=== PATIENT | female | born 1965 | race Caucasian/White ===

== ENCOUNTER 2021-08-09 13:32 | Outpatient (REF) | payer BC, SELFPAY ==
[2021-08-09 14:15] LABS: COVID-19 Test Negative (Negative)
== END 2021-08-09 13:33 | disposition home or self-care (01) ==
LOC: HO.LAB 13:32
PROVIDERS: PCP Internal Medicine; Visit Provider Internal Medicine
DX: Z20.822 Contact with and (suspected) exposure to COVID-19 (principal)
CPT/HCPCS: 87635; C9803

== ENCOUNTER 2022-08-28 11:59 | Outpatient (REF) | payer OTHER, SELFPAY ==
[2022-08-28 13:57] LABS: MANUAL DIFF FLAG NO
[2022-08-28 14:05] LABS: Basophils Percent Auto 0.8 % (0-2); Eosinophils Absolute Auto 0.1 X10*3/uL (0.0-0.4); Hematocrit 41.3 % (37.0-47.0); Hemoglobin 13.8 g/dl (12.0-16.0); Imm Gran Abs Auto 0.02 X10*3/uL (0.00-0.03); Imm Gran Pct Auto 0.4 % (0.0-0.4); Lymphocytes Absolute Auto 1.8 X10*3/uL (1.2-4.9); Lymphocytes Percent Auto 36.4 % (20-40); Mean Corpuscular HGB Conc 33.4 g/dl (31.0-35.0); Mean Corpuscular Hemoglobin 32.5 pg (27.0-33.0); Mean Corpuscular Volume 97.2 fL (80.0-98.0); Mean Platelet Volume 10.1 fL (9.4-12.3); Monocytes Absolute Auto 0.5 X10*3/uL (0.1-1.2); Monocytes Percent Auto 9.8 % (2-11); Neutrophils Absolute Auto 2.5 x10*3/uL (2.0-8.3); Neutrophils Percent Auto 50.6 % (45-73); Platelet Count 207 X10*3/uL (160-400); Red Blood Count 4.25 X10*6/uL (4.20-5.50); Red Cell Distribution Width 12.2 % (11.0-16.0); White Blood Count 4.9 X10*3/uL (4.8-10.8)
[2022-08-28 14:26] LABS: Alanine Aminotransferase 20 U/L (0-31); Albumin Level 4.5 g/dL (3.5-5.0); Alkaline Phosphatase 68 U/L (39-117); Anion Gap 15 (12-20); Aspartate Amino Transferase 31 U/L (5-31); Bilirubin Total 0.6 mg/dL (0.0-1.0); Blood Urea Nitrogen 11 mg/dL (9-16); Calcium 9.8 mg/dL (8.4-10.2); Carbon Dioxide 26 mmol/L (22-29); Chloride 105 mmol/L (96-108); Cholesterol 158 mg/dL; Estimated Glomerular Filt Rate > 60; Glucose Fasting 98 mg/dL (60-99); HDL Cholesterol 43 mg/dL; LDL Cholesterol Calculated 73 mg/dl; Potassium 4.2 mmol/L (3.3-5.1); Sodium 142 mmol/L (135-145); Total Protein 7.2 g/dL (6.5-8.0); Triglycerides 213 mg/dL
[2022-08-28 14:45] LABS: TSH reflex Free T4 1.36 uIU/mL (0.32-4.0)
[2022-09-02 11:18] LABS: Thyroglobulin Antibodies 18 IU/mL (< or = 1)
[2022-09-04 13:48] LABS: Vitamin D 25-OH, D2 <4 ng/mL; Vitamin D 25-OH, D3 51 ng/mL; Vitamin D 25-OH, Total 51 ng/mL (30-100)
== END 2022-08-28 12:00 | disposition home or self-care (01) ==
LOC: HO.HMGCLDS 11:59
PROVIDERS: PCP Internal Medicine; Visit Provider Internal Medicine
DX: I25.10 Atherosclerotic heart disease of native coronary artery without angina pectoris (principal); N28.9 Disorder of kidney and ureter, unspecified; E03.8 Other specified hypothyroidism; G47.9 Sleep disorder, unspecified; Z95.5 Presence of coronary angioplasty implant and graft; Z76.89 Persons encountering health services in other specified circumstances
CPT/HCPCS: 36415; 80053; 80061; 82306; 84443; 85025; 86800

== ENCOUNTER 2022-11-26 12:58 | Outpatient (AMB) | payer OTHER, SELFPAY ==
[2022-11-26 13:05] VITALS: BP 136/84; PULSE 84; O2SAT 95; BMI 21.8
--- NOTE | 2022-11-26 13:05 | MHC.PC.OV ---
Vital Signs 11/26/22 13:05 Height 4 ft 11 in Weight 108 lb 2 oz BMI 21.8 BP 136/84 Blood Pressure Location Lt brachial Position Sitting Pulse 84 Pulse Source Pulse Oximeter Pulse Oximetry (%) 95 Oxygen Delivery Method Room Air Intake Visit Reasons: 3 Month follow up Allergies seafood Adverse Reaction (Severe, Verified 11/26/22 13:06) Anaphylaxis Medication List - Last Reconciled 11/26/22 by Geraldo Rajan MD amlodipine 5 mg PO QPM apixaban (Eliquis) 5 mg PO BID cholecalciferol (vitamin D3) 125 mcg PO DAILY conjugated estrogens (Premarin) 0.625 mg vaginal DAILY famotidine 20 mg PO DAILY fenofibrate micronized 134 mg PO DAILY isosorbide dinitrate 10 mg PO BID levothyroxine 50 mcg PO DAILY loratadine 10 mg PO DAILY metoprolol succinate ER 200 mg PO BEDTIME mirtazapine 15 mg PO QPM pravastatin 40 mg PO DAILY Tobacco use date assessed: 11/26/22 Dental Screening Dental Screen Date: 11/26/22 Did you have a dental visit in the last 12 months?: Yes Did you have a dental problem in the last 6 months where you did not have access to dental care?: No Was dental information given to patient?: No HPI 3 Month follow up HPI Details Patient is a 57-year-old female came in today for her regular follow-up appointment Patient is complaining of possible UTI she is having dysuria and also had blood in her urine 3 days ago. Her symptoms continue. I have ordered urinalysis and I have sent Macrobid for 5 days Patient have a history of premature coronary artery disease, she had 1st [place] at the age of 32. Currently she has 3 coronary artery stents present. She is on a blood thinner for atrial fibrillation which will be a chronic medication She is seeing junior high school teacher Dr. Aguirre with [facility]. However all her medications are coming from PCP office Patient also have stage 2 kidney disease and is seeing Dr Rajput Patient is also on metoprolol 200 mg along with Eliquis and isosorbide , and amlodipine 5 mg History of osteopenia patient had DEXA scan done May of 2021 carotid artery disease: 70% bilateral blockage patient is seeing a vascular specialist for it and having carotid ultrasound every 6 months. Difficulty sleeping at night since menopause patient is on mirtazapine 15 mg. Famotidine for GERD controlled Lipid disorder: Continue fenofirate and pravastatin Allergies: Patient is on loratadine. Patient also have hypothyroidism and is currently taking levothyroxine 50 mcg She has an OBGYN and is taking hormonal vaginal cream through them. Follow-up 3 months [facility] Family History Sister PTSD (post-traumatic stress disorder) Delusional disorder Daughter Bipolar 1 disorder Father Alcohol abuse Social History Housing: House Patient Tobacco Use Status: Current everyday Tobacco user Cigarettes Per Day: 5 e-Cigarette/Vaping Use: Never Used service: No Current occupational status: employed Current occupation: [employer] Current occupational exposures/hazards: No Cognitive needs: No Hearing needs: No Vision needs: Yes Questionnaire Thrive Questionnaire Date Thrive assessed: 08/27/22 AUDIT C Alcohol Use Questionnaire (AUDIT-C) 1. How often do you have a drink containing alcohol?: 4 or more times a week 2. How many drinks containing alcohol do you have on a typical day when you are drinking?: 3 or 4 3. How often do you have six or more drinks on one occasion?: Never Total Score: 5 Score Reviewed/Action Taken: Yes SADIA-7 AMB Questionnaire SADIA-7 Date SADIA - 7 assessed: 08/27/22 Source: Developed by Drs. Michael Asher, Naila Freeman, Noah Butts and colleagues, with an educational anel from [employer] Review of Systems Const Denies chills and Denies fever(s) ENT Denies epistaxis and Denies nasal discharge Card Denies chest pain Resp Denies chest congestion, Denies cough and Denies hemoptysis GI Denies diarrhea and Denies nausea Skin/Breast Denies rash Neuro Reports no additional complaints Psych Reports no additional complaints Endo Reports no additional complaints Physical exam (Primary Care) Vital Signs: Last Vital Signs Pulse 84 11/26/22 13:05 BP 136/84 11/26/22 13:05 Pulse Ox 95 11/26/22 13:05 Oxygen Delivery Method Room Air 11/26/22 13:05 BMI result Body Mass Index 21.8 Tobacco/Smoking Status: Tobacco use Status Tobacco use date assessed 11/26/22 11/26/22 13:08 Patient Tobacco Use Status Current everyday Tobacco 11/26/22 13:08 e-Cigarette/Vaping Use Never Used 11/26/22 13:08 Thrive Assessment: Date of Thrive Assessment Date Thrive assessed 08/27/22 11/26/22 13:08 Const General: cooperative, comfortable and no acute distress Orientation/consciousness: patient oriented x3 HENMT Head: Yes normocephalic Eyes General: appearance normal, both eyes and all related structures Neck Neck: Yes supple Resp Effort & Inspection: normal respiratory effort, no cough and no stridor Cardio Rhythm: regular rhythm Heart sounds: S1 normal heart sound present and S2 normal heart sound present Skin General skin exam: turgor normal Neuro General: patient oriented x3, tone normal and moves all extremities Extrem Right lower extremity: no edema Left lower extremity: no edema Assessment and Plan Assessment & Plan (1) Dysuria: Code(s): R30.0 - Dysuria (2) CAD (coronary artery disease): Code(s): I25.10 - Atherosclerotic heart disease of [place] coronary artery without angina pectoris (3) Stented coronary artery: Code(s): Z95.5 - Presence of coronary angioplasty implant and graft (4) Nephropathy: Code(s): N28.9 - Disorder of kidney and ureter, unspecified (5) Other specified hypothyroidism: Code(s): E03.8 - Other specified hypothyroidism (6) Difficulty sleeping: Code(s): G47.9 - Sleep disorder, unspecified (7) Lipid disorder: Code(s): E78.9 - Disorder of lipoprotein metabolism, unspecified (8) Environmental allergies: Code(s): Z91.09 - Other allergy status, other than to drugs and biological substances (9) Chronic GERD: Code(s): K21.9 - Gastro-esophageal reflux disease without esophagitis Plan Patient is a 57-year-old female came in today for her regular follow-up appointment Patient is complaining of possible UTI she is having dysuria and also had blood in her urine 3 days ago. Her symptoms continue. I have ordered urinalysis and I have sent Macrobid for 5 days Patient have a history of premature coronary artery disease, she had 1st [place] at the age of 32. Currently she has 3 coronary artery stents present. She is on a blood thinner for atrial fibrillation which will be a chronic medication She is seeing junior high school teacher Dr. Aguirre with [facility]. However all her medications are coming from PCP office Patient also have stage 2 kidney disease and is seeing Dr Rajput Patient is also on metoprolol 200 mg along with Eliquis and isosorbide , and amlodipine 5 mg History of osteopenia patient had DEXA scan done May of 2021 carotid artery disease: 70% bilateral blockage patient is seeing a vascular specialist for it and having carotid ultrasound every 6 months. Difficulty sleeping at night since menopause patient is on mirtazapine 15 mg. Famotidine for GERD controlled Lipid disorder: Continue fenofirate and pravastatin Allergies: Patient is on loratadine. Patient also have hypothyroidism and is currently taking levothyroxine 50 mcg She has an OBGYN and is taking hormonal vaginal cream through them. Follow-up 3 months Orders: Orders UA CC w/rflx Micro + Cult Today R30.0 - Dysuria Medications: New nitrofurantoin monohyd/m-cryst 100 mg (Macrobid) must administer with a meal/food 100 mg PO Q12H 5 days 10 caps 0RF Coding Level of Care Code Est Pt Level 4 (44069) Diagnoses Dysuria R30.0 CAD (coronary artery disease) I25.10 Stented coronary artery Z95.5 Nephropathy N28.9 Other specified hypothyroidism E03.8 Difficulty sleeping G47.9 Lipid disorder E78.9 Environmental allergies Z91.09 Chronic GERD K21.9
== END 2022-11-26 13:33 | disposition home or self-care (01) ==
PROVIDERS: Visit Provider Internal Medicine
DX: K21.9 Gastro-esophageal reflux disease without esophagitis (principal); Z95.5 Presence of coronary angioplasty implant and graft; E03.8 Other specified hypothyroidism; Z91.09 Other allergy status, other than to drugs and biological substances; R30.0 Dysuria; I25.10 Atherosclerotic heart disease of native coronary artery without angina pectoris; N28.9 Disorder of kidney and ureter, unspecified; G47.9 Sleep disorder, unspecified; E78.9 Disorder of lipoprotein metabolism, unspecified
CPT/HCPCS: 99214

== ENCOUNTER 2022-11-26 13:34 | Outpatient (REF) | payer OTHER, SELFPAY ==
[2022-11-26 16:15] LABS: Appearance Urine Clear; Color Urine DK YELLOW; Glucose Urine UA Negative (Negative); Leukocyte Esterase Urine Negative (Negative); Nitrite Urine Negative (Negative); PH 5.5 (5.0-9.0); Specific Gravity - Urine 1.025 (1.005-1.025); Urine Blood Negative (Negative); Urine Ketones Trace mg/dL (Negative); Urine Protein Trace mg/dL (Neg-Trace)
== END 2022-11-26 13:35 | disposition home or self-care (01) ==
LOC: HO.HMGCLDS 13:34
PROVIDERS: PCP Internal Medicine; Visit Provider Internal Medicine
DX: R30.0 Dysuria (principal)
CPT/HCPCS: 81003

== ENCOUNTER 2023-02-27 13:00 | Outpatient (AMB) | payer OTHER, SELFPAY ==
--- NOTE | 2023-02-27 13:05 | MHC.PC.OV ---
Vital Signs 02/27/23 13:06 Height 4 ft 11 in Weight 104 lb BMI 21.0 BP 134/80 Blood Pressure Location Lt brachial Position Sitting Pulse 97 Pulse Source Pulse Oximeter Pulse Oximetry (%) 95 Oxygen Delivery Method Room Air Intake Visit Reasons: 3 month follow up Intake Note: Pt is here today for 3 months follow up visit. Allergies seafood Adverse Reaction (Severe, Verified 02/27/23 13:09) Anaphylaxis Medication List - Last Reconciled 02/27/23 by Geraldo Rajan MD amlodipine 5 mg PO QPM apixaban (Eliquis) 5 mg PO BID cholecalciferol (vitamin D3) 125 mcg PO DAILY conjugated estrogens (Premarin) 0.625 mg vaginal DAILY famotidine 20 mg PO DAILY fenofibrate micronized 134 mg PO DAILY isosorbide dinitrate 10 mg PO BID levothyroxine 50 mcg PO DAILY loratadine 10 mg PO DAILY metoprolol succinate ER 200 mg PO BEDTIME mirtazapine 15 mg PO QPM pravastatin 40 mg PO DAILY Tobacco use date assessed: 11/26/22 HPI 3 month follow up HPI Details Patient is a 57-year-old female came in today for her regular follow-up appointment Continued to drain her Alcohol Services goal is 7 patient does admit that she have a problem with drinking excessive alcohol However she says that if she does not drink she cannot fall asleep. She is currently taking mirtazapine 15 mg to sleep at night as well. We talked about the toxic effect of alcohol and I have offered her help he informed medication to counteract the withdrawal affect if she do decide to stop. Patient says that she will think about it and she will get back to me meanwhile she will try to cut back. She has developed of small cyst on her index finger left hand which is causing problem using hand she is requesting a referral to a hand specialist I have ordered x-ray as well to further evaluate the problem. Patient have a history of premature coronary artery disease, she had 1st [place] at the age of 32. Currently she has 3 coronary artery stents present. She is on a blood thinner for atrial fibrillation which will be a chronic medication She is seeing forestry farm laborer Dr. Aguirre with [facility]. However all her medications are coming from PCP office Patient also have stage 2 kidney disease and was seeing Dr Rajput however her kidney functions are within normal limits now we are keeping an eye Patient says that her wine bottle inspector called her upset that he is leaving the practice. Patient is also on metoprolol 200 mg along with Eliquis and isosorbide , and amlodipine 5 mg, blood pressure is stable patient is monitoring blood pressure at home as well History of osteopenia patient had DEXA scan done May of 2021 , continue vitamin-D supplement and weight-bearing exercises carotid artery disease: 70% bilateral blockage patient is seeing a vascular specialist for it and having carotid ultrasound every 6 months. Difficulty sleeping at night since menopause patient is on mirtazapine 15 mg, she has tried taking 30 mg mirtazapine rather than drinking at night but that made her too groggy in the morning I have talked to further, that go if she stops drinking alcohol she will be able to tolerate 30 mg and will be able to sleep.. Famotidine for GERD controlled Lipid disorder: Continue fenofirate and pravastatin Allergies: Patient is on loratadine. Patient also have hypothyroidism and is currently taking levothyroxine 50 mcg she is due for labs She has an OBGYN and is taking hormonal vaginal cream through them. Follow-up 3 months Flu vaccine given [facility] Family History Sister PTSD (post-traumatic stress disorder) Delusional disorder Daughter Bipolar 1 disorder Father Alcohol abuse Social History Housing: House Patient Tobacco Use Status: Current everyday Tobacco user Cigarettes Per Day: 5 e-Cigarette/Vaping Use: Never Used service: No Current occupational status: employed Current occupation: [employer] Current occupational exposures/hazards: No Cognitive needs: No Hearing needs: No Vision needs: Yes Questionnaire Thrive Questionnaire Date Thrive assessed: 08/27/22 I am a: Patient What is your living situation today?: I have a steady place to live Within the past 12 months, did the food you bought not last and you didn't have the money to get more?: Sometimes True Within the past 12 months, did you worry whether your food would run out before you got money to buy more?: Sometimes True AUDIT C Alcohol Use Questionnaire (AUDIT-C) 1. How often do you have a drink containing alcohol?: 4 or more times a week 2. How many drinks containing alcohol do you have on a typical day when you are drinking?: 3 or 4 3. How often do you have six or more drinks on one occasion?: Monthly Total Score: 7 SADIA-7 AMB Questionnaire SADIA-7 Date SADIA - 7 assessed: 08/27/22 Feeling nervous, anxious, or on edge: 1 = Several days Not being able to stop or control worryin = Not at all Worrying too much about different things: 1 = Several days Trouble relaxin = Several days Being so restless that it is hard to sit still: 0 = Not at all Becoming easily annoyed or irritable: 1 = Several days Feeling afraid as if something awful might happen: 0 = Not at all Total SADIA-7 score (0-4 normal; 5-9 mild; 10-14 moderate; 15-21 severe): 4 Source: Developed by Drs. Michael Asher, Naila Freeman, Noah Butts and colleagues, with an educational anel from [employer]. Review of Systems Const Denies chills and Denies fever(s) ENT Denies epistaxis and Denies nasal discharge Card Denies chest pain Resp Denies chest congestion, Denies cough and Denies hemoptysis GI Denies diarrhea and Denies nausea Skin/Breast Denies rash Neuro Reports no additional complaints Psych Reports no additional complaints Endo Reports no additional complaints Physical exam (Primary Care) Vital Signs: Last Vital Signs Pulse 97 02/27/23 13:06 BP 134/80 02/27/23 13:06 Pulse Ox 95 02/27/23 13:06 Oxygen Delivery Method Room Air 02/27/23 13:06 BMI result Body Mass Index 21.0 Tobacco/Smoking Status: Tobacco use Status Tobacco use date assessed 11/26/22 02/27/23 13:12 Patient Tobacco Use Status Current everyday Tobacco 02/27/23 13:12 e-Cigarette/Vaping Use Never Used 02/27/23 13:12 Thrive Assessment: Date of Thrive Assessment Date Thrive assessed 08/27/22 02/27/23 13:12 Const General: cooperative, comfortable and no acute distress Orientation/consciousness: patient oriented x3 HENMT Head: Yes normocephalic Eyes General: appearance normal, both eyes and all related structures Neck Neck: Yes supple Resp Effort & Inspection: normal respiratory effort, no cough and no stridor Cardio Rhythm: regular rhythm Heart sounds: S1 normal heart sound present and S2 normal heart sound present Skin General skin exam: turgor normal Neuro General: patient oriented x3, tone normal and moves all extremities Extrem Right lower extremity: no edema Left lower extremity: no edema Office Procedures Flu Questionnaire Does the patient have a severe egg allergy?: No Does the patient have severe life threatening allergies?: No Does the patient have a fever or illness today?: No Has the patient ever had Guillain-Hornitos Syndrome?: No Has the patient ever had any past reaction to a flu shot?: No Immunizations flu vacc [id number] 6mos up(PF) 60 mcg(15 mcgx4)/0.5 mL IM syringe Performing Provider: Geraldo Rajan MD Performing Location: [facility] Administered by: Myke Manuel CMA on 02/27/23 13:32 Dose Route Admin Location Dispensed Lot Number Expiration Date NDC Cart Driver 0.5 mL IM Right Deltoid 0.5 mL [id number] 11/15/23 [id number] [place] VIS Given Date VIS Provided VIS Publication Date 02/27/23 Single Vaccine 20 Eligibility Eligibility Date Funding Source Not [facility] Eligible 02/27/23 Private Assessment and Plan Assessment & Plan (1) Lipid disorder: Code(s): E78.9 - Disorder of lipoprotein metabolism, unspecified (2) Alcoholism: Code(s): F10.20 - Alcohol dependence, uncomplicated (3) Finger pain, left: Code(s): M79.645 - Pain in left finger(s) (4) Other specified hypothyroidism: Code(s): E03.8 - Other specified hypothyroidism (5) Nephropathy: Code(s): N28.9 - Disorder of kidney and ureter, unspecified (6) Stented coronary artery: Code(s): Z95.5 - Presence of coronary angioplasty implant and graft (7) CAD (coronary artery disease): Code(s): I25.10 - Atherosclerotic heart disease of [place] coronary artery without angina pectoris Qualifiers: Associated angina: with stable angina Coronary Disease-Associated Artery/Lesion type: [place] artery [place] vs. transplanted heart: [place] heart Qualified Code(s): I25.118 - Atherosclerotic heart disease of [place] coronary artery with other forms of angina pectoris (8) Difficulty sleeping: Code(s): G47.9 - Sleep disorder, unspecified (9) Environmental allergies: Code(s): Z91.09 - Other allergy status, other than to drugs and biological substances (10) Chronic GERD: Code(s): K21.9 - Gastro-esophageal reflux disease without esophagitis (11) Hx of intermediate use of blood thinners: Code(s): Z92.29 - Personal history of other drug therapy (12) Alcohol cessation counseling: Code(s): Z71.41 - Alcohol abuse counseling and surveillance of alcoholic Plan Patient is a 57-year-old female came in today for her regular follow-up appointment Continued to drain her Alcohol Services goal is 7 patient does admit that she have a problem with drinking excessive alcohol However she says that if she does not drink she cannot fall asleep. She is currently taking mirtazapine 15 mg to sleep at night as well. We talked about the toxic effect of alcohol and I have offered her help he informed medication to counteract the withdrawal affect if she do decide to stop. Patient says that she will think about it and she will get back to me meanwhile she will try to cut back. She has developed of small cyst on her index finger left hand which is causing problem using hand she is requesting a referral to a hand specialist I have ordered x-ray as well to further evaluate the problem. Patient have a history of premature coronary artery disease, she had 1st [place] at the age of 32. Currently she has 3 coronary artery stents present. She is on a blood thinner for atrial fibrillation which will be a chronic medication She is seeing forestry farm laborer Dr. Aguirre with [facility]. However all her medications are coming from PCP office Patient also have stage 2 kidney disease and was seeing Dr Rajput however her kidney functions are within normal limits now we are keeping an eye Patient says that her wine bottle inspector called her upset that he is leaving the practice. Patient is also on metoprolol 200 mg along with Eliquis and isosorbide , and amlodipine 5 mg, blood pressure is stable patient is monitoring blood pressure at home as well History of osteopenia patient had DEXA scan done May of 2021 , continue vitamin-D supplement and weight-bearing exercises carotid artery disease: 70% bilateral blockage patient is seeing a vascular specialist for it and having carotid ultrasound every 6 months. Difficulty sleeping at night since menopause patient is on mirtazapine 15 mg, she has tried taking 30 mg mirtazapine rather than drinking at night but that made her too groggy in the morning I have talked to further, that go if she stops drinking alcohol she will be able to tolerate 30 mg and will be able to sleep.. Famotidine for GERD controlled Lipid disorder: Continue fenofirate and pravastatin Allergies: Patient is on loratadine. Patient also have hypothyroidism and is currently taking levothyroxine 50 mcg she is due for labs She has an OBGYN and is taking hormonal vaginal cream through them. Follow-up 3 months Flu vaccine given Orders: Orders Complete Blood Count Auto Diff Today E03.8 - Other specified hypothyroidism, E78.9 - Disorder of lipoprotein metabolism, unspecified, G47.9 - Sleep disorder, unspecified, I25.10 - Atherosclerotic heart disease of [place] coronary artery without angina pectoris, K21.9 - Gastro-esophageal reflux disease without esophagitis, N28.9 - Disorder of kidney and ureter, unspecified, Z91.09 - Other allergy status, other than to drugs and biological substances, Z95.5 - Presence of coronary angioplasty implant and graft TSH reflex Free T4 Today E03.8 - Other specified hypothyroidism, E78.9 - Disorder of lipoprotein metabolism, unspecified, G47.9 - Sleep disorder, unspecified, I25.10 - Atherosclerotic heart disease of [place] coronary artery without angina pectoris, K21.9 - Gastro-esophageal reflux disease without esophagitis, N28.9 - Disorder of kidney and ureter, unspecified, Z91.09 - Other allergy status, other than to drugs and biological substances, Z95.5 - Presence of coronary angioplasty implant and graft Lipid Panel Today E78.9 - Disorder of lipoprotein metabolism, unspecified, F10.20 - Alcohol dependence, uncomplicated, N28.9 - Disorder of kidney and ureter, unspecified Magnesium Today E78.9 - Disorder of lipoprotein metabolism, unspecified, F10.20 - Alcohol dependence, uncomplicated, N28.9 - Disorder of kidney and ureter, unspecified Vitamin B12 Today E78.9 - Disorder of lipoprotein metabolism, unspecified, F10.20 - Alcohol dependence, uncomplicated, N28.9 - Disorder of kidney and ureter, unspecified XR finger LT min 2V Today M79.645 - Pain in left finger(s) Comprehensive [place]. Panel Fast Today E78.9 - Disorder of lipoprotein metabolism, unspecified, F10.20 - Alcohol dependence, uncomplicated, N28.9 - Disorder of kidney and ureter, unspecified Influenza [id number] Immunization Today Z23 - Encounter for immunization Referrals Hand Surgery Referral M79.645 - Pain in left finger(s) Coding Level of Care Code Est Pt Level 4 (59427) Diagnoses Lipid disorder E78.9 Alcoholism F10.20 Finger pain, left M79.645 Other specified hypothyroidism E03.8 Nephropathy N28.9 Stented coronary artery Z95.5 Coronary artery disease of [place] artery of [place] heart with stable angina pectoris I25.118 Associated angina: with stable angina Coronary Disease-Associated Artery/Lesion type: [place] artery [place] vs. 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
[2023-02-27 13:06] VITALS: BP 134/80; PULSE 97; O2SAT 95; BMI 21.0
== END 2023-02-27 14:02 | disposition home or self-care (01) ==
PROVIDERS: PCP Internal Medicine; Visit Provider Internal Medicine
DX: Z23 Encounter for immunization (principal)
CPT/HCPCS: 90471; 90686; 99214

== ENCOUNTER 2023-02-27 13:32 | Outpatient (REF) | payer OTHER, SELFPAY ==
[2023-02-27 16:04] LABS: MANUAL DIFF FLAG NO
[2023-02-27 16:09] LABS: Basophils Absolute Auto 0.1 X10*3/uL (0.0-0.2); Basophils Percent Auto 0.9 % (0-2); Eosinophils Absolute Auto 0.1 X10*3/uL (0.0-0.4); Eosinophils Percent Auto 1.6 % (0-4); Hematocrit 42.8 % (37.0-47.0); Hemoglobin 14.4 g/dl (12.0-16.0); Imm Gran Abs Auto 0.02 X10*3/uL (0.00-0.03); Imm Gran Pct Auto 0.4 % (0.0-0.4); Lymphocytes Absolute Auto 1.5 X10*3/uL (1.2-4.9); Mean Corpuscular HGB Conc 33.6 g/dl (31.0-35.0); Mean Corpuscular Hemoglobin 32.6 pg (27.0-33.0); Mean Corpuscular Volume 96.8 fL (80.0-98.0); Mean Platelet Volume 10.5 fL (9.4-12.3); Monocytes Absolute Auto 0.6 X10*3/uL (0.1-1.2); Neutrophils Absolute Auto 3.3 x10*3/uL (2.0-8.3); Neutrophils Percent Auto 60.1 % (45-73); Platelet Count 178 X10*3/uL (160-400); Red Blood Count 4.42 X10*6/uL (4.20-5.50); Red Cell Distribution Width 12.1 % (11.0-16.0); White Blood Count 5.5 X10*3/uL (4.8-10.8)
[2023-02-27 16:37] LABS: Alanine Aminotransferase 21 U/L (0-31); Albumin Level 4.6 g/dL (3.5-5.0); Alkaline Phosphatase 62 U/L (39-117); Anion Gap 15 (12-20); Aspartate Amino Transferase 41 U/L (5-31); Bilirubin Total 0.7 mg/dL (0.0-1.0); Blood Urea Nitrogen 10 mg/dL (9-16); Calcium 10.6 mg/dL (8.4-10.2); Carbon Dioxide 27 mmol/L (22-29); Chloride 102 mmol/L (96-108); Cholesterol 160 mg/dL (<200); Estimated Glomerular Filt Rate > 60; Glucose Fasting 97 mg/dL (60-99); HDL Cholesterol 47 mg/dL (>40); LDL Cholesterol Calculated 74 mg/dL (<100); Magnesium 1.5 mg/dL (1.6-2.6); Potassium 4.2 mmol/L (3.3-5.1); Sodium 140 mmol/L (135-145); Triglycerides 195 mg/dL (<150)
[2023-02-27 16:44] LABS: TSH reflex Free T4 2.01 uIU/mL (0.32-4.0)
[2023-02-27 16:54] LABS: Vitamin B12 285 pg/mL (200-900)
== END 2023-02-27 13:33 | disposition home or self-care (01) ==
LOC: HO.HMGCLDS 13:32
PROVIDERS: PCP Internal Medicine; Visit Provider Internal Medicine
DX: E78.9 Disorder of lipoprotein metabolism, unspecified (principal); N28.9 Disorder of kidney and ureter, unspecified; E03.8 Other specified hypothyroidism; I25.10 Atherosclerotic heart disease of native coronary artery without angina pectoris; G47.9 Sleep disorder, unspecified; K21.9 Gastro-esophageal reflux disease without esophagitis; F10.20 Alcohol dependence, uncomplicated; Z95.5 Presence of coronary angioplasty implant and graft; Z91.09 Other allergy status, other than to drugs and biological substances
CPT/HCPCS: 36415; 80053; 80061; 82607; 83735; 84443; 85025

== ENCOUNTER 2023-03-02 11:49 | Outpatient (REF) | payer OTHER, SELFPAY ==
--- NOTE | ~2023-03-02 | XR_ITS ---
EXAMINATION: XR FINGER, LEFT CLINICAL INFORMATION: Left finger pain. COMPARISON: None available. TECHNIQUE: PA view of the left hand as well as oblique and lateral views of the left index finger. FINDINGS: Soft tissue calcification along the ulnar aspect of the 2nd distal interphalangeal joint measuring up to 0.5 cm with adjacent bony remodeling. Mild overlying soft tissue swelling. No adjacent periarticular erosion. No acute fracture or dislocation. No joint space narrowing or marginal osteophytes. No concerning lytic or blastic osseous lesion. XR/XR finger LT min 2V IMPRESSION: Dystrophic calcification along the ulnar aspect of the second distal interphalangeal joint with adjacent soft tissue swelling. Findings could represent sequela of remote trauma. No adjacent osseous erosion to suggest gout arthropathy, however, this cannot be entirely excluded in the appropriate clinical setting.
== END 2023-03-02 11:50 | disposition home or self-care (01) ==
LOC: HO.HMGCX 11:49
PROVIDERS: PCP Internal Medicine; Visit Provider Internal Medicine
DX: M79.645 Pain in left finger(s) (principal)
CPT/HCPCS: 73140

== ENCOUNTER 2023-03-05 08:42 | Outpatient (AMB) | payer OTHER, SELFPAY ==
--- NOTE | 2023-03-05 10:11 | MHC.PC.OV ---
Intake Visit Reasons: Discuss Labs ~[phone] Allergies seafood Adverse Reaction (Severe, Verified 03/05/23 10:12) Anaphylaxis Medication List - Last Reconciled 03/05/23 by Geraldo Rajan MD amlodipine 5 mg PO QPM apixaban (Eliquis) 5 mg PO BID cholecalciferol (vitamin D3) 125 mcg PO DAILY conjugated estrogens (Premarin) 0.625 mg vaginal DAILY famotidine 20 mg PO DAILY fenofibrate micronized 134 mg PO DAILY isosorbide dinitrate 10 mg PO BID levothyroxine 50 mcg PO DAILY loratadine 10 mg PO DAILY metoprolol succinate ER 200 mg PO BEDTIME mirtazapine 15 mg PO QPM pravastatin 40 mg PO DAILY Tobacco use date assessed: 03/05/23 Dental Screening Dental Screen Date: 03/05/23 Did you have a dental visit in the last 12 months?: Yes Did you have a dental problem in the last 6 months where you did not have access to dental care?: No Was dental information given to patient?: Patient has dentist HPI Discuss Labs ~[phone] HPI Details Patient is a 57-year-old female this is a tele medicine visit to go over lab reports Patient's calcium level came back slightly elevated B12 level is low normal And magnesium came back low I have sent supplement for magnesium in B12 patient is to continue that for 3 months and we will repeat level again Her calcium level was normal before we will repeated again in 3 months as well One of her liver enzyme is also in 40s we will continue to monitor that. Patient have appointment with me in 3 months for follow-up she will have labs done before visit The lump on her index finger x-ray shows possible old trauma and some calcification She has appointment for evaluation by orthopedic next month. [facility] Family History Sister PTSD (post-traumatic stress disorder) Delusional disorder Daughter Bipolar 1 disorder Father Alcohol abuse Social History Housing: House Patient Tobacco Use Status: Current everyday Tobacco user Cigarettes Per Day: 5 e-Cigarette/Vaping Use: Never Used service: No Current occupational status: employed Current occupation: [employer] Current occupational exposures/hazards: No Cognitive needs: No Hearing needs: No Vision needs: Yes Questionnaire Thrive Questionnaire Date Thrive assessed: 08/27/22 AUDIT C Alcohol Use Questionnaire (AUDIT-C) 1. How often do you have a drink containing alcohol?: 4 or more times a week 2. How many drinks containing alcohol do you have on a typical day when you are drinking?: 3 or 4 3. How often do you have six or more drinks on one occasion?: Never Total Score: 5 Score Reviewed/Action Taken: Yes SADIA-7 AMB Questionnaire SADIA-7 Date SADIA - 7 assessed: 08/27/22 Source: Developed by Drs. Michael Asher, Naila Freeman, Noah Butts and colleagues, with an educational anel from [employer]. Review of Systems Const Denies chills and Denies fever(s) ENT Denies epistaxis and Denies nasal discharge Card Denies chest pain Resp Denies chest congestion, Denies cough and Denies hemoptysis GI Denies diarrhea and Denies nausea Skin/Breast Denies rash Neuro Reports no additional complaints Psych Reports no additional complaints Endo Reports no additional complaints Physical exam (Primary Care) Tobacco/Smoking Status: Tobacco use Status Tobacco use date assessed 03/05/23 03/05/23 10:13 Patient Tobacco Use Status Current everyday Tobacco 03/05/23 10:13 e-Cigarette/Vaping Use Never Used 03/05/23 10:13 Thrive Assessment: Date of Thrive Assessment Date Thrive assessed 08/27/22 03/05/23 10:13 Telehealth Telehealth Location of provider rendering services: practice address Location of patient: address on file Patient Identification confirmed using: Name, : Yes Telehealth method: voice only Patient verbally consented to treatment: Yes Patient verbally consented to billing insurance company: Yes Patient informed of any privacy concerns related to visit: Yes Assessment and Plan Assessment & Plan (1) Low magnesium level: Code(s): R79.0 - Abnormal level of blood mineral (2) Low vitamin B12 level: Code(s): R79.89 - Other specified abnormal findings of blood chemistry (3) Serum calcium elevated: Code(s): E83.52 - Hypercalcemia (4) LFT elevation: Code(s): R79.89 - Other specified abnormal findings of blood chemistry (5) Finger pain, left: Code(s): M79.645 - Pain in left finger(s) Plan Patient is a 57-year-old female this is a tele medicine visit to go over lab reports Patient's calcium level came back slightly elevated B12 level is low normal And magnesium came back low I have sent supplement for magnesium in B12 patient is to continue that for 3 months and we will repeat level again Her calcium level was normal before we will repeated again in 3 months as well One of her liver enzyme is also in 40s we will continue to monitor that. Patient have appointment with me in 3 months for follow-up she will have labs done before visit The lump on her index finger x-ray shows possible old trauma and some calcification She has appointment for evaluation by orthopedic next month. Orders: Orders Vitamin B12 2 Months E83.52 - Hypercalcemia, R79.0 - Abnormal level of blood mineral, R79.89 - Other specified abnormal findings of blood chemistry Comprehensive Met. Panel 2 Months E83.52 - Hypercalcemia, R79.0 - Abnormal level of blood mineral, R79.89 - Other specified abnormal findings of blood chemistry Magnesium 2 Months E83.52 - Hypercalcemia, R79.0 - Abnormal level of blood mineral, R79.89 - Other specified abnormal findings of blood chemistry Medications: New magnesium oxide 400 mg PO DAILY 90 days 90 caps 0RF cyanocobalamin (vitamin B-12) 1,000 mcg PO DAILY 90 days 90 tabs 0RF Coding Level of Care Code Tele Est Pt Level 4 (51988) Diagnoses Low magnesium level R79.0 Low vitamin B12 level R79.89 Serum calcium elevated E83.52 LFT elevation R79.89 Finger pain, left M79.645 Time Spent (min) 20
== END 2023-03-05 12:09 | disposition home or self-care (01) ==
PROVIDERS: PCP Internal Medicine; Visit Provider Internal Medicine
DX: R79.89 Other specified abnormal findings of blood chemistry (principal); E83.52 Hypercalcemia; M79.645 Pain in left finger(s)
CPT/HCPCS: 99214

== ENCOUNTER 2023-03-25 14:19 | Outpatient (AMB) | payer OTHER, SELFPAY ==
--- NOTE | 2023-03-25 14:28 | MHC.OFFVIS ---
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 States she has a lump she on her finger that has increase in size. States it appeared about 5-6 yrs ago. No injury she can recall. Report this causes discomfort when holding on to a knife, pen or spoon. States it feels tight and restricting her finger ROM. Denies numbness or tingling in finger. Allergies seafood Adverse Reaction (Severe, Verified 03/25/23 14:30) Anaphylaxis Medication List - Last Reconciled 03/25/23 by Smita Davis MD amlodipine 5 mg PO QPM apixaban (Eliquis) 5 mg PO BID cholecalciferol (vitamin D3) 125 mcg PO DAILY conjugated estrogens (Premarin) 0.625 mg vaginal DAILY cyanocobalamin (vitamin B-12) 1,000 mcg PO DAILY 90 days famotidine 20 mg PO DAILY fenofibrate micronized 134 mg PO DAILY isosorbide dinitrate 10 mg PO BID levothyroxine 50 mcg PO DAILY loratadine 10 mg PO DAILY magnesium oxide 400 mg PO DAILY 90 days metoprolol succinate ER 200 mg PO BEDTIME mirtazapine 15 mg PO QPM pravastatin 40 mg PO DAILY HPI HPI Comments History of Present Illness Details The node has been there on left 2nd digit for 10 years. Denies injuries, falls or fracture. It has grown in size. Annoying but not painful, especially when trying to write or hold something. Tight to bend on DIP. Admits morning stiffness, 5 minutes. Right CMC pain told to be arthritis. Had gone to hand specialist at [facility]. Had injection, was painful and didn't work. Denies family history of RA. Denies numbness on fingers. [facility] Family History Sister PTSD (post-traumatic stress disorder) Delusional disorder Daughter Bipolar 1 disorder Father Alcohol abuse Social History Housing: House Patient Tobacco Use Status: Current everyday Tobacco user Cigarettes Per Day: 5 e-Cigarette/Vaping Use: Never Used service: No Current occupational status: employed Current occupation: [employer] Current occupational exposures/hazards: No Cognitive needs: No Hearing needs: No Vision needs: Yes Review of Systems Const All systems reviewed & are unremarkable except as noted in HPI and below Physical Exam Vital Signs: BMI result Body Mass Index 21.0 Constitutional: Patient appears to be in no acute distress, well nourished and well developed. MSK: Palpable movable nodule on ulnar side of left 2nd DIP joint. Mildly tender to touch. Not warm or red. No swelling on fingers. Right CMC joint tender and enlarged. No intrinsic hand weakness noted. No atrophy noted. Franko test negative. Carpal compression test negative. Tinel sign negative. Strength is 5/5 in all muscle groups tested. No increased tone noted. Neurological: Neurologic examination of the upper and lower extremities was nonfocal with intact sensation, muscle stretch reflexes and without focal motor deficits . Trujillo?s negative bilaterally. Gait is non-antalgic without loss of balance. 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 It has been enlarging per patient. No erosions on xray. We will see if Dr. Anderson can remove surgically, referral placed and appointment to be scheduled. In the meantime, we will send for blood tests to rule out inflammatory arthritis or gout (GLENNA, RF and uric acid). Assessment and plan discussed with patient, and patient was agreeable. All questions were answered thoroughly. Smita Davis MD, MARINA Board Certified, [place] Board [employer] Physical Medicine and Rehabilitation (ABPMR) Board Certified, [place] Board of Electrodiagnostic Medicine (ABEM) Orders: Orders Rheumatoid Factor Today M15.1 - Heberden's nodes (with arthropathy), M79.645 - Pain in left finger(s) GLENNA Reflex Titer and Pattern Today M15.1 - Heberden's nodes (with arthropathy), M79.645 - Pain in left finger(s) Uric Acid Today M15.1 - Heberden's nodes (with arthropathy), M79.645 - Pain in left finger(s) Referrals Orthopedics Referral M15.1 - Heberden's nodes (with arthropathy), M79.645 - Pain in left finger(s) Coding Level of Care Code New Pt Level 4 (47171) Diagnoses Finger pain, left M79.645 Heberden's node M15.1
[2023-03-25 14:31] VITALS: BMI 21.0
== END 2023-03-25 14:47 | disposition home or self-care (01) ==
PROVIDERS: PCP Internal Medicine; Visit Provider Physical Medicine & Rehabilitation
DX: M79.645 Pain in left finger(s) (principal); M15.1 Heberden's nodes (with arthropathy)
CPT/HCPCS: 99204

== ENCOUNTER → 2023-03-25 14:19 | Outpatient (BNVA) | payer OTHER, SELFPAY | PROVIDERS: PCP Internal Medicine; Visit Provider Physical Medicine & Rehabilitation | DX: M79.645 Pain in left finger(s) (principal); M15.1 Heberden's nodes (with arthropathy) | CPT/HCPCS: 99202 ==

== ENCOUNTER 2023-03-27 13:12 | Outpatient (REF) | payer OTHER, SELFPAY ==
[2023-03-27 16:10] LABS: Rheumatoid Factor < 13.0 IU/mL (<15.0)
[2023-03-27 16:17] LABS: Uric Acid 5.2 mg/dL (2.4-5.7)
[2023-04-06 15:54] LABS: Anti Nuclear Antibody Pattern Nuclear, Homogeneous; Anti Nuclear Antibody Screen POSITIVE (NEGATIVE)
== END 2023-03-27 13:13 | disposition home or self-care (01) ==
LOC: HO.HMGCLDS 13:12
PROVIDERS: PCP Internal Medicine; Visit Provider Physical Medicine & Rehabilitation
DX: M79.645 Pain in left finger(s) (principal); M15.1 Heberden's nodes (with arthropathy)
CPT/HCPCS: 36415; 84550; 86038; 86039; 86431

== ENCOUNTER 2023-04-15 14:46 | Outpatient (AMB) | payer OTHER, SELFPAY ==
--- NOTE | 2023-04-15 14:53 | MHC.OFFVIS ---
Intake Intake Visit Reasons: OV-excision/removal calcification LT DIP 2nd digit Intake Note: Harman is 57 year old right hand dominant female who presents today to discuss sugery for her bump on her left pointer finger on the DIP joint. Allergies seafood Adverse Reaction (Severe, Verified 04/15/23 14:57) Anaphylaxis HPI OV-excision/removal calcification LT DIP 2nd digit HPI Details Harman is a 57 year old right hand dominant woman who presents to discuss a left index finger mass. She complains of a hard painful lump on the DIP joint of her left index finger. She says this has been present for many years now, and is limiting her daily activities. She says using a pen for writing is difficult for her. She was told by Dr. Bustos that this is a possible Heberdens node and would like to discuss surgery. She denies any hx of Raynaud's disease She is on Eliquis, has a hx of CAD and ETOH abuse. [facility] Family History Sister PTSD (post-traumatic stress disorder) Delusional disorder Daughter Bipolar 1 disorder Father Alcohol abuse Social History Housing: House Patient Tobacco Use Status: Current everyday Tobacco user Cigarettes Per Day: 5 e-Cigarette/Vaping Use: Never Used service: No Current occupational status: employed Current occupation: [employer] Current occupational exposures/hazards: No Cognitive needs: No Hearing needs: No Vision needs: Yes Review of Systems Const All systems reviewed & are unremarkable except as noted in HPI and below Physical Exam Const General: cooperative, healthy appearing and no acute distress Orientation/consciousness: patient oriented x3 HEENT Head: Yes normocephalic and Yes atraumatic Eyes EOM: EOMs intact bilaterally Resp Effort & Inspection: normal respiratory effort and able to speak in complete sentences Cardio Jugular venous distension: no JVD Skin General skin exam: turgor normal Rashes: no rashes Neuro General: patient oriented x3 Extrem Other: Evaluation of Left Upper Extremity: The patient is alert, oriented, and in no acute distress Neuro: Median, Ulnar, Radial nerves motor and sensory intact and sensation is normal to the tips of all digits Vascular: Cap refill brisk ROM: She can make a fist and extend all her digits Skin: No lacerations or abrasions. General: No Ecchymosis. No Erythema or evidence of infection. There is a mass on the ulnar aspect of the DIP joint of the index finger . It is solid and minimally tender. No overlying skin changes. Radiographs: 3 views of the left index finger from 03/02/23 were reviewed by me today in clinic. They show a calcification of the left index finger, ulnar and volar to the DIP joint. 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 Left index finger DIP joint calcification Ulnar side of the joint I educated her about this condition I discussed operative and non-operative treatment options The patient would like to proceed with surgery The risks and benefits of operative treatment were discussed with the patient and the patient wishes to proceed with surgery. These risks include, but are not limited to risk of damage to blood vessels, nerves, tendons, infection, recurrence, incomplete relief of preoperative symptoms, persistent pain, possible need for further surgery and the risks associated with regional blocks and anesthesia. The plan is to take the patient to the operating room sometime in the next few weeks for the following procedures: 1. Left index finger excision of bony mass, under local All of the preoperative paperwork including the consent was filled out today. All the patient's questions were answered. The patient understands that they will be contacted by our spares scheduler soon to schedule this procedure She denies Diabetes, asthma, lung, kidney issues She has a hx of CAD, has a coronary stent in place, and is on Eliquis. She has a hx of ETOH abuse In addition to a digital block, I might consider injecting some lidocaine with epinephrine in the area of the mass. Scribed for Ronit Anderson MD by Mikey Pham, medical staff coordinator, on 04/15/23 at 3:20 PM, EST. 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 transplanted heart: [place] heart Heberden's nodes of left hand M15.1
== END 2023-04-15 15:22 | disposition home or self-care (01) ==
PROVIDERS: PCP Internal Medicine; Visit Provider Orthopaedic Surgery
DX: M25.841 Other specified joint disorders, right hand (principal); Z92.29 Personal history of other drug therapy; I25.118 Atherosclerotic heart disease of native coronary artery with other forms of angina pectoris; M15.1 Heberden's nodes (with arthropathy)
CPT/HCPCS: 99214

== ENCOUNTER → 2023-04-15 14:46 | Outpatient (BNVA) | payer OTHER, SELFPAY | PROVIDERS: PCP Internal Medicine; Visit Provider Orthopaedic Surgery | DX: I25.118 Atherosclerotic heart disease of native coronary artery with other forms of angina pectoris (principal); M15.1 Heberden's nodes (with arthropathy); Z92.29 Personal history of other drug therapy | CPT/HCPCS: 99212 ==

== ENCOUNTER 2023-04-21 10:16 | Outpatient (AMB) | payer OTHER, SELFPAY ==
[2023-04-21 11:42] VITALS: BP 140/80; PULSE 83; TEMP 36.7; O2SAT 97; BMI 20.8
--- NOTE | 2023-04-21 11:42 | AM.OFFWIN_ITS ---
Intake Vital Signs 3 04/21/23 11:42 Height 4 ft 11 in Weight 103 lb BMI 20.8 BP 140/80 H Blood Pressure Location Lt brachial Position Sitting Pulse 83 Pulse Source Pulse Oximeter Temp 98.0 F Pulse Oximetry (%) 97 Oxygen Delivery Method Room Air Intake Visit Reasons: EP RT wrist tik bite Intake Note: pt is here today for tick bite on rt wrist started yesterday morning Patient Tobacco Use Status: Current everyday Tobacco user Allergies seafood Adverse Reaction (Severe, Verified 04/21/23 11:43) Anaphylaxis Medication List - Last Reconciled 04/21/23 by Geraldo Rajan MD amlodipine 5 mg PO QPM apixaban (Eliquis) 5 mg PO BID cholecalciferol (vitamin D3) 125 mcg PO DAILY conjugated estrogens (Premarin) 0.625 mg vaginal DAILY cyanocobalamin (vitamin B-12) 1,000 mcg PO DAILY 90 days famotidine 20 mg PO DAILY fenofibrate micronized 134 mg PO DAILY isosorbide dinitrate 10 mg PO BID levothyroxine 50 mcg PO DAILY loratadine 10 mg PO DAILY magnesium oxide 400 mg PO DAILY 90 days metoprolol succinate ER 200 mg PO BEDTIME mirtazapine 15 mg PO QPM pravastatin 40 mg PO DAILY Do you need a note to return to daycare/school/sports/work: No HPI EP RT wrist tik bite 2 HPI0 Details Patient woke this morning and noticed bug bite on her Right wrist so came in for evaluation She did not see any ticks attached to her skin. But she is concerned about that. I have sent doxycycline monitor mg 2 capsules 1 time [facility] Family History Sister PTSD (post-traumatic stress disorder) Delusional disorder Daughter Bipolar 1 disorder Father Alcohol abuse Social History Housing: House Patient Tobacco Use Status: Current everyday Tobacco user Cigarettes Per Day: 5 e-Cigarette/Vaping Use: Never Used service: No Current occupational status: employed Current occupation: [employer] Current occupational exposures/hazards: No Cognitive needs: No Hearing needs: No Vision needs: Yes Review of Systems Const All systems reviewed & are unremarkable except as noted in HPI and below Physical Exam Vital Signs: Last Vital Signs Temp 98.0 F 04/21/23 11:42 Pulse 83 04/21/23 11:42 BP 140/80 H 04/21/23 11:42 Pulse Ox 97 04/21/23 11:42 Oxygen Delivery Method Room Air 04/21/23 11:42 BMI result Body Mass Index 20.8 Const General: no acute distress Orientation/consciousness: patient oriented x3 Eyes General: appearance normal, both eyes and all related structures Resp Effort & Inspection: normal respiratory effort and able to speak in complete sentences Auscultation: clear to auscultation bilaterally Neuro General: patient oriented x3 Extrem Hand/finger images: 2 1. 1 cm round area slight inflammation with central bug point Psych Mental Status: mental status grossly normal Assessment & Plan Assessment & Plan (1) Bug bite of right hand: Code(s): S60.561A - Insect bite (nonvenomous) of right hand, initial encounter; W57.XXXA - Bitten or stung by nonvenomous insect and other nonvenomous arthropods, initial encounter Qualifiers: Encounter type: initial encounter Qualified Code(s): S60.561A - Insect bite (nonvenomous) of right hand, initial encounter; W57.XXXA - Bitten or stung by nonvenomous insect and other nonvenomous arthropods, initial encounter Plan Patient woke this morning and noticed bug bite on her Right wrist so came in for evaluation She did not see any ticks attached to her skin. But she is concerned about that. I have sent doxycycline monitor mg 2 capsules 1 time Medications: New 2 doxycycline hyclate 200 mg (2 x 100 mg) PO DAILY 2 caps 0RF 1 day Coding Level of Care Code Est Pt Level 3 (43227) Diagnoses Insect bite of right hand, initial encounter S60.561A; W57.XXXA Encounter type: initial encounter
== END 2023-04-21 13:22 | disposition home or self-care (01) ==
PROVIDERS: PCP Internal Medicine; Visit Provider Internal Medicine
DX: S60.561A Insect bite (nonvenomous) of right hand, initial encounter (principal); W57.XXXA Bitten or stung by nonvenomous insect and other nonvenomous arthropods, initial encounter
CPT/HCPCS: 99213

== ENCOUNTER 2023-04-30 13:35 | Outpatient (AMB) | payer OTHER, SELFPAY ==
[2023-04-30 13:38] VITALS: BP 132/80; PULSE 87; O2SAT 97; BMI 21.4
--- NOTE | 2023-04-30 13:38 | HO.NEPHOV_ITS ---
HPI HPI Comments History of Present Illness Details 57-year-old woman with a history of long standing hypertension mild CKD. She has a history of coronary disease status post CO followed by 3 stents. She has a history of excessive alcohol intake and abnormal liver function tests . She has elevated serum ferritin. She is evaluated by Dr. Shaq Nuno and hemochromatosis was ruled out. She has cut down on alcohol intake but continues to drink alcohol. History of significant progress disease and waiting for a repeat carotid ultrasound the next few months Recently she was found to have hypomagnesemia and currently she is on magnesium supplementation PFSH Family History Sister PTSD (post-traumatic stress disorder) Delusional disorder Daughter Bipolar 1 disorder Father Alcohol abuse Social History Housing: House Patient Tobacco Use Status: Current everyday Tobacco user Cigarettes Per Day: 5 e-Cigarette/Vaping Use: Never Used service: No Current occupational status: employed Current occupation: [employer] Current occupational exposures/hazards: No Cognitive needs: No Hearing needs: No Vision needs: Yes Vital Signs 04/30/23 13:38 Height 4 ft 11 in Weight 106 lb BMI 21.4 BP 132/80 Blood Pressure Location Lt brachial Position Sitting Pulse 87 Pulse Source Pulse Oximeter Pulse Oximetry (%) 97 Oxygen Delivery Method Room Air Physical Exam Vital Signs: Last Vital Signs Pulse 87 04/30/23 13:38 BP 132/80 04/30/23 13:38 Pulse Ox 97 04/30/23 13:38 Oxygen Delivery Method Room Air 04/30/23 13:38 BMI result Body Mass Index 21.4 Const General: comfortable Nutritional Appearance: well nourished Orientation/consciousness: patient oriented x3 HEENT Head: No normal to inspection Mouth: moist mucous membranes Neck Neck: Yes supple and Yes no JVD Resp Auscultation: clear to auscultation bilaterally, no rales and rub present Cardio Jugular venous distension: no JVD Palpation: no palpable S3 and no palpable S4 Heart sounds: no rubs GI Palpation (GI): Soft to palpation and nontender Percussion: No Fluid wave present General: Yes no CVA tenderness Back/Spine/Pelvis Back: no CVA tenderness Skin General skin exam: no rashes or lesions noted Neuro General: patient oriented x3 Extrem General: Yes no pedal edema and No clubbing Assessment & Plan Assessment & Plan (1) CKD (chronic kidney disease): Code(s): N18.9 - Chronic kidney disease, unspecified (2) Serum calcium elevated: Code(s): E83.52 - Hypercalcemia Plan 57-year-old man with a history of significant vascular disease and hypertension and CKD. She had a history of KEEGAN with a peak creatinine 1.9. Currently serum creatinine is return to the baseline of 0.8 mg/dL. She probably has underlying CKD due to longstanding hypertension/vascular disease. No significant proteinuria or hematuria. Blood pressure is well controlled. No changes were made to the antihypertensive medication. Encouraged her to stay on low-sodium diet. Increase her to disc continue alcohol intake She had both hypercalcemia and [id number]. I will recheck both calcium and magnesium along with intact PTH. For now will continue with magnesium supplementation Orders: Orders Electrolytes 3 Weeks E83.52 - Hypercalcemia, N18.9 - Chronic kidney disease, unspecified Creatinine 3 Weeks E83.52 - Hypercalcemia, N18.9 - Chronic kidney disease, unspecified Blood Urea Nitrogen 3 Weeks E83.52 - Hypercalcemia, N18.9 - Chronic kidney disease, unspecified Calcium 3 Weeks E83.52 - Hypercalcemia, N18.9 - Chronic kidney disease, unspecified Phosphorus 3 Weeks E83.52 - Hypercalcemia, N18.9 - Chronic kidney disease, unspecified Parathyroid Hormone Intact 3 Weeks E83.52 - Hypercalcemia, N18.9 - Chronic kidney disease, unspecified Coding Level of Care Code Est Pt Level 4 (75398) Diagnoses CKD (chronic kidney disease) N18.9 Serum calcium elevated E83.52 Results Reviewed Nephrology Results: Hgb 14.4 g/dl (12.0-16.0) 02/27/23 WBC 5.5 X10*3/uL (4.8-10.8) 02/27/23 Plt Count 178 X10*3/uL (160-400) 02/27/23 Sodium 140 mmol/L (135-145) 02/27/23 Potassium 4.2 mmol/L (3.3-5.1) 02/27/23 Chloride 102 mmol/L (96-108) 02/27/23 Carbon Dioxide 27 mmol/L (22-29) 02/27/23 BUN 10 mg/dL (9-16) 02/27/23 Creatinine 0.81 mg/dL (0.5-1.4) 02/27/23 Calcium 10.6 mg/dL (8.4-10.2) H 02/27/23 Urine Protein Trace mg/dL (Neg-Trace) 11/26/22
== END 2023-04-30 13:55 | disposition home or self-care (01) ==
PROVIDERS: PCP Internal Medicine; Visit Provider Internal Medicine Hypertension Specialist
DX: N18.9 Chronic kidney disease, unspecified (principal); E83.52 Hypercalcemia
CPT/HCPCS: 99214

== ENCOUNTER → 2023-04-30 13:35 | Outpatient (BNVA) | payer OTHER, SELFPAY | PROVIDERS: PCP Internal Medicine; Visit Provider Internal Medicine Hypertension Specialist | DX: N18.9 Chronic kidney disease, unspecified (principal); E83.52 Hypercalcemia | CPT/HCPCS: 99212 ==

== ENCOUNTER 2023-05-20 11:25 | Outpatient (REF) | payer OTHER, SELFPAY ==
[2023-05-20 13:47] LABS: Anion Gap 12 (12-20); Blood Urea Nitrogen 13 mg/dL (9-16); Calcium 10.1 mg/dL (8.4-10.2); Carbon Dioxide 29 mmol/L (22-29); Chloride 102 mmol/L (96-108); Estimated Glomerular Filt Rate > 60; Phosphorus 3.7 mg/dL (2.7-4.5); Potassium 4.2 mmol/L (3.3-5.1); Sodium 139 mmol/L (135-145)
== END 2023-05-20 11:26 | disposition home or self-care (01) ==
LOC: HO.HMGCLDS 11:25
PROVIDERS: PCP Internal Medicine; Visit Provider Internal Medicine Hypertension Specialist
DX: N18.9 Chronic kidney disease, unspecified (principal); E83.52 Hypercalcemia
CPT/HCPCS: 36415; 80051; 82310; 82565; 83970; 84100; 84520

== ENCOUNTER 2023-05-29 12:31 | Outpatient (AMB) | payer OTHER, SELFPAY ==
[2023-05-29 12:45] VITALS: BP 120/76; PULSE 97; O2SAT 95; BMI 21.0
--- NOTE | 2023-05-29 12:45 | MHC.PC.OV ---
Vital Signs 05/29/23 12:45 Height 4 ft 11 in Weight 104 lb BMI 21.0 BP 120/76 Blood Pressure Location Lt brachial Position Sitting Pulse 97 Pulse Source Pulse Oximeter Pulse Oximetry (%) 95 Oxygen Delivery Method Room Air Intake Visit Reasons: 6 month follow up Allergies seafood Adverse Reaction (Severe, Verified 05/29/23 12:56) Anaphylaxis Medication List - Last Reconciled 05/29/23 by Geraldo Rajan MD amlodipine 5 mg PO QPM apixaban (Eliquis) 5 mg PO BID cholecalciferol (vitamin D3) 125 mcg PO DAILY conjugated estrogens (Premarin) 0.625 mg vaginal DAILY cyanocobalamin (vitamin B-12) 1,000 mcg PO DAILY 90 days famotidine 20 mg PO DAILY fenofibrate micronized 134 mg PO DAILY isosorbide dinitrate 10 mg PO BID levothyroxine 50 mcg PO DAILY loratadine 10 mg PO DAILY magnesium oxide 400 mg PO DAILY 90 days metoprolol succinate ER 200 mg PO BEDTIME mirtazapine 15 mg PO QPM pravastatin 40 mg PO DAILY Tobacco use date assessed: 05/29/23 Dental Screening Dental Screen Date: 05/29/23 Did you have a dental visit in the last 12 months?: Yes Did you have a dental problem in the last 6 months where you did not have access to dental care?: No Was dental information given to patient?: Patient has dentist HPI 6 month follow up HPI Details Patient is a 57-year-old female came in today for a sick visit Symptoms started last night with chills through Hernandez raw and now has cough with clear phlegm no shortness a breath or chest pain There is no nausea vomiting diarrhea abdominal pain no headache I have taken COVID flu and RSV test Strep test done was negative Symptomatic treatment pending reports We will book follow-up appointment next month for her regular checkup [facility] Family History Sister PTSD (post-traumatic stress disorder) Delusional disorder Daughter Bipolar 1 disorder Father Alcohol abuse Social History Housing: House Patient Tobacco Use Status: Current everyday Tobacco user Cigarettes Per Day: 5 e-Cigarette/Vaping Use: Never Used service: No Current occupational status: employed Current occupation: [employer] Current occupational exposures/hazards: No Cognitive needs: No Hearing needs: No Vision needs: Yes Questionnaire PHQ-9 Over the last 2 weeks, how often have you been bothered by any of the following problems? 1. Little interest or pleasure in doing things: not at all 2. Feeling down, depressed, or hopeless: not at all 3. Trouble falling or staying asleep, or sleeping too much: several days 4. Feeling tired or having little energy: several days 5. Poor appetite or overeating: not at all 6. Feeling bad about yourself - or that you are a failure or have let yourself or your family down: not at all 7. Trouble concentrating on things, such as reading the newspaper or watching television: not at all 8. Moving or speaking so slowly that other people could have noticed. Or the opposite - being so fidgety or restless that you have been moving around a lot more than usual: not at all 9. Thoughts that you would be better off or of hurting yourself in some way: not at all Total score: 2 Depression Screening Interpretation: Negative Depression Screening Done: Yes 49126 - PHQ-9 Billing: Yes Source: Developed by Drs. Michael Asher, Naila Freeman, Noah Butts and colleagues, with an educational anel from [employer]. Thrive Questionnaire Date Thrive assessed: 08/27/22 AUDIT C Alcohol Use Questionnaire (AUDIT-C) 1. How often do you have a drink containing alcohol?: 2-3 times a week 2. How many drinks containing alcohol do you have on a typical day when you are drinking?: 3 or 4 3. How often do you have six or more drinks on one occasion?: Never Total Score: 4 SADIA-7 AMB Questionnaire SADIA-7 Date SADIA - 7 assessed: 05/29/23 Feeling nervous, anxious, or on edge: 0 = Not at all Not being able to stop or control worryin = Not at all Worrying too much about different things: 0 = Not at all Trouble relaxin = Not at all Being so restless that it is hard to sit still: 0 = Not at all Becoming easily annoyed or irritable: 0 = Not at all Feeling afraid as if something awful might happen: 0 = Not at all Total SADIA-7 score (0-4 normal; 5-9 mild; 10-14 moderate; 15-21 severe): 0 Source: Developed by Drs. Michael Asher, Naila Freeman, Noah Butts and colleagues, with an educational anel from [employer]. SADIA-7 Assessment Billing SADIA-7 Assessment Tool: SADIA-7 Assessment 78767 Review of Systems Const All systems reviewed & are unremarkable except as noted in HPI and below Physical exam (Primary Care) Vital Signs: Last Vital Signs Pulse 97 05/29/23 12:45 BP 120/76 05/29/23 12:45 Pulse Ox 95 05/29/23 12:45 Oxygen Delivery Method Room Air 05/29/23 12:45 BMI result Body Mass Index 21.0 Tobacco/Smoking Status: Tobacco use Status Tobacco use date assessed 05/29/23 05/29/23 12:59 Patient Tobacco Use Status Current everyday Tobacco 05/29/23 12:46 e-Cigarette/Vaping Use Never Used 05/29/23 12:46 Depression Screening Interpretation: Negative Thrive Assessment: Date of Thrive Assessment Date Thrive assessed 08/27/22 05/29/23 12:46 Const General: no acute distress HENMT Other: No Exudate, slight erythema does not uvula midline Ears: mastoids normal General nose exam: Normal external nose present Throat: Yes posterior oropharynx abnormal Neck Neck: Yes no lymphadenopathy Resp Effort & Inspection: normal respiratory effort Auscultation: clear to auscultation bilaterally Psych Mental Status: mental status grossly normal Assessment and Plan Assessment & Plan (1) Upper respiratory tract infection: Code(s): J06.9 - Acute upper respiratory infection, unspecified Qualifiers: URI type: unspecified viral URI Qualified Code(s): J06.9 - Acute upper respiratory infection, unspecified Plan Patient is a 57-year-old female came in today for a sick visit Symptoms started last night with chills through Hernandez raw and now has cough with clear phlegm no shortness a breath or chest pain There is no nausea vomiting diarrhea abdominal pain no headache I have taken COVID flu and RSV test Strep test done was negative Symptomatic treatment pending reports We will book follow-up appointment next month for her regular checkup Orders: Orders SARS-CoV2/FLU/RSV Today R09.89 - Other specified symptoms and signs involving the circulatory and respiratory systems Coding Level of Care Code Est Pt Level 3 (46760) Diagnoses Viral upper respiratory tract infection J06.9 URI type: unspecified viral URI Additional Codes SADIA-7 Assessment Billing - SADIA-7 Assessment Tool: SADIA-7 Assessment 16313 ([id number])
== END 2023-05-29 13:28 | disposition home or self-care (01) ==
PROVIDERS: PCP Internal Medicine; Visit Provider Internal Medicine
DX: J06.9 Acute upper respiratory infection, unspecified (principal); J02.9 Acute pharyngitis, unspecified
CPT/HCPCS: 87880; 99213

== ENCOUNTER 2023-05-29 16:18 | Outpatient (REF) | payer OTHER, SELFPAY ==
[2023-05-29 17:05] LABS: Influenza A PCR POSITIVE (Negative); Influenza B PCR NEGATIVE (Negative); Resp Syncy Virus RNA Qual PCR NEGATIVE (Negative); SARS COV2 PCR INHOUSE NEGATIVE (Negative)
== END 2023-05-29 16:19 | disposition home or self-care (01) ==
LOC: HO.LNP 16:18
PROVIDERS: Visit Provider Internal Medicine
DX: R09.89 Other specified symptoms and signs involving the circulatory and respiratory systems (principal); Z11.52 Encounter for screening for COVID-19
CPT/HCPCS: 0241U

== ENCOUNTER 2023-06-11 14:49 | Outpatient (AMB) | payer OTHER, SELFPAY ==
--- NOTE | 2023-06-11 14:54 | A.OFFVIS_ITS ---
Intake Vital Signs 06/11/23 14:56 Height 4 ft 11 in Weight 101 lb 6.602 oz BMI 20.5 BP 138/72 Blood Pressure Location Rt brachial Position Sitting Pulse 90 Pulse Source Pulse Oximeter Temp 97.0 F Temp Source Skin Pulse Oximetry (%) 90 L Oxygen Delivery Method Room Air Intake Visit Reasons: joint pain with positive GLENNA Intake Note: New patient presents today for consult. C/o joint pain with positive GLENNA, rule out RA Baggage Porter Required: No Accompanied by: Self / Same As Patient Allergies seafood Adverse Reaction (Severe, Verified 06/11/23 15:08) Anaphylaxis Medication List - Last Reconciled 06/11/23 by Vasu Rehman MD amlodipine 5 mg PO QPM apixaban (Eliquis) 5 mg PO BID cholecalciferol (vitamin D3) 125 mcg PO DAILY conjugated estrogens (Premarin) 0.625 mg vaginal DAILY cyanocobalamin (vitamin B-12) 1,000 mcg PO DAILY 90 days famotidine 20 mg PO DAILY fenofibrate micronized 134 mg PO DAILY isosorbide dinitrate 10 mg PO BID levothyroxine 50 mcg PO DAILY loratadine 10 mg PO DAILY magnesium oxide 400 mg PO DAILY 90 days metoprolol succinate ER 200 mg PO BEDTIME mirtazapine 15 mg PO QPM oseltamivir (Tamiflu) 75 mg PO BID 5 days pravastatin 40 mg PO DAILY HPI HPI Comments History of Present Illness Details This is a 67-year-old female who presents for evaluation of positive GLENNA. Patient states that she has had a bump on the ulnar aspect of the left 2nd DIP for more than 10 years. Recently it has become somewhat enlarged. She was evaluated by physiatry and labs showed a positive GLENNA. She was also referred to hand surgeon and she is scheduled for excision towards the end of July. Patient states that she has stiffness of her fingers and toes that lasts all day every day. The bump on her left index DIP does bother her especially when her writing. She has pain the base of her right thumb, that interferes with her activities such as cooking. She states that she had an injection for that thumb in the past, it lasted 2 weeks but the injection itself was quite painful and she does not want to go through with it again. She states that she has a sister with Crohn's disease. She denies any swollen joints. Denies any weight change. Denies fevers. Of note patient had her 1st heart attack at age 30 s/p stenting. She had another heart attack at age 47. She has a total of 3 stents. She denies any skin rashes. Denies any history of DVT/PE. She denies any history of gout. No known family history of gout or kidney stones PFSH Medical History Afib CAD (coronary artery disease) Family History Sister PTSD (post-traumatic stress disorder) Delusional disorder Crohn's colitis Daughter Bipolar 1 disorder Father Alcohol abuse Social History Housing: House Patient Tobacco Use Status: Current everyday Tobacco user Cigarettes Per Day: 5 e-Cigarette/Vaping Use: Never Used service: No Current occupational status: employed Current occupation: [employer] Current occupational exposures/hazards: No Cognitive needs: No Hearing needs: No Vision needs: Yes Female Reproductive History Menstrual Total pregnancies: 3 Ab induced: 0 Ab spontaneous: 0 Review of Systems Const Denies fever(s) and Denies weight loss Card Reports chest pain and Reports irregular heart rhythm Resp Reports no additional complaints Reports nocturia Musc Reports deformity, Reports arthralgias and Reports stiffness Physical Exam Vital Signs: Last Vital Signs Temp 97.0 F 06/11/23 14:56 Pulse 90 06/11/23 14:56 BP 138/72 06/11/23 14:56 Pulse Ox 90 L 06/11/23 14:56 Oxygen Delivery Method Room Air 06/11/23 14:56 BMI result Body Mass Index 20.5 Const General: cooperative, healthy appearing and comfortable Nutritional Appearance: thin Orientation/consciousness: patient oriented x3 Limitations: no limitations HEENT Head: Yes normocephalic and Yes atraumatic Mouth: moist mucous membranes Resp Effort & Inspection: normal respiratory effort and able to speak in complete sentences GI Palpation (GI): Soft to palpation and nontender Neuro General: patient oriented x3 Extrem Other: There is a solid mass on the ulnar aspect of the left 2nd DIP. It is only minimally tender. Osteoarthritic changes of both hands no active synovitis Right 1st CMC joint tenderness Normal nailfold capillaroscopy Negative MTP tenderness bilaterally Negative MCP squeeze test Normal range of motion of elbows and shoulders without pain Assessment & Plan Assessment & Plan (1) GLENNA positive: Code(s): R76.8 - Other specified abnormal immunological findings in serum Plan: This is a 57-year-old female who was referred for evaluation of positive GLENNA 1- 160 homogeneous pattern. I do not see any obvious signs suggestive of an autoimmune rheumatic disease. Clinical picture rather consistent with generalized osteoarthritis. Her positive GLENNA may be related to her positive antithyroglobulin antibody. Will re-evaluate patient after pathology of left index mass is reviewed (2) Mass of finger of left hand: Code(s): R22.32 - Localized swelling, mass and lump, left upper limb Plan: Calcified mass on the ulnar aspect of left index. Patient is scheduled for excision towards the end of July. Will re-evaluate patient after excision. Plan I spent 30 minutes reviewing patient's chart, evaluating patient, counseling patient and documenting in the chart Coding Level of Care Code New Pt Level 3 (92949) Diagnoses GLENNA positive R76.8 Mass of finger of left hand R22.32
[2023-06-11 14:56] VITALS: BP 138/72; PULSE 90; TEMP 36.1; O2SAT 90; BMI 20.5
== END 2023-06-11 15:44 | disposition home or self-care (01) ==
PROVIDERS: PCP Internal Medicine; Visit Provider Student in an Organized Health Care Education/Training Program
DX: R76.8 Other specified abnormal immunological findings in serum (principal); R22.32 Localized swelling, mass and lump, left upper limb
CPT/HCPCS: 99203

== ENCOUNTER → 2023-06-11 14:49 | Outpatient (BNVA) | payer OTHER, SELFPAY | PROVIDERS: PCP Internal Medicine; Visit Provider Student in an Organized Health Care Education/Training Program | DX: R76.8 Other specified abnormal immunological findings in serum (principal); R22.32 Localized swelling, mass and lump, left upper limb | CPT/HCPCS: 99202 ==

== ENCOUNTER 2023-06-19 15:04 | Outpatient (AMB) | payer OTHER, SELFPAY ==
[2023-06-19 15:06] VITALS: BP 122/74; PULSE 88; O2SAT 98; BMI 20.6
--- NOTE | 2023-06-19 15:06 | MHC.PC.OV ---
Vital Signs 06/19/23 15:06 Height 4 ft 11 in Weight 102 lb 4 oz BMI 20.6 BP 122/74 Blood Pressure Location Rt brachial Position Sitting Pulse 88 Pulse Source Pulse Oximeter Pulse Oximetry (%) 98 Oxygen Delivery Method Room Air Intake Visit Reasons: Reschedule 6 Month f/u Allergies seafood Adverse Reaction (Severe, Verified 06/19/23 15:06) Anaphylaxis Medication List - Last Reconciled 06/19/23 by Geraldo Rajan MD amlodipine 5 mg PO QPM apixaban (Eliquis) 5 mg PO BID cholecalciferol (vitamin D3) 125 mcg PO DAILY conjugated estrogens (Premarin) 0.625 mg vaginal DAILY cyanocobalamin (vitamin B-12) 1,000 mcg PO DAILY 90 days famotidine 20 mg PO DAILY fenofibrate micronized 134 mg PO DAILY isosorbide dinitrate 10 mg PO BID levothyroxine 50 mcg PO DAILY loratadine 10 mg PO DAILY metoprolol succinate ER 200 mg PO BEDTIME mirtazapine 15 mg PO QPM pravastatin 40 mg PO DAILY Tobacco use date assessed: 06/19/23 Dental Screening Dental Screen Date: 06/19/23 Did you have a dental visit in the last 12 months?: Yes Did you have a dental problem in the last 6 months where you did not have access to dental care?: No Was dental information given to patient?: Patient has dentist HPI Reschedule 6 Month f/u HPI Details Patient is a 57 year female with a history of hypertension, lipid disorder, chronic GERD, hypothyroidism, stented coronary artery, paroxysmal atrial fibrillation allergies, difficulty sleeping, and was recently treated for influenza a infection 26 of May Patient is doing very well her illness has resolved, residual cough remaining and lb of tiredness remaining. Blood pressure is stable labs were done recently reviewed Patient have appointment in August , labs need to be repeated fasting at that visit All medications from this office [facility] Medical History Afib CAD (coronary artery disease) Family History Sister PTSD (post-traumatic stress disorder) Delusional disorder Crohn's colitis Daughter Bipolar 1 disorder Father Alcohol abuse Social History Housing: House Patient Tobacco Use Status: Current everyday Tobacco user Cigarettes Per Day: 5 e-Cigarette/Vaping Use: Never Used service: No Current occupational status: employed Current occupation: [employer] Current occupational exposures/hazards: No Cognitive needs: No Hearing needs: No Vision needs: Yes Questionnaire PHQ-9 Over the last 2 weeks, how often have you been bothered by any of the following problems? 1. Little interest or pleasure in doing things: not at all 2. Feeling down, depressed, or hopeless: not at all 3. Trouble falling or staying asleep, or sleeping too much: several days 4. Feeling tired or having little energy: several days 5. Poor appetite or overeating: not at all 6. Feeling bad about yourself - or that you are a failure or have let yourself or your family down: not at all 7. Trouble concentrating on things, such as reading the newspaper or watching television: not at all 8. Moving or speaking so slowly that other people could have noticed. Or the opposite - being so fidgety or restless that you have been moving around a lot more than usual: not at all 9. Thoughts that you would be better off or of hurting yourself in some way: not at all Total score: 2 Depression Screening Interpretation: Negative Depression Screening Done: Yes 84752 - PHQ-9 Billing: Yes Source: Developed by Drs. Michael Asher, Naila Freeman, Noah Butts and colleagues, with an educational anel from [employer]. Thrive Questionnaire Date Thrive assessed: 08/27/22 I am a: Patient What is your living situation today?: I have a steady place to live Within the past 12 months, did the food you bought not last and you didn't have the money to get more?: Sometimes True Within the past 12 months, did you worry whether your food would run out before you got money to buy more?: Sometimes True Do you have trouble paying for medicines?: No Do you have trouble getting transportation to medical appointments?: No Do you have trouble paying your heating and electricity bill?: No Do you have trouble taking care of your child, family member or friend?: No Do you have trouble with day-to-day activities such as bathing, preparing meals, shopping, managing finances, etc.?: No Are you currently unemployed and looking for a job?: No Are you interested in more education?: No Please select the resources that you would like help with: None Currently or been in a relationship where the following occur: no concerns reported THRIVE Score: 2 AUDIT C Alcohol Use Questionnaire (AUDIT-C) 1. How often do you have a drink containing alcohol?: 4 or more times a week 2. How many drinks containing alcohol do you have on a typical day when you are drinking?: 3 or 4 Total Score: 5 Score Reviewed/Action Taken: Yes SADIA-7 AMB Questionnaire SADIA-7 Date SADIA - 7 assessed: 05/29/23 Feeling nervous, anxious, or on edge: 0 = Not at all Not being able to stop or control worryin = Not at all Worrying too much about different things: 0 = Not at all Trouble relaxin = Not at all Being so restless that it is hard to sit still: 0 = Not at all Becoming easily annoyed or irritable: 0 = Not at all Feeling afraid as if something awful might happen: 0 = Not at all Total SADIA-7 score (0-4 normal; 5-9 mild; 10-14 moderate; 15-21 severe): 0 Source: Developed by Drs. Michael Asher, Naila Freeman, Noah Butts and colleagues, with an educational anel from [employer]. SADIA-7 Assessment Billing SADIA-7 Assessment Tool: SADIA-7 Assessment 83442 Review of Systems Const Denies chills and Denies fever(s) ENT Denies epistaxis and Denies nasal discharge Card Denies chest pain Resp Denies chest congestion, Denies cough and Denies hemoptysis GI Denies diarrhea and Denies nausea Skin/Breast Denies rash Neuro Reports no additional complaints Psych Reports no additional complaints Endo Reports no additional complaints Physical exam (Primary Care) Vital Signs: Last Vital Signs Pulse 88 06/19/23 15:06 BP 122/74 06/19/23 15:06 Pulse Ox 98 06/19/23 15:06 Oxygen Delivery Method Room Air 06/19/23 15:06 BMI result Body Mass Index 20.6 Tobacco/Smoking Status: Tobacco use Status Tobacco use date assessed 06/19/23 06/19/23 15:08 Patient Tobacco Use Status Current everyday Tobacco 06/19/23 15:08 e-Cigarette/Vaping Use Never Used 06/19/23 15:08 PHQ-9: PHQ-9 Score PHQ-9: Total score 2 06/19/23 15:15 Depression Screening Interpretation: Negative Thrive Assessment: Date of Thrive Assessment Date Thrive assessed 08/27/22 06/19/23 15:08 Currently or been in a relationship where the following occur: no concerns reported Const General: cooperative, comfortable and no acute distress Orientation/consciousness: patient oriented x3 HENMT Head: Yes normocephalic Eyes General: appearance normal, both eyes and all related structures Neck Neck: Yes supple Resp Effort & Inspection: normal respiratory effort, no cough and no stridor Cardio Rhythm: regular rhythm Heart sounds: S1 normal heart sound present and S2 normal heart sound present Skin General skin exam: turgor normal Neuro General: patient oriented x3, tone normal and moves all extremities Extrem Right lower extremity: no edema Left lower extremity: no edema Assessment and Plan Assessment & Plan (1) Other specified hypothyroidism: Code(s): E03.8 - Other specified hypothyroidism (2) Difficulty sleeping: Code(s): G47.9 - Sleep disorder, unspecified (3) Lipid disorder: Code(s): E78.9 - Disorder of lipoprotein metabolism, unspecified (4) Environmental allergies: Code(s): Z91.09 - Other allergy status, other than to drugs and biological substances (5) Chronic GERD: Code(s): K21.9 - Gastro-esophageal reflux disease without esophagitis (6) Nephropathy: Code(s): N28.9 - Disorder of kidney and ureter, unspecified (7) Stented coronary artery: Code(s): Z95.5 - Presence of coronary angioplasty implant and graft (8) 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 Blood pressure is stable labs were done recently reviewed Patient was found to be GLENNA positive, she had a visit with the rheumatology Patient says that she has 1 more visit for further evaluation and then she was stopped as she is not symptomatic because of that. Patient have appointment in August , labs need to be repeated fasting at that visit All medications from this office Orders: Orders Complete Blood Count Auto Diff 2 Months E03.8 - Other specified hypothyroidism, E78.9 - Disorder of lipoprotein metabolism, unspecified, G47.9 - Sleep disorder, unspecified, K21.9 - Gastro-esophageal reflux disease without esophagitis, N28.9 - Disorder of kidney and ureter, unspecified, R76.8 - Other specified abnormal immunological findings in serum, Z91.09 - Other allergy status, other than to drugs and biological substances, Z92.29 - Personal history of other drug therapy, Z95.5 - Presence of coronary angioplasty implant and graft Vitamin D 25-OH (D2 and D3) 2 Months E03.8 - Other specified hypothyroidism, E78.9 - Disorder of lipoprotein metabolism, unspecified, G47.9 - Sleep disorder, unspecified, K21.9 - Gastro-esophageal reflux disease without esophagitis, N28.9 - Disorder of kidney and ureter, unspecified, R76.8 - Other specified abnormal immunological findings in serum, Z91.09 - Other allergy status, other than to drugs and biological substances, Z92.29 - Personal history of other drug therapy, Z95.5 - Presence of coronary angioplasty implant and graft Comprehensive Bowman. Panel Fast 2 Months E03.8 - Other specified hypothyroidism, E78.9 - Disorder of lipoprotein metabolism, unspecified, G47.9 - Sleep disorder, unspecified, K21.9 - Gastro-esophageal reflux disease without esophagitis, N28.9 - Disorder of kidney and ureter, unspecified, R76.8 - Other specified abnormal immunological findings in serum, Z91.09 - Other allergy status, other than to drugs and biological substances, Z92.29 - Personal history of other drug therapy, Z95.5 - Presence of coronary angioplasty implant and graft Lipid Panel 2 Months E03.8 - Other specified hypothyroidism, E78.9 - Disorder of lipoprotein metabolism, unspecified, G47.9 - Sleep disorder, unspecified, K21.9 - Gastro-esophageal reflux disease without esophagitis, N28.9 - Disorder of kidney and ureter, unspecified, R76.8 - Other specified abnormal immunological findings in serum, Z91.09 - Other allergy status, other than to drugs and biological substances, Z92.29 - Personal history of other drug therapy, Z95.5 - Presence of coronary angioplasty implant and graft TSH reflex Free T4 2 Months E03.8 - Other specified hypothyroidism, E78.9 - Disorder of lipoprotein metabolism, unspecified, G47.9 - Sleep disorder, unspecified, K21.9 - Gastro-esophageal reflux disease without esophagitis, N28.9 - Disorder of kidney and ureter, unspecified, R76.8 - Other specified abnormal immunological findings in serum, Z91.09 - Other allergy status, other than to drugs and biological substances, Z92.29 - Personal history of other drug therapy, Z95.5 - Presence of coronary angioplasty implant and graft Vitamin B12 2 Months E03.8 - Other specified hypothyroidism, E78.9 - Disorder of lipoprotein metabolism, unspecified, G47.9 - Sleep disorder, unspecified, K21.9 - Gastro-esophageal reflux disease without esophagitis, N28.9 - Disorder of kidney and ureter, unspecified, R76.8 - Other specified abnormal immunological findings in serum, Z91.09 - Other allergy status, other than to drugs and biological substances, Z92.29 - Personal history of other drug therapy, Z95.5 - Presence of coronary angioplasty implant and graft Coding Level of Care Code Est Pt Level 4 (37296) Diagnoses Other specified hypothyroidism E03.8 Difficulty sleeping G47.9 Lipid disorder E78.9 Environmental allergies Z91.09 Chronic GERD K21.9 Nephropathy N28.9 Stented coronary artery Z95.5 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
== END 2023-06-19 16:22 | disposition home or self-care (01) ==
PROVIDERS: PCP Internal Medicine; Visit Provider Internal Medicine
DX: E03.8 Other specified hypothyroidism (principal); G47.9 Sleep disorder, unspecified; E78.9 Disorder of lipoprotein metabolism, unspecified; Z91.09 Other allergy status, other than to drugs and biological substances; K21.9 Gastro-esophageal reflux disease without esophagitis; N28.9 Disorder of kidney and ureter, unspecified; Z95.5 Presence of coronary angioplasty implant and graft; Z92.29 Personal history of other drug therapy; R76.8 Other specified abnormal immunological findings in serum
CPT/HCPCS: 99214

== ENCOUNTER 2023-07-30 10:04 | Day surgery (SDC) | payer OTHER, SELFPAY ==
[2023-07-30 10:14] VITALS: BMI 21.1
[2023-07-30 10:23] VITALS: BP 131/75; PULSE 92; RESP 16; TEMP 36.8; O2SAT 96
--- NOTE | 2023-07-30 11:35 | P.OP_ITS ---
Operative Note Operative Note Date of Service: 07/30/23 Narrative: Operative Note Preop diagnosis: 1. Left index finger bony mass Postop diagnosis: same Procedure: 1. Left index finger mass excision, deep Surgeon: Ronit Anderson MD Anesthesia: digital block using 1% lidocaine with epinephrine Findings: A rubbery somewhat spherical soft tissue mass that measured perhaps 5-6 mm in diameter was removed from the ulnar aspect of the left index finger D IP joint EBL: Less than 5 mL Tourniquet time: None Specimens: Left index finger bony mass Complications: None Disposition: Brought to recovery room in stable condition Plan: Follow-up for 7-10 days for wound check and suture removal and to check pathology Indications: The patient is 57 years old, with left index finger bony mass along the ulnar aspect of the D IP joint. . The risks and benefits of operative treatment including but not limited to risk of damage to blood vessels, nerves, tendons, infection, persistent pain, persistent symptoms, joint instability, recurrence or possible need for additional surgery were discussed with the patient and the patient wishes to proceed with surgery. Procedure: Once consent was obtained a digital block was performed in the preop area using a combination of 1% lidocaine with epinephrine. The patient was then brought back to the operating suite and placed on the operative table in supine position. A tourniquet was applied to the proximal aspect of the left upper extremity and the limb was prepped and draped in a standard surgical fashion. Once assured that we had a good block, I made a longitudinal midlateral incision centered over the mass over the ulnar aspect of the left index finger D IP joint. The incision was made through the skin the subcutaneous tissues. I then carefully dissected down to the level of the presumed bony mass with iris scissors. What we found was a rather rubbery light yellow soft tissue mass that measured perhaps 6 mm in diameter. It was somewhat spherical, and I was able to dissect it free from the surrounding tissues, and from the ulnar aspect of the left index finger D IP joint with both iris scissors and a [place] elevator. It was removed and placed on the back table to be sent for hist opathology. Once satisfied with our mass excision the wound was copiously irrigated with normal saline and hemostasis was obtained with a brief period of local pressure. The D IP joint was noted to be stable on exam. The skin edges were reapproximated with some 5.0 nylon suture material and a sterile dressing was applied. The patient appears to have tolerated the procedure well and with no complications. All digits were well vascularized at the conclusion of the case.
--- NOTE | 2023-07-30 11:35 | MHC.SHP ---
Pre-Procedural Eval Section A - 24 Hr Update-Section A only Date of Service: 07/30/23 The patient is an INPATIENT: No Changes since office visit: No Cold of Flu in the past 2 weeks, No New Medical Problems, No Changes in Medication and No Patient answered all questions The patient has been examined within 24 hours of the surgical procedure. The History & Physical has been completed within 30 days and I have reviewed it.: Yes Section B - Complete if H&P > 30 days Chief Complaint: Heberden's nodes (with arthropathy) Allergies: Allergies Allergy/AdvReac Type Severity Reaction Status Date / Time seafood AdvReac Severe Anaphylaxis Verified 06/19/23 15:06 Plan I have reviewed the history and physical and performed a pertinent physical examination on my patient. No changes have occurred unless specified. Time Spent With Patient Time: Total time managing care of this patient today ____ minutes.
[2023-07-30 13:06] VITALS: BP 124/82; PULSE 77; RESP 18; O2SAT 95
== END 2023-07-30 13:10 | disposition home or self-care (01) ==
PROVIDERS: PCP Internal Medicine; Visit Provider Orthopaedic Surgery
PROC: (CPT 26115; principal; 2023-07-30 11:20)
DX: M15.1 Heberden's nodes (with arthropathy) (principal); I48.91 Unspecified atrial fibrillation; I25.118 Atherosclerotic heart disease of native coronary artery with other forms of angina pectoris; I25.10 Atherosclerotic heart disease of native coronary artery without angina pectoris; Z95.5 Presence of coronary angioplasty implant and graft; Z79.01 Long term (current) use of anticoagulants
CPT/HCPCS: 26115; 88307; J0171

== ENCOUNTER → 2023-07-30 10:04 | Outpatient (BNV) | payer OTHER, SELFPAY | PROVIDERS: PCP Internal Medicine; Visit Provider Orthopaedic Surgery | DX: R22.32 Localized swelling, mass and lump, left upper limb (principal) | CPT/HCPCS: 26111 ==

== ENCOUNTER 2023-08-12 09:22 | Outpatient (REF) | payer OTHER, SELFPAY ==
--- NOTE | ~2023-08-12 | XR_ITS ---
EXAMINATION: XR HAND, LEFT CLINICAL INFORMATION: Pain in left hand, distal second digit. COMPARISON: None available. TECHNIQUE: PA, lateral, and oblique views of the left hand. FINDINGS: The bones are diffusely demineralized. Mild degenerative changes in the first carpometacarpal joint with joint space narrowing and hypertrophic change. Radiopaque marker placed by the technologist to indicate area of concern indicated by the patient adjacent to the distal aspect of the second digit. Mild degenerative changes in the IP joints of the second digit. Punctate calcific/ossific focus in the soft tissues at the ventral aspect of the second proximal phalanx. Mild degenerative changes and scattered IP joints. XR/XR hand LT min 3V IMPRESSION: Mild degenerative changes in scattered joints as detailed above. Mild degenerative changes in the IP joints of the second digit. Punctate calcific/ossific focus in the soft tissues at the ventral aspect of the second proximal phalanx. Soft tissue swelling of the second digit. Recommend follow-up imaging in 10-14 days if fracture is suspected.
== END 2023-08-12 09:23 | disposition home or self-care (01) ==
LOC: HO.HOSX 09:22
PROVIDERS: Visit Provider Orthopaedic Surgery
DX: M79.642 Pain in left hand (principal); R22.32 Localized swelling, mass and lump, left upper limb
CPT/HCPCS: 73130; 99212

== ENCOUNTER 2023-08-12 13:29 | Outpatient (AMB) | payer OTHER, SELFPAY ==
[2023-08-12 13:41] VITALS: BMI 21.0
--- NOTE | 2023-08-12 13:41 | MHC.OFFVIS ---
Intake Vital Signs 08/12/23 13:41 Height 4 ft 11 in Weight 104 lb BMI 21.0 Intake Visit Reasons: PO-Lt IF Bony Mass Exc 07/30/23 Intake Note: Harman 57 yr old female presents today for her P.O visit for her left IF Bony Mass Exc 07/30/23. Sutures removed in office and steri strips applied. Allergies seafood Adverse Reaction (Severe, Verified 06/19/23 15:06) Anaphylaxis HPI PO-Lt IF Bony Mass Exc 07/30/23 HPI Details Harman is a 57 year old right hand dominant woman who returns S/P left index finger mass excision, DOS: 07/30/23. She says she is doing well but her finger continues to be sore and somewhat swollen. She says her finger feels too tight and she is unable to make a full fist. She is on Eliquis, has a hx of CAD and ETOH abuse [facility] Medical History (Updated 07/30/23 @ 10:17 by Yee Denney RN) History of open arm wound Afib CAD (coronary artery disease) Surgical History (Updated 07/30/23 @ 10:17 by Yee Denney RN) H/O tubal ligation Family History Sister PTSD (post-traumatic stress disorder) Delusional disorder Crohn's colitis Daughter Bipolar 1 disorder Father Alcohol abuse Social History Housing: House Patient Tobacco Use Status: Current everyday Tobacco user Cigarettes Per Day: 5 e-Cigarette/Vaping Use: Never Used service: No Current occupational status: employed Current occupation: [employer] Current occupational exposures/hazards: No Cognitive needs: No Hearing needs: No Vision needs: Yes Review of Systems Const All systems reviewed & are unremarkable except as noted in HPI and below Physical Exam Vital Signs: BMI result Body Mass Index 21.0 Const General: no acute distress and alert Orientation/consciousness: patient oriented x3 Neuro General: patient oriented x3 Extrem Other: The patient was alert oriented and in no acute distress The incision is healing well with no erythema drainage or evidence of infection. Sutures removed and Steri-Strips applied Initially she was hesitant to bring her index finger to make a fist We worked on ROM exercises today in clinic, and before leaving clinic she could make a fully closed fist and extend all her digits No locking or catching Sensation is intact Cap refill is brisk Pathology report: 07/30/23 Diagnosis Soft tissue, left index finger mass, excision: Dense fibrous tissue with coarse dystrophic calcifications and associated inflammatory response; negative for malignancy. Comment: The findings are non-specific. The differential includes a joint loose body, calcinosis cutis and other chronic irritation/inflammatory processes. No features of malignancy are seen Radiographs: 3 views of the left index finger were taken and viewed by me today in clinic. They show no fractures or dislocations. 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 transplanted heart: [place] heart Qualified Code(s): I25.118 - Atherosclerotic heart disease of [place] coronary artery with other forms of angina pectoris (4) Heberden's nodes of left hand: Code(s): M15.1 - Heberden's nodes (with arthropathy) Plan Assessment & Plan: 1. Left index finger DIP joint mass, S/P excision DOS: 07/30/23 Possible calcification and/or fibrous tissue, not malignant See Pathology report from 07/30/23 The patient appears to be doing well post-operatively I educated her about the post-operative course I discussed activity modifications, she is to lift nothing heavier than a cellphone for the next two weeks She will perform gentle ROM exercises at home She should avoid any underwater activities for the next 5 days She should gently massage about the incision site to reduce the risk of hypersensitivity She can follow up prn Scribed for Ronit Anderson MD by Mikey Pham, medical front desk coordinator, on 08/12/23 at 2:20 PM, EST. 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 transplanted heart: [place] heart Heberden's nodes of left hand M15.1
== END 2023-08-12 14:33 | disposition home or self-care (01) ==
PROVIDERS: PCP Internal Medicine; Visit Provider Orthopaedic Surgery
DX: R22.32 Localized swelling, mass and lump, left upper limb (principal); Z92.29 Personal history of other drug therapy; I25.118 Atherosclerotic heart disease of native coronary artery with other forms of angina pectoris; M15.1 Heberden's nodes (with arthropathy)
CPT/HCPCS: 99024

== ENCOUNTER 2023-08-28 12:48 | Outpatient (AMB) | payer OTHER, SELFPAY ==
--- NOTE | 2023-08-28 12:51 | A.OFFPC_ITS ---
Vital Signs 08/28/23 12:52 Height 4 ft 11 in Weight 101 lb BMI 20.4 BP 122/74 Blood Pressure Location Rt brachial Position Sitting Pulse 80 Pulse Source Pulse Oximeter Pulse Oximetry (%) 98 Oxygen Delivery Method Room Air Intake Visit Reasons: 9 month follow up Allergies seafood Adverse Reaction (Severe, Verified 08/28/23 12:54) Anaphylaxis Medication List - Last Reconciled 08/28/23 by Geraldo Rajan MD amlodipine 5 mg PO QPM apixaban (Eliquis) 5 mg PO BID cholecalciferol (vitamin D3) 125 mcg PO DAILY conjugated estrogens (Premarin) 0.625 mg vaginal DAILY cyanocobalamin (vitamin B-12) 1,000 mcg PO DAILY 90 days famotidine 20 mg PO DAILY fenofibrate micronized 134 mg PO DAILY isosorbide dinitrate 10 mg PO BID levothyroxine 50 mcg PO DAILY loratadine 10 mg PO DAILY metoprolol succinate ER 200 mg PO BEDTIME mirtazapine 15 mg PO QPM pravastatin 40 mg PO DAILY Tobacco use date assessed: 08/28/23 Dental Screening Dental Screen Date: 08/28/23 Did you have a dental visit in the last 12 months?: Yes Did you have a dental problem in the last 6 months where you did not have access to dental care?: No Was dental information given to patient?: Patient has dentist HPI 9 month follow up HPI Details Patient is a 58 year female, with a history of hypertension, lipid disorder, chronic GERD, hypothyroidism, stented coronary artery, paroxysmal atrial fibrillation, long-term use of blood thinners nephropathy allergies, difficulty sleeping, B12 deficiency Vaginal dryness Patient is in her usual state of health She was supposed to have labs done before this visit, patient forgot and will do that tomorrow Blood pressure is stable Medication list reviewed, no side effects Patient was found to be GLENNA positive, evaluated by rheumatology However she is asymptomatic so she stopped going Follow-up 3 months All meds through this office [facility] Medical History History of open arm wound Afib CAD (coronary artery disease) Surgical History H/O tubal ligation Family History Sister PTSD (post-traumatic stress disorder) Delusional disorder Crohn's colitis Daughter Bipolar 1 disorder Father Alcohol abuse Social History Housing: House Patient Tobacco Use Status: Current everyday Tobacco user Cigarettes Per Day: 5 e-Cigarette/Vaping Use: Never Used service: No Current occupational status: employed Current occupation: [employer] Current occupational exposures/hazards: No Cognitive needs: No Hearing needs: No Vision needs: Yes Questionnaire PHQ-9 Over the last 2 weeks, how often have you been bothered by any of the following problems? 1. Little interest or pleasure in doing things: not at all 2. Feeling down, depressed, or hopeless: not at all 3. Trouble falling or staying asleep, or sleeping too much: several days 4. Feeling tired or having little energy: not at all 5. Poor appetite or overeating: several days 6. Feeling bad about yourself - or that you are a failure or have let yourself or your family down: not at all 7. Trouble concentrating on things, such as reading the newspaper or watching television: not at all 8. Moving or speaking so slowly that other people could have noticed. Or the opposite - being so fidgety or restless that you have been moving around a lot more than usual: not at all 9. Thoughts that you would be better off or of hurting yourself in some way: not at all Total score: 2 Depression Screening Interpretation: Negative Depression Screening Done: Yes 98401 - PHQ-9 Billing: Yes Source: Developed by Drs. Michael Asher, Naila Freeman, Noah Butts and colleagues, with an educational anel from [employer]. Thrive Questionnaire Date Thrive assessed: 08/27/22 I am a: Patient What is your living situation today?: I have a steady place to live Within the past 12 months, did the food you bought not last and you didn't have the money to get more?: Sometimes True Within the past 12 months, did you worry whether your food would run out before you got money to buy more?: Sometimes True Do you have trouble paying for medicines?: No Do you have trouble getting transportation to medical appointments?: No Do you have trouble paying your heating and electricity bill?: No Do you have trouble taking care of your child, family member or friend?: No Do you have trouble with day-to-day activities such as bathing, preparing meals, shopping, managing finances, etc.?: No Are you currently unemployed and looking for a job?: No Are you interested in more education?: No Please select the resources that you would like help with: None Currently or been in a relationship where the following occur: no concerns reported THRIVE Score: 2 AUDIT C Alcohol Use Questionnaire (AUDIT-C) 1. How often do you have a drink containing alcohol?: 4 or more times a week 2. How many drinks containing alcohol do you have on a typical day when you are drinking?: 3 or 4 3. How often do you have six or more drinks on one occasion?: Less than monthly Total Score: 6 Score Reviewed/Action Taken: Yes SADIA-7 AMB Questionnaire SADIA-7 Date SADIA - 7 assessed: 08/28/23 Feeling nervous, anxious, or on edge: 1 = Several days Not being able to stop or control worryin = Not at all Worrying too much about different things: 0 = Not at all Trouble relaxin = Not at all Being so restless that it is hard to sit still: 0 = Not at all Becoming easily annoyed or irritable: 1 = Several days Feeling afraid as if something awful might happen: 0 = Not at all Total SADIA-7 score (0-4 normal; 5-9 mild; 10-14 moderate; 15-21 severe): 2 Source: Developed by Drs. Michael Asher, Naila Freeman, Noah Butts and colleagues, with an educational anel from [employer]. SADIA-7 Assessment Billing SADIA-7 Assessment Tool: SADIA-7 Assessment 92067 Review of Systems Const Denies chills and Denies fever(s) ENT Denies epistaxis and Denies nasal discharge Card Denies chest pain Resp Denies chest congestion, Denies cough and Denies hemoptysis GI Denies diarrhea and Denies nausea Skin/Breast Denies rash Neuro Reports no additional complaints Psych Reports no additional complaints Endo Reports no additional complaints Physical exam (Primary Care) Vital Signs: Last Vital Signs Pulse 80 08/28/23 12:52 BP 122/74 08/28/23 12:52 Pulse Ox 98 08/28/23 12:52 Oxygen Delivery Method Room Air 08/28/23 12:52 BMI result Body Mass Index 20.4 Tobacco/Smoking Status: Tobacco use Status Tobacco use date assessed 08/28/23 08/28/23 12:57 Patient Tobacco Use Status Current everyday Tobacco 08/28/23 12:57 e-Cigarette/Vaping Use Never Used 08/28/23 12:57 PHQ-9: PHQ-9 Score PHQ-9: Total score 2 08/28/23 13:00 Depression Screening Interpretation: Negative Thrive Assessment: Date of Thrive Assessment Date Thrive assessed 08/27/22 08/28/23 12:57 Currently or been in a relationship where the following occur: no concerns reported Const General: cooperative, comfortable and no acute distress Orientation/consciousness: patient oriented x3 HENMT Head: Yes normocephalic Eyes General: appearance normal, both eyes and all related structures Neck Neck: Yes supple Resp Effort & Inspection: normal respiratory effort, no cough and no stridor Cardio Rhythm: regular rhythm Heart sounds: S1 normal heart sound present and S2 normal heart sound present Skin General skin exam: turgor normal Neuro General: patient oriented x3, tone normal and moves all extremities Extrem Right lower extremity: no edema Left lower extremity: no edema Assessment and Plan Assessment & Plan (1) Hypertension, essential: Code(s): I10 - Essential (primary) hypertension (2) Other specified hypothyroidism: Code(s): E03.8 - Other specified hypothyroidism (3) Difficulty sleeping: Code(s): G47.9 - Sleep disorder, unspecified (4) Lipid disorder: Code(s): E78.9 - Disorder of lipoprotein metabolism, unspecified (5) Environmental allergies: Code(s): Z91.09 - Other allergy status, other than to drugs and biological substances (6) Chronic GERD: Code(s): K21.9 - Gastro-esophageal reflux disease without esophagitis (7) Nephropathy: Code(s): N28.9 - Disorder of kidney and ureter, unspecified (8) Stented coronary artery: Code(s): Z95.5 - Presence of coronary angioplasty implant and graft (9) 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: Code(s): Z92.29 - Personal history of other drug therapy (10) GLENNA positive: Code(s): R76.8 - Other specified abnormal immunological findings in serum (11) Low vitamin B12 level: Code(s): R79.89 - Other specified abnormal findings of blood chemistry (12) Vaginal dryness, menopausal: Code(s): N95.1 - Menopausal and female climacteric states Plan Patient is a 58 year female, with a history of hypertension, lipid disorder, chronic GERD, hypothyroidism, stented coronary artery, paroxysmal atrial fibrillation, long-term use of blood thinners nephropathy allergies, difficulty sleeping, B12 deficiency Vaginal dryness Patient is in her usual state of health She was supposed to have labs done before this visit, patient forgot and will do that tomorrow Blood pressure is stable Medication list reviewed, no side effects Patient was found to be GLENNA positive, evaluated by rheumatology However she is asymptomatic so she stopped going Alcoholic survey positive patient need to cut down on alcoholic beverages Follow-up 3 months All meds through this office Orders: Orders UA CC w/rflx Micro + Cult Today N18.9 - Chronic kidney disease, unspecified Medications: New amlodipine 5 mg PO QPM 90 tabs 1RF famotidine 20 mg PO DAILY 90 tabs 0RF levothyroxine 50 mcg PO DAILY 90 tabs 1RF isosorbide dinitrate 10 mg PO BID 90 tabs 1RF fenofibrate micronized 134 mg PO DAILY 90 caps 1RF Coding Level of Care Code Est Pt Level 4 (64451) Diagnoses Hypertension, essential I10 Other specified hypothyroidism E03.8 Difficulty sleeping G47.9 Lipid disorder E78.9 Environmental allergies Z91.09 Chronic GERD K21.9 Nephropathy N28.9 Stented coronary artery Z95.5 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
[2023-08-28 12:52] VITALS: BP 122/74; PULSE 80; O2SAT 98; BMI 20.4
== END 2023-08-28 13:12 | disposition home or self-care (01) ==
PROVIDERS: PCP Internal Medicine; Visit Provider Internal Medicine
DX: I10 Essential (primary) hypertension (principal); E03.8 Other specified hypothyroidism; G47.9 Sleep disorder, unspecified; F10.20 Alcohol dependence, uncomplicated; E78.9 Disorder of lipoprotein metabolism, unspecified; Z91.09 Other allergy status, other than to drugs and biological substances; K21.9 Gastro-esophageal reflux disease without esophagitis; N28.9 Disorder of kidney and ureter, unspecified; Z95.5 Presence of coronary angioplasty implant and graft; Z92.29 Personal history of other drug therapy; R76.8 Other specified abnormal immunological findings in serum; R79.89 Other specified abnormal findings of blood chemistry
CPT/HCPCS: 99214

== ENCOUNTER 2023-08-29 11:19 | Outpatient (REF) | payer OTHER, SELFPAY ==
[2023-08-29 13:32] LABS: MANUAL DIFF FLAG NO
[2023-08-29 13:35] LABS: Basophils Percent Auto 0.7 % (0-2); Eosinophils Absolute Auto 0.1 X10*3/uL (0.0-0.4); Eosinophils Percent Auto 2.8 % (0-4); Hematocrit 40.6 % (37.0-47.0); Hemoglobin 13.8 g/dl (12.0-16.0); Imm Gran Abs Auto 0.01 X10*3/uL (0.00-0.03); Imm Gran Pct Auto 0.2 % (0.0-0.4); Lymphocytes Absolute Auto 1.3 X10*3/uL (1.2-4.9); Mean Corpuscular Hemoglobin 32.4 pg (27.0-33.0); Mean Corpuscular Volume 95.3 fL (80.0-98.0); Mean Platelet Volume 10.4 fL (9.4-12.3); Monocytes Absolute Auto 0.5 X10*3/uL (0.1-1.2); Monocytes Percent Auto 11.1 % (2-11); Neutrophils Absolute Auto 2.6 x10*3/uL (2.0-8.3); Neutrophils Percent Auto 56.2 % (45-73); Platelet Count 184 X10*3/uL (160-400); Red Blood Count 4.26 X10*6/uL (4.20-5.50); Red Cell Distribution Width 12.2 % (11.0-16.0); White Blood Count 4.6 X10*3/uL (4.8-10.8)
[2023-08-29 13:50] LABS: Appearance Urine Clear; Color Urine Dark Yellow; Glucose Urine UA Negative (Negative); Leukocyte Esterase Urine Moderate (2+) (Negative); Nitrite Urine Negative (Negative); PH 6.5 (5.0-9.0); UMIC TRIGGER UACC YES; Urine Blood Negative (Negative); Urine Ketones Negative (Negative); Urine Protein Negative (Neg-Trace)
[2023-08-29 13:52] LABS: Bacteria Urine None Seen (None Seen); Hyaline Casts Urine 0-2 /LPF (0-2); RBC Urine 0-2 /HPF (0-2); Squamous Epithelial Cell Urine 0-2 /HPF (0-2); UACC Culture Trigger YES; WBC Urine >50 /HPF (0-5)
[2023-08-29 13:56] LABS: Alanine Aminotransferase 17 U/L (0-31); Albumin Level 4.2 g/dL (3.5-5.0); Alkaline Phosphatase 52 U/L (39-117); Anion Gap 12 (12-20); Aspartate Amino Transferase 32 U/L (5-31); Bilirubin Total 0.6 mg/dL (0.0-1.0); Blood Urea Nitrogen 11 mg/dL (9-16); Calcium 9.9 mg/dL (8.4-10.2); Carbon Dioxide 28 mmol/L (22-29); Chloride 103 mmol/L (96-108); Cholesterol 146 mg/dL (<200); Estimated Glomerular Filt Rate > 60; Glucose Fasting 94 mg/dL (60-99); HDL Cholesterol 52 mg/dL (>40); LDL Cholesterol Calculated 74 mg/dL (<100); Potassium 4.2 mmol/L (3.3-5.1); Sodium 139 mmol/L (135-145); Total Protein 7.6 g/dL (6.5-8.0); Triglycerides 101 mg/dL (<150)
[2023-08-29 14:12] LABS: TSH reflex Free T4 3.85 uIU/mL (0.32-4.0)
[2023-08-29 14:21] LABS: Vitamin B12 881 pg/mL (200-900)
[2023-09-03 13:33] LABS: Vitamin D 25-OH, D2 <4 ng/mL; Vitamin D 25-OH, D3 68 ng/mL; Vitamin D 25-OH, Total 68 ng/mL (30-100)
== END 2023-08-29 11:20 | disposition home or self-care (01) ==
LOC: HO.HMGCLDS 11:19
PROVIDERS: PCP Internal Medicine; Visit Provider Internal Medicine
DX: R76.8 Other specified abnormal immunological findings in serum (principal); K21.9 Gastro-esophageal reflux disease without esophagitis; E03.8 Other specified hypothyroidism; N28.9 Disorder of kidney and ureter, unspecified; E78.9 Disorder of lipoprotein metabolism, unspecified; G47.9 Sleep disorder, unspecified; Z91.09 Other allergy status, other than to drugs and biological substances; Z95.5 Presence of coronary angioplasty implant and graft; Z92.29 Personal history of other drug therapy
CPT/HCPCS: 36415; 80053; 80061; 81001; 82306; 82607; 84443; 85025; 87086

== ENCOUNTER 2023-09-10 13:18 | Outpatient (AMB) | payer OTHER, SELFPAY ==
[2023-09-10 13:36] VITALS: BP 116/60; PULSE 75; O2SAT 96; BMI 20.5
--- NOTE | 2023-09-10 13:36 | MHC.OFFVIS ---
Vital Signs 09/10/23 13:36 Height 4 ft 11 in Weight 101 lb 6.602 oz BMI 20.5 BP 116/60 Blood Pressure Location Rt brachial Position Sitting Pulse 75 Pulse Source Pulse Oximeter Pulse Oximetry (%) 96 Oxygen Delivery Method Room Air Intake Visit Reasons: left DIP Intake Note: Patient last seen 06/11/23 presents today for follow up. 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 Accompanied by: Self / Same As Patient Allergies seafood Adverse Reaction (Severe, Verified 09/10/23 13:42) Anaphylaxis Medication List - Last Reconciled 09/10/23 by Vasu Rehman MD amlodipine 5 mg PO QPM apixaban (Eliquis) 5 mg PO BID cholecalciferol (vitamin D3) 125 mcg PO DAILY conjugated estrogens (Premarin) 0.625 mg vaginal DAILY cyanocobalamin (vitamin B-12) 1,000 mcg PO DAILY 90 days famotidine 20 mg PO DAILY fenofibrate micronized 134 mg PO DAILY isosorbide dinitrate 10 mg PO BID levothyroxine 50 mcg PO DAILY loratadine 10 mg PO DAILY metoprolol succinate ER 200 mg PO BEDTIME mirtazapine 15 mg PO QPM nitrofurantoin monohyd/m-cryst 100 mg (Macrobid) 100 mg PO Q12H 3 days pravastatin 40 mg PO DAILY HPI Comments Details: Patient returns for follow-up. Mass on left index DIP has been resected. Pathology was benign. She does not have any new symptoms. She has some mild swelling and sensitivity of the left index where she had the procedure done. She denies any history of skin calcification or bumps in other areas such as elbow, hands, fingers knees. Initial history: This is a 57-year-old female who presents for evaluation of positive GLENNA. Patient states that she has had a bump on the ulnar aspect of the left 2nd DIP for more than 10 years. Recently it has become somewhat enlarged. She was evaluated by physiatry and labs showed a positive GLENNA. She was also referred to hand surgeon and she is scheduled for excision towards the end of July. Patient states that she has stiffness of her fingers and toes that lasts all day every day. The bump on her left index DIP does bother her especially when her writing. She has pain the base of her right thumb, that interferes with her activities such as cooking. She states that she had an injection for that thumb in the past, it lasted 2 weeks but the injection itself was quite painful and she does not want to go through with it again. She states that she has a sister with Crohn's disease. She denies any swollen joints. Denies any weight change. Denies fevers. Of note patient had her 1st heart attack at age 30 s/p stenting. She had another heart attack at age 47. She has a total of 3 stents. She denies any skin rashes. Denies any history of DVT/PE. She denies any history of gout. No known family history of gout or kidney stones [facility] Medical History History of open arm wound Afib CAD (coronary artery disease) Surgical History H/O excision of mass H/O tubal ligation Family History Sister PTSD (post-traumatic stress disorder) Delusional disorder Crohn's colitis Daughter Bipolar 1 disorder Father Alcohol abuse Social History Housing: House Patient Tobacco Use Status: Current everyday Tobacco user Cigarettes Per Day: 5 e-Cigarette/Vaping Use: Never Used service: No Current occupational status: employed Current occupation: [employer] Current occupational exposures/hazards: No Cognitive needs: No Hearing needs: No Vision needs: Yes Review of Systems Musc Reports arthralgias and Reports joint swelling Physical Exam Vital Signs: Last Vital Signs Pulse 75 09/10/23 13:36 BP 116/60 09/10/23 13:36 Pulse Ox 96 09/10/23 13:36 Oxygen Delivery Method Room Air 09/10/23 13:36 BMI result Body Mass Index 20.5 Const General: cooperative, healthy appearing and comfortable Nutritional Appearance: thin Orientation/consciousness: patient oriented x3 Limitations: no limitations HEENT Head: Yes normocephalic and Yes atraumatic Resp Effort & Inspection: normal respiratory effort and able to speak in complete sentences GI Palpation (GI): Soft to palpation and nontender Neuro General: patient oriented x3 Extrem Other: Solid mass on ulnar aspect of left 2nd DIP has been resected. Now she has mild swelling and increased sensitivity of the finger Osteoarthritic changes of both hands no active synovitis Right 1st CMC joint tenderness Normal nailfold capillaroscopy Negative MTP tenderness bilaterally Negative MCP squeeze test Normal range of motion of elbows and shoulders without pain Not detect any areas of calcinosis cutis Proximal muscle strength 5/5 proximally all 4 limbs Results Reviewed Results Reviewed: Diagnosis Soft tissue, left index finger mass, excision: Dense fibrous tissue with coarse dystrophic calcifications and associated inflammatory response; negative for malignancy. Comment: The findings are non-specific. The differential includes a joint loose body, calcinosis cutis and other chronic irritation/inflammatory processes. No features of malignancy are seen Assessment & Plan Assessment & Plan (1) GLENNA positive: Code(s): R76.8 - Other specified abnormal immunological findings in serum Category: Medical Plan: This is a 58-year-old female who was referred for evaluation of positive GLENNA 1-160 homogeneous pattern. I do not see any obvious signs suggestive of an autoimmune rheumatic disease. Clinical picture rather consistent with generalized osteoarthritis. Her positive GLENNA may be related to her positive antithyroglobulin antibody. Discussed with patient's symptoms and signs that are suggestive autoimmune rheumatic disease. Advised patient to follow-up as needed (2) Mass of finger of left hand: Code(s): R22.32 - Localized swelling, mass and lump, left upper limb Category: Medical Plan: Calcified mass on the ulnar aspect of left index. Was resected and pathology was benign. Plan I spent 15 minutes reviewing patient's chart, evaluating patient, counseling patient and documenting in the chart Coding Level of Care Code Est Pt Level 3 (51850) Diagnoses GLENNA positive R76.8 Mass of finger of left hand R22.32
== END 2023-09-10 14:02 | disposition home or self-care (01) ==
PROVIDERS: PCP Internal Medicine; Visit Provider Student in an Organized Health Care Education/Training Program
DX: R76.8 Other specified abnormal immunological findings in serum (principal); R22.32 Localized swelling, mass and lump, left upper limb
CPT/HCPCS: 99213

== ENCOUNTER → 2023-09-10 13:18 | Outpatient (BNVA) | payer OTHER, SELFPAY | PROVIDERS: PCP Internal Medicine; Visit Provider Student in an Organized Health Care Education/Training Program | DX: R76.8 Other specified abnormal immunological findings in serum (principal); R22.32 Localized swelling, mass and lump, left upper limb | CPT/HCPCS: 99212 ==

== ENCOUNTER 2023-11-17 13:23 | Outpatient (AMB) | payer OTHER, SELFPAY ==
[2023-11-17 13:37] VITALS: BP 142/76; PULSE 76; O2SAT 94; BMI 20.4
--- NOTE | 2023-11-17 13:37 | A.OFFPC_ITS ---
Vital Signs 11/17/23 13:37 Height 4 ft 11 in Weight 101 lb BMI 20.4 BP 142/76 H Blood Pressure Location Rt brachial Position Sitting Pulse 76 Pulse Source Pulse Oximeter Pulse Oximetry (%) 94 Oxygen Delivery Method Room Air Intake Visit Reasons: 3M F/U Allergies seafood Adverse Reaction (Severe, Verified 11/17/23 13:41) Anaphylaxis Medication List - Last Reconciled 11/17/23 by Geraldo Rajan MD amlodipine 5 mg PO QPM apixaban (Eliquis) 5 mg PO BID cholecalciferol (vitamin D3) 125 mcg PO DAILY cyanocobalamin (vitamin B-12) 1,000 mcg PO DAILY 90 days famotidine 20 mg PO DAILY fenofibrate micronized 134 mg PO DAILY isosorbide dinitrate 10 mg PO BID levothyroxine 50 mcg PO DAILY loratadine 10 mg PO DAILY metoprolol succinate ER 200 mg PO BEDTIME mirtazapine 15 mg PO QPM pravastatin 40 mg PO DAILY Tobacco use date assessed: 11/17/23 Dental Screening Dental Screen Date: 11/17/23 Did you have a dental visit in the last 12 months?: No Did you have a dental problem in the last 6 months where you did not have access to dental care?: No Was dental information given to patient?: Patient has dentist HPI 3M F/U HPI Details Patient is a 58 year female, with a history of hypertension, lipid disorder, chronic GERD, hypothyroidism, stented coronary artery, paroxysmal atrial fibrillation, long-term use of blood thinners nephropathy allergies, difficulty sleeping, B12 deficiency Vaginal dryness Patient states that she need to have a urinalysis Last time she had urine incontinence, she found out she has bladder infection Last night while sleeping she had urine incontinence She does not have any fever or chills there is no abdominal pain UA ordered Medication list reviewed, no side effects Patient was found to be GLENNA positive, evaluated by rheumatology However she is asymptomatic so she stopped going Alcoholic survey positive patient need to cut down on alcoholic beverages Follow-up 3 months All meds through this office HPI Comments History of Present Illness Details This is a longitudinal relationship between me and the patient. Ongoing care provided, patient was provided time to ask questions [facility] Medical History History of open arm wound Afib CAD (coronary artery disease) Surgical History H/O excision of mass H/O tubal ligation Family History Sister PTSD (post-traumatic stress disorder) Delusional disorder Crohn's colitis Daughter Bipolar 1 disorder Father Alcohol abuse Social History Housing: House Patient Tobacco Use Status: Current everyday Tobacco user Cigarettes Per Day: 5 e-Cigarette/Vaping Use: Never Used service: No Current occupational status: employed Current occupation: [employer] Current occupational exposures/hazards: No Cognitive needs: No Hearing needs: No Vision needs: Yes Questionnaire PHQ-9 Over the last 2 weeks, how often have you been bothered by any of the following problems? 1. Little interest or pleasure in doing things: not at all 2. Feeling down, depressed, or hopeless: not at all 3. Trouble falling or staying asleep, or sleeping too much: several days 4. Feeling tired or having little energy: not at all 5. Poor appetite or overeating: several days 6. Feeling bad about yourself - or that you are a failure or have let yourself or your family down: not at all 7. Trouble concentrating on things, such as reading the newspaper or watching television: not at all 8. Moving or speaking so slowly that other people could have noticed. Or the opposite - being so fidgety or restless that you have been moving around a lot more than usual: not at all 9. Thoughts that you would be better off or of hurting yourself in some way: not at all Total score: 2 Depression Screening Interpretation: Negative Depression Screening Done: Yes [id number] - PHQ-9 Billing: Yes Source: Developed by Drs. Michael Asher, Naila Freeman, Noah Butts and colleagues, with an educational anel from [employer]. Thrive Questionnaire Date Thrive assessed: 11/17/23 I am a: Patient What is your living situation today?: I have a steady place to live Within the past 12 months, did the food you bought not last and you didn't have the money to get more?: Sometimes True Within the past 12 months, did you worry whether your food would run out before you got money to buy more?: Sometimes True Do you have trouble paying for medicines?: No Do you have trouble getting transportation to medical appointments?: No Do you have trouble paying your heating and electricity bill?: No Do you have trouble taking care of your child, family member or friend?: No Do you have trouble with day-to-day activities such as bathing, preparing meals, shopping, managing finances, etc.?: No Are you currently unemployed and looking for a job?: No Are you interested in more education?: No Please select the resources that you would like help with: None Currently or been in a relationship where the following occur: No concerns reported THRIVE Score: 2 AUDIT C Alcohol Use Questionnaire (AUDIT-C) 1. How often do you have a drink containing alcohol?: 4 or more times a week 2. How many drinks containing alcohol do you have on a typical day when you are drinking?: 3 or 4 3. How often do you have six or more drinks on one occasion?: Less than monthly Total Score: 6 Score Reviewed/Action Taken: Yes SADIA-7 AMB Questionnaire SADIA-7 Date SADIA - 7 assessed: 11/17/23 Feeling nervous, anxious, or on edge: 1 = Several days Not being able to stop or control worryin = Not at all Worrying too much about different things: 0 = Not at all Trouble relaxin = Not at all Being so restless that it is hard to sit still: 0 = Not at all Becoming easily annoyed or irritable: 1 = Several days Feeling afraid as if something awful might happen: 0 = Not at all Total SADIA-7 score (0-4 normal; 5-9 mild; 10-14 moderate; 15-21 severe): 2 Source: Developed by Drs. Michael Asher, Naila Freeman, Noah Butts and colleagues, with an educational anel from [employer]. SADIA-7 Assessment Billing SADIA-7 Assessment Tool: SADIA-7 Assessment 96275 Review of Systems Const Denies chills and Denies fever(s) ENT Denies epistaxis and Denies nasal discharge Card Denies chest pain Resp Denies chest congestion, Denies cough and Denies hemoptysis GI Denies diarrhea and Denies nausea Skin/Breast Denies rash Neuro Reports no additional complaints Psych Reports no additional complaints Endo Reports no additional complaints Physical exam (Primary Care) Vital Signs: Last Vital Signs Pulse 76 11/17/23 13:37 BP 142/76 H 11/17/23 13:37 Pulse Ox 94 11/17/23 13:37 Oxygen Delivery Method Room Air 11/17/23 13:37 BMI result Body Mass Index 20.4 Tobacco/Smoking Status: Tobacco use Status Tobacco use date assessed 11/17/23 11/17/23 13:42 Patient Tobacco Use Status Current everyday Tobacco 11/17/23 13:42 e-Cigarette/Vaping Use Never Used 11/17/23 13:42 PHQ-9: PHQ-9 Score PHQ-9: Total score 2 11/17/23 13:42 Depression Screening Interpretation: Negative Thrive Assessment: Date of Thrive Assessment Date Thrive assessed 11/17/23 11/17/23 13:42 Currently or been in a relationship where the following occur: No concerns reported Const General: cooperative, comfortable and no acute distress Orientation/consciousness: patient oriented x3 HENMT Head: Yes normocephalic Eyes General: appearance normal, both eyes and all related structures Neck Neck: Yes supple Resp Effort & Inspection: normal respiratory effort, no cough and no stridor Cardio Rhythm: regular rhythm Heart sounds: S1 normal heart sound present and S2 normal heart sound present Skin General skin exam: turgor normal Neuro General: patient oriented x3, tone normal and moves all extremities Extrem Right lower extremity: no edema Left lower extremity: no edema Assessment and Plan Assessment & Plan (1) Urine incontinence: Code(s): R32 - Unspecified urinary incontinence Qualifiers: Urinary Incontinence type: unspecified incontinence Qualified Code(s): R32 - Unspecified urinary incontinence (2) Hypertension, essential: Code(s): I10 - Essential (primary) hypertension (3) Other specified hypothyroidism: Code(s): E03.8 - Other specified hypothyroidism (4) Difficulty sleeping: Code(s): G47.9 - Sleep disorder, unspecified (5) Lipid disorder: Code(s): E78.9 - Disorder of lipoprotein metabolism, unspecified (6) Environmental allergies: Code(s): Z91.09 - Other allergy status, other than to drugs and biological substances (7) Chronic GERD: Code(s): K21.9 - Gastro-esophageal reflux disease without esophagitis (8) Nephropathy: Code(s): N28.9 - Disorder of kidney and ureter, unspecified (9) Stented coronary artery: Code(s): Z95.5 - Presence of coronary angioplasty implant and graft (10) 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: Code(s): Z92.29 - Personal history of other drug therapy (11) GLENNA positive: Code(s): R76.8 - Other specified abnormal immunological findings in serum (12) Low vitamin B12 level: Code(s): R79.89 - Other specified abnormal findings of blood chemistry (13) Vaginal dryness, menopausal: Code(s): N95.1 - Menopausal and female climacteric states Plan Patient is a 58 year female, with a history of hypertension, lipid disorder, chronic GERD, hypothyroidism, stented coronary artery, paroxysmal atrial fibrillation, long-term use of blood thinners nephropathy allergies, difficulty sleeping, B12 deficiency Vaginal dryness Patient states that she need to have a urinalysis Last time she had urine incontinence, she found out she has bladder infection Last night while sleeping she had urine incontinence She does not have any fever or chills there is no abdominal pain UA ordered Medication list reviewed, no side effects Patient was found to be GLENNA positive, evaluated by rheumatology However she is asymptomatic so she stopped going Alcoholic survey positive patient need to cut down on alcoholic beverages Follow-up 3 months All meds through this office Orders: Orders Complete Blood Count Auto Diff 3 Months E03.8 - Other specified hypothyroidism, E78.9 - Disorder of lipoprotein metabolism, unspecified, I10 - Essential (primary) hypertension, N28.9 - Disorder of kidney and ureter, unspecified TSH reflex Free T4 3 Months E03.8 - Other specified hypothyroidism, E78.9 - Disorder of lipoprotein metabolism, unspecified, I10 - Essential (primary) hypertension, N28.9 - Disorder of kidney and ureter, unspecified UA CC w/rflx Micro + Cult Today R32 - Unspecified urinary incontinence Comprehensive Met. Panel 3 Months E03.8 - Other specified hypothyroidism, E78.9 - Disorder of lipoprotein metabolism, unspecified, I10 - Essential (primary) hypertension, N28.9 - Disorder of kidney and ureter, unspecified LDL Cholesterol Direct 3 Months E03.8 - Other specified hypothyroidism, E78.9 - Disorder of lipoprotein metabolism, unspecified, I10 - Essential (primary) hypertension, N28.9 - Disorder of kidney and ureter, unspecified Coding Level of Care Code Est Pt Level 4 (37987) Complex EM visit Add On G2211 Diagnoses Urinary incontinence, unspecified type R32 Urinary Incontinence type: unspecified incontinence Hypertension, essential I10 Other specified hypothyroidism E03.8 Difficulty sleeping G47.9 Lipid disorder E78.9 Environmental allergies Z91.09 Chronic GERD K21.9 Nephropathy N28.9 Stented coronary artery Z95.5 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
== END 2023-11-17 13:56 | disposition home or self-care (01) ==
PROVIDERS: PCP Internal Medicine; Visit Provider Internal Medicine
DX: R32 Unspecified urinary incontinence (principal); I10 Essential (primary) hypertension; E03.8 Other specified hypothyroidism; G47.9 Sleep disorder, unspecified; E78.9 Disorder of lipoprotein metabolism, unspecified; Z91.09 Other allergy status, other than to drugs and biological substances; K21.9 Gastro-esophageal reflux disease without esophagitis; N28.9 Disorder of kidney and ureter, unspecified; Z95.5 Presence of coronary angioplasty implant and graft; Z92.29 Personal history of other drug therapy; R76.8 Other specified abnormal immunological findings in serum
CPT/HCPCS: 99214; G2211

== ENCOUNTER 2023-11-17 13:56 | Outpatient (REF) | payer OTHER, SELFPAY ==
[2023-11-17 16:29] LABS: Appearance Urine Turbid; Color Urine Dark Yellow; Glucose Urine UA Negative (Negative); Leukocyte Esterase Urine Negative (Negative); Nitrite Urine Negative (Negative); PH 5.5 (5.0-9.0); Specific Gravity - Urine 1.025 (1.005-1.025); Urine Blood Negative (Negative); Urine Ketones Negative (Negative); Urine Protein Trace mg/dL (Neg-Trace)
== END 2023-11-17 13:57 | disposition home or self-care (01) ==
LOC: HO.HMGCLDS 13:56
PROVIDERS: PCP Internal Medicine; Visit Provider Internal Medicine
DX: R32 Unspecified urinary incontinence (principal)
CPT/HCPCS: 81003

== ENCOUNTER 2024-01-26 20:09 | Emergency (ER) | payer OTHER, SELFPAY ==
[2024-01-26 20:12] VITALS: BP 168/107; PULSE 97; RESP 18; TEMP 36.6; O2SAT 97; BMI 19.8
--- NOTE | 2024-01-26 20:16 | ED.GENADULT ---
HPI - General Adult General Chief complaint: General Medical Stated complaint: Wrong medication taken Time Seen by Provider: 01/26/24 23:48 Source: patient Mode of arrival: ambulatory Limitations: no limitations History of Present Illness ED Provider: андрей POWERS narrative: Patient's by mistake took her a.m. medication in the p.m. at 19:00 were amlodipine 5 mg levothyroxine 50 mcg and metoprolol succinate 200 mg patient is asymptomatic as such on arrival patient's heart rate was 97 blood pressure was 168/107 repeat blood pressure after 6 hours of intake was 167/99 pulse rate 71 Related Data Home Medications ?Medication ?Instructions ?Recorded ?Confirmed cholecalciferol (vitamin D3) 125 125 mcg PO DAILY 08/27/22 11/17/23 mcg (5,000 unit) capsule loratadine 10 mg tablet 10 mg PO DAILY 08/27/22 11/17/23 Previous Rx's ?Medication ?Instructions ?Recorded amlodipine 5 mg tablet 5 mg PO QPM #90 tabs 08/28/23 fenofibrate micronized 134 mg 134 mg PO DAILY #90 caps 08/28/23 capsule levothyroxine 50 mcg tablet 50 mcg PO DAILY #90 tabs 08/28/23 cyanocobalamin (vitamin B-12) 1,000 mcg PO DAILY 90 days #90 tabs 11/25/23 1,000 mcg tablet isosorbide dinitrate 10 mg tablet 10 mg PO BID #90 tabs 12/29/23 apixaban 5 mg tablet (Eliquis) 5 mg PO BID #180 tabs 01/11/24 famotidine 20 mg tablet 20 mg PO DAILY #90 tabs 01/11/24 metoprolol succinate 200 mg 200 mg PO BEDTIME #90 tabs 01/11/24 tablet,extended release 24 hr mirtazapine 15 mg tablet 15 mg PO QPM #90 tabs 01/11/24 pravastatin 40 mg tablet 40 mg PO DAILY #90 tabs 01/11/24 Allergies Allergy/AdvReac Type Severity Reaction Status Date / Time ticlopidine [From Ticlid] Allergy Anaphylaxis Verified 01/26/24 20:15 seafood AdvReac Severe Anaphylaxis Verified 01/26/24 20:14 Review of Systems Review of Systems: Yes all other systems are reviewed and are negative PMFSH Past Medical History Medical History History of open arm wound Afib CAD (coronary artery disease) Surgical History H/O excision of mass H/O tubal ligation Family History Family History Sister PTSD (post-traumatic stress disorder) Delusional disorder Crohn's colitis Daughter Bipolar 1 disorder Father Alcohol abuse Social History Social History Housing: House Alcohol intake: current Alcohol intake frequency: 3 or more drinks per day Alcohol type: hard liquor Patient Tobacco Use Status: Current everyday Tobacco user Cigarettes Per Day: 5 Smoked in Last 30 Days: Yes e-Cigarette/Vaping Use: Never Used Use of substances other than those prescribed or required for medical reasons: No Advance Directives: No Advance Directives Information Provided: Yes Do you have a plan to hurt others: No Plan Patient : No service: No Current occupational status: employed Current occupation: [employer] Current occupational exposures/hazards: No Cognitive needs: No Hearing needs: No Vision needs: Yes Physical Exam ED Vital Signs: Vital Signs - 24 hr 01/26/24 20:12 01/26/24 22:12 01/27/24 00:07 Temperature 97.9 F 97.5 F Pulse Rate 97 94 76 Respiratory Rate 18 18 18 Blood Pressure 168/107 H 179/94 H 148/93 H Pulse Oximetry 97 96 95 Oxygen Delivery Method Room Air Room Air Room Air BMI result Body Mass Index 19.8 Appearance: Alert. Oriented X3. No acute distress. Eyes: No pallor or icterus ENT: Pharynx normal. Oral Mucosa moist Neck: Normal inspection. Neck supple. CVS: Normal heart rate and rhythm. Pulses normal. Respiratory: No respiratory distress. Equal air entry bilateral, no wheezing/rales/rhonchi Abdomen: Soft and nontender. Bowel sounds are present, no mass palpable, no CVA tenderness Skin: Skin warm and dry. Normal skin color. Normal skin turgor. Extremities: No lower extremity edema. No calf tenderness Neuro: Oriented X 3. No motor deficit. No sensory deficit.No cerebellar signs , cranial nerves II-XII intact Course Course Course Narrative: This is an RME done by NAVI Adamson: Additional HPI, ROS, PE not included below will be deferred to primary provider. 58-year-old female presents with concerns that she took the wrong medicine, she reports she took metoprolol 200 mg this morning and this evening. She reports she takes 200 mg extended release. She called poison control which advise her to come in today. She is asymptomatic at this time. Appearance: Alert.? Oriented X3.? No acute cardiopulmonary distress distress.? Head: Normocephalic, atraumatic, no step-offs or deformities Neck: Normal inspection.? Neck supple.? CVS: Pulses normal.? Respiratory: No respiratory distress.? Abdomen: Soft and nontender.? Skin: ? Normal skin color. Extremities: 5/5 strength to bilateral upper and lower extremities Neuro: Oriented X 3.? No motor deficit.? No sensory deficit. Medical Decision Making Medical Decision Making MDM Narrative: Patient is nontoxic overdose vitals are stable after 6 hours of ingestion patient advised to keep an eye on the blood pressure and heart rate event goes less than 60 and blood pressure 120/80 or feel dizzy comes to the ER Admission/Observation Consideration of admission/observation: Escalation of care including admission/observation considered Discharge Plan Discharge Clinical Impression: Accidental overdose Patient Disposition: Home, Self-Care Instructions: Adult Overdose (ED) Additional Instructions: Do not take amlodipine, metoprolol and levothyroxine in the a.m. Report to the ER if blood pressure less than 120/80 or heart rate less than 50 Prescriptions: No Action cyanocobalamin (vitamin B-12) 1,000 mcg tablet 1,000 mcg PO DAILY 90 Days Qty: 90 0RF isosorbide dinitrate 10 mg tablet 10 mg PO BID Qty: 90 1RF Eliquis 5 mg tablet 5 mg PO BID Qty: 180 0RF pravastatin 40 mg tablet 40 mg PO DAILY Qty: 90 0RF metoprolol succinate 200 mg tablet extended release 24 hr 200 mg PO BEDTIME Qty: 90 0RF famotidine 20 mg tablet 20 mg PO DAILY Qty: 90 0RF mirtazapine 15 mg tablet 15 mg PO QPM Qty: 90 0RF amlodipine 5 mg tablet 5 mg PO QPM Qty: 90 1RF levothyroxine 50 mcg tablet 50 mcg PO DAILY Qty: 90 1RF fenofibrate micronized 134 mg capsule 134 mg PO DAILY Qty: 90 1RF loratadine 10 mg tablet 10 mg PO DAILY cholecalciferol (vitamin D3) 125 mcg (5,000 unit) capsule 125 mcg PO DAILY Print Language: Italian
[2024-01-26 22:12] VITALS: BP 179/94; PULSE 94; RESP 18; O2SAT 96
--- NOTE | 2024-01-26 23:52 | PC.NURSE ---
pt from waiting room, assume care of pt at this time
[2024-01-27 00:07] VITALS: BP 148/93; PULSE 76; RESP 18; TEMP 36.4; O2SAT 95
[2024-01-27 01:09] VITALS: BP 173/102; PULSE 76; RESP 17; TEMP 36.6; O2SAT 96
--- NOTE | 2024-01-27 01:10 | PC.NURSE ---
pt vitals reviewed with provider dr. Proctor and pt is ok for discharge. pt denies pain, 97.9 oral, 76,19,96% room air. bp 173/102
[2024-01-27 01:11] VITALS: BP 173/102; PULSE 76; RESP 17; TEMP 36.6; O2SAT 96
== END 2024-01-27 01:13 | disposition home or self-care (01) ==
PROVIDERS: Emergency Provider Internal Medicine; PCP Internal Medicine
DX: T50.901A Poisoning by unspecified drugs, medicaments and biological substances, accidental (unintentional), initial encounter (principal); Y92.9 Unspecified place or not applicable; I48.91 Unspecified atrial fibrillation; I25.10 Atherosclerotic heart disease of native coronary artery without angina pectoris; Z79.899 Other long term (current) drug therapy
CPT/HCPCS: 99283; 99284

== ENCOUNTER 2024-02-01 12:51 | Outpatient (AMB) | payer OTHER, SELFPAY ==
[2024-02-01 13:11] VITALS: BP 104/70; PULSE 82; O2SAT 96; BMI 19.8
--- NOTE | 2024-02-01 13:11 | HO.NEPHOV_ITS ---
Vital Signs 02/01/24 13:11 Height 4 ft 11 in Weight 98 lb BMI 19.8 BP 104/70 Blood Pressure Location Rt brachial Position Sitting Pulse 82 Pulse Source Pulse Oximeter Pulse Oximetry (%) 96 Oxygen Delivery Method Room Air Intake Visit Reasons: January follow up/ Conf Help Desk Operator Required: No Accompanied by: Self / Same As Patient Allergies ticlopidine [From Ticlid] Allergy (Verified 02/01/24 13:13) Anaphylaxis seafood Adverse Reaction (Severe, Verified 02/01/24 13:13) Anaphylaxis HPI Comments Details: 57-year-old woman with a history of longstanding hypertension mild CKD. She has a history of coronary disease status post TX followed by 3 stents. She has a history of excessive alcohol intake and abnormal liver function tests . She has elevated serum ferritin. She is evaluated by Dr. Shaq Nuno and hemochromatosis was ruled out. She has cut down on alcohol intake but continues to drink alcohol. Drinks 4- 5 Vodka a day History of significant progress disease and waiting for a repeat carotid ultrasound the next few months Recently she was found to have hypomagnesemia and currently she is on magnesium supplementation 02/01/24 Had an episode of hematuria and suprapubic pain- in August- resolved NO UTI ? stone [facility] Medical History History of open arm wound Afib CAD (coronary artery disease) Surgical History H/O excision of mass H/O tubal ligation Family History Sister PTSD (post-traumatic stress disorder) Delusional disorder Crohn's colitis Daughter Bipolar 1 disorder Father Alcohol abuse Social History Housing: House Alcohol intake: current Alcohol intake frequency: 3 or more drinks per day Alcohol type: hard liquor Patient Tobacco Use Status: Current everyday Tobacco user Cigarettes Per Day: 5 e-Cigarette/Vaping Use: Never Used service: No Current occupational status: employed Current occupation: [employer] Current occupational exposures/hazards: No Cognitive needs: No Hearing needs: No Vision needs: Yes Physical Exam Vital Signs: Last Vital Signs Pulse 82 02/01/24 13:11 BP 104/70 02/01/24 13:11 Pulse Ox 96 02/01/24 13:11 Oxygen Delivery Method Room Air 02/01/24 13:11 BMI result Body Mass Index 19.8 Const General: comfortable; No acute distress Orientation/consciousness: patient oriented x3 Eyes General: appearance normal, both eyes and all related structures Visual Bang: normal visual bang by confrontation Neck Neck: Yes supple and Yes no JVD Resp Effort & Inspection: normal respiratory effort and respiratory effort not decreased Auscultation: rhonchi Cardio Palpation: no palpable S3 and no palpable S4 Heart sounds: no rubs GI Inspection: Yes normal to inspection Palpation (GI): Soft to palpation Percussion: Yes normal to percussion Auscultation: normal bowel sounds General: Yes no CVA tenderness Back/Spine/Pelvis Back: no CVA tenderness Skin General skin exam: no petechiae and no purpura Neuro General: patient oriented x3 and no focal motor deficits Extrem General: No clubbing and No edema Results Reviewed Nephrology Results: Hgb 13.8 g/dl (12.0-16.0) 08/29/23 WBC 4.6 X10*3/uL (4.8-10.8) L 08/29/23 Plt Count 184 X10*3/uL (160-400) 08/29/23 Sodium 139 mmol/L (135-145) 08/29/23 Potassium 4.2 mmol/L (3.3-5.1) 08/29/23 Chloride 103 mmol/L (96-108) 08/29/23 Carbon Dioxide 28 mmol/L (22-29) 08/29/23 BUN 11 mg/dL (9-16) 08/29/23 Creatinine 0.78 mg/dL (0.5-1.4) 08/29/23 Calcium 9.9 mg/dL (8.4-10.2) 08/29/23 Urine Protein Trace mg/dL (Neg-Trace) 11/17/23 Assessment & Plan Assessment & Plan (1) Serum calcium elevated: Code(s): E83.52 - Hypercalcemia Category: Medical (2) Alcoholism: Code(s): F10.20 - Alcohol dependence, uncomplicated Category: Medical Plan 57-year-old man with a history of significant vascular disease and hypertension and CKD. She had a history of KEEGAN with a peak creatinine 1.9. Currently serum creatinine is return to the baseline of 0.8 mg/dL. She probably has underlying CKD due to longstanding hypertension/vascular disease. No significant proteinuria or hematuria. Blood pressure is well controlled. No changes were made to the antihypertensive medication. Encouraged her to stay on low-sodium diet. Increase her to disc continue alcohol intake She had both hypercalcemia and [id number]. Ca and PTH were normal in August- recheck today For now will continue with magnesium supplementation Follow renal ultrasound for possible renal stone Orders: Orders US renal BI Today N18.9 - Chronic kidney disease, unspecified Basic Metabolic Panel 1 Day F10.20 - Alcohol dependence, uncomplicated Magnesium 1 Day F10.20 - Alcohol dependence, uncomplicated UA and rflx microscopic 1 Day F10.20 - Alcohol dependence, uncomplicated Phosphorus 1 Day F10.20 - Alcohol dependence, uncomplicated Coding Level of Care Code Est Pt Level 4 (92870) Diagnoses Serum calcium elevated E83.52 Alcoholism F10.20
--- NOTE | 2024-02-03 11:34 | HO.NEPHOV_ITS ---
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 She has a history of coronary disease status post MS followed by 3 stents. She has a history of excessive alcohol intake and abnormal liver function tests . She has elevated serum ferritin. She is evaluated by Dr. Shaq Nuno and hemochromatosis was ruled out. She has cut down on alcohol intake but continues to drink alcohol. History of significant progress disease and waiting for a repeat carotid ultrasound the next few months Recently she was found to have hypomagnesemia and currently she is on magnesium supplementation [facility] Medical History History of open arm wound Afib CAD (coronary artery disease) Surgical History H/O excision of mass H/O tubal ligation Family History Sister PTSD (post-traumatic stress disorder) Delusional disorder Crohn's colitis Daughter Bipolar 1 disorder Father Alcohol abuse Social History Housing: House Alcohol intake: current Alcohol intake frequency: 3 or more drinks per day Alc ohol type: hard liquor Patient Tobacco Use Status: Current everyday Tobacco user Cigarettes Per Day: 5 e-Cigarette/Vaping Use: Never Used service: No Current occupational status: employed Current occupation: [employer] Current occupational exposures/hazards: No Cognitive needs: No Hearing needs: No Vision needs: Yes Physical Exam Vital Signs: Last Vital Signs Pulse 82 02/01/24 13:11 BP 104/70 02/01/24 13:11 Pulse Ox 96 02/01/24 13:11 Oxygen Delivery Method Room Air 02/01/24 13:11 BMI result Body Mass Index 19.8 Results Reviewed Nephrology Results: Hgb 13.8 g/dl (12.0-16.0) 08/29/23 WBC 4.6 X10*3/uL (4.8-10.8) L 08/29/23 Plt Count 184 X10*3/uL (160-400) 08/29/23 Sodium 141 mmol/L (135-145) 02/02/24 Potassium 4.1 mmol/L (3.3-5.1) 02/02/24 Chloride 104 mmol/L (96-108) 02/02/24 Carbon Dioxide 28 mmol/L (22-29) 02/02/24 BUN 11 mg/dL (9-16) 02/02/24 Creatinine 0.80 mg/dL (0.5-1.4) 02/02/24 Calcium 10.1 mg/dL (8.4-10.2) 02/02/24 Phosphorus 3.7 mg/dL (2.7-4.5) 02/02/24 Urine Protein Negative mg/dL (Neg-Trace) 02/02/24 Renal US 02/15/24 Assessment & Plan Assessment & Plan (1) Serum calcium elevated: Code(s): E83.52 - Hypercalcemia Category: Medical (2) Alcoholism: Code(s): F10.20 - Alcohol dependence, uncomplicated Category: Medical (3) CKD (chronic kidney disease): Code(s): N18.9 - Chronic kidney disease, unspecified Category: Medical Qualifiers: Chronic kidney disease stage: unspecified stage Qualified Code(s): N18.9 - Chronic kidney disease, unspecified Plan 57-year-old man with a history of significant vascular disease and hypertension and CKD. She had a history of KEEGAN with a peak creatinine 1.9. Currently serum creatinine is return to the baseline of 0.8 mg/dL. She probably has underlying CKD due to longstanding hypertension/vascular disease. No significant proteinuria or hematuria. Blood pressure is well controlled. No changes were made to the antihypertensive medication. Encouraged her to stay on low-sodium diet. Increase her to disc continue alcohol intake She had both hypercalcemia and [id number]. Follow both calcium and magnesium along with intact PTH. Follow up with Rheumatology as well Orders: Orders renal BI 02/01/24 N18.9 - Chronic kidney disease, unspecified Basic Metabolic Panel 02/02/24 F10.20 - Alcohol dependence, uncomplicated Magnesium 02/02/24 F10.20 - Alcohol dependence, uncomplicated UA and rflx microscopic 02/02/24 F10.20 - Alcohol dependence, uncomplicated Phosphorus 02/02/24 F10.20 - Alcohol dependence, uncomplicated Coding Level of Care Code Est Pt Level 4 (39731) Diagnoses Serum calcium elevated E83.52 Alcoholism F10.20 Chronic kidney disease, unspecified CKD stage N18.9 Chronic kidney disease stage: unspecified stage
== END 2024-02-01 13:26 | disposition home or self-care (01) ==
PROVIDERS: PCP Internal Medicine; Visit Provider Internal Medicine Hypertension Specialist
DX: E83.52 Hypercalcemia (principal); I13.10 Hypertensive heart and chronic kidney disease without heart failure, with stage 1 through stage 4 chronic kidney disease, or unspecified chronic kidney disease; N18.30 Chronic kidney disease, stage 3 unspecified; F10.20 Alcohol dependence, uncomplicated
CPT/HCPCS: 99214

== ENCOUNTER → 2024-02-01 12:51 | Outpatient (BNVA) | payer OTHER, SELFPAY | PROVIDERS: PCP Internal Medicine; Visit Provider Internal Medicine Hypertension Specialist | DX: N18.9 Chronic kidney disease, unspecified (principal); E83.52 Hypercalcemia; F10.20 Alcohol dependence, uncomplicated | CPT/HCPCS: 99212 ==

== ENCOUNTER 2024-02-02 14:13 | Outpatient (REF) | payer OTHER, SELFPAY ==
[2024-02-02 16:29] LABS: Appearance Urine Clear; Color Urine Yellow; Glucose Urine UA Negative (Negative); Leukocyte Esterase Urine Small (1+) (Negative); Nitrite Urine Negative (Negative); PH 5.5 (5.0-9.0); UMIC TRIGGER UA YES; Urine Blood Negative (Negative); Urine Ketones Negative (Negative); Urine Protein Negative (Neg-Trace)
[2024-02-02 16:48] LABS: Anion Gap 13 (12-20); Blood Urea Nitrogen 11 mg/dL (9-16); Calcium 10.1 mg/dL (8.4-10.2); Carbon Dioxide 28 mmol/L (22-29); Chloride 104 mmol/L (96-108); Estimated Glomerular Filt Rate > 60; Glucose Random 107 mg/dL (60-115); Magnesium 1.5 mg/dL (1.6-2.6); Phosphorus 3.7 mg/dL (2.7-4.5); Potassium 4.1 mmol/L (3.3-5.1); Sodium 141 mmol/L (135-145)
[2024-02-02 17:49] LABS: Bacteria Urine None Seen (None Seen); Hyaline Casts Urine 0-2 /LPF (0-2); RBC Urine 0-2 /HPF (0-2); WBC Urine 0-5 /HPF (0-5)
== END 2024-02-02 14:14 | disposition home or self-care (01) ==
LOC: HO.HMGCLDS 14:13
PROVIDERS: PCP Internal Medicine; Visit Provider Internal Medicine Hypertension Specialist
DX: F10.20 Alcohol dependence, uncomplicated (principal)
CPT/HCPCS: 36415; 80048; 81001; 81003; 83735; 84100

== ENCOUNTER 2024-02-15 10:33 | Outpatient (REF) | payer OTHER, SELFPAY ==
--- NOTE | ~2024-02-15 | US_ITS ---
EXAMINATION: US RETROPERITONEAL LIMITED (RENAL ONLY) CLINICAL INFORMATION: Chronic kidney disease, unspecified. COMPARISON: MRI abdomen 11/25/2021. Renal ultrasound 02/19/2021. TECHNIQUE: Real-time imaging of the kidneys. FINDINGS: RIGHT KIDNEY: 10.6 x 4.7 x 4.3 cm (SAG x AP x TRV). The kidney is normal in size, contour, and echogenicity. Renal cortical thickness is normal. No calculi or focal parenchymal lesions. No hydronephrosis. LEFT KIDNEY: 10.0 x 4.8 x 4.3 cm (SAG x AP x TRV). The kidney is normal in size, contour, and echogenicity. Renal cortical thickness is normal. No renal calculi or hydronephrosis. Again, there is a hypertrophic column of Shayne, consistent with renal ultrasound findings dated 02/19/2021 (), as well as the MRI abdomen dated 11/25/2021 (18:7/16). US/US renal BI IMPRESSION: Unremarkable examination. Electronically signed by: Addi Jimenez MD 03/21/2024 11:46 PM EST
== END 2024-02-15 10:34 | disposition home or self-care (01) ==
LOC: HO.HMGCX 10:33
PROVIDERS: PCP Internal Medicine; Visit Provider Internal Medicine Hypertension Specialist
DX: N18.9 Chronic kidney disease, unspecified (principal)
CPT/HCPCS: 76775

== ENCOUNTER 2024-03-22 12:29 | Outpatient (AMB) | payer OTHER, SELFPAY ==
[2024-03-22 12:32] VITALS: BP 140/72; PULSE 86; O2SAT 95; BMI 20.2
--- NOTE | 2024-03-22 12:32 | A.OFFPC_ITS ---
Vital Signs 03/22/24 12:32 Height 4 ft 11 in Weight 100 lb BMI 20.2 BP 140/72 H Blood Pressure Location Lt brachial Position Sitting Pulse 86 Pulse Source Pulse Oximeter Pulse Oximetry (%) 95 Oxygen Delivery Method Room Air Intake Visit Reasons: 4M F/U Allergies ticlopidine [From Ticlid] Allergy (Verified 03/22/24 12:36) Anaphylaxis seafood Adverse Reaction (Severe, Verified 03/22/24 12:36) Anaphylaxis Medication List - Last Reconciled 03/22/24 by Geraldo Rajan MD amlodipine 5 mg PO QPM apixaban (Eliquis) 5 mg PO BID cholecalciferol (vitamin D3) 125 mcg PO DAILY cyanocobalamin (vitamin B-12) 1,000 mcg PO DAILY 90 days famotidine 20 mg PO DAILY fenofibrate micronized 134 mg PO DAILY isosorbide dinitrate 10 mg PO BID levothyroxine 50 mcg PO DAILY loratadine 10 mg PO DAILY metoprolol succinate ER 200 mg PO BEDTIME mirtazapine 15 mg PO QPM pravastatin 40 mg PO DAILY Tobacco use date assessed: 03/22/24 Dental Screening Dental Screen Date: 03/22/24 Did you have a dental visit in the last 12 months?: No Did you have a dental problem in the last 6 months where you did not have access to dental care?: No Was dental information given to patient?: Patient has dentist HPI 4M F/U HPI Details Patient is a 58 year female, with a history of hypertension, lipid disorder, chronic GERD, hypothyroidism, stented coronary artery, paroxysmal atrial fibrillation, long-term use of blood thinners nephropathy allergies, difficulty sleeping, B12 deficiency Vaginal dryness 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 Had renal ultrasound January of this year which was unremarkable Medication list reviewed, no side effects Patient was found to be GLENNA positive, evaluated by rheumatology However she is asymptomatic so she stopped going Continued to drink alcohol, trying to stop I have sent magnesium supplement we will check magnesium level again with next set of lab Patient is due for mammogram and bone density, order placed Blood pressure is slightly elevated today patient is blaming politics for that Follow-up 3 months [facility] Medical History History of open arm wound Afib CAD (coronary artery disease) Surgical History H/O excision of mass H/O tubal ligation Family History Sister PTSD (post-traumatic stress disorder) Delusional disorder Crohn's colitis Daughter Bipolar 1 disorder Father Alcohol abuse Social History Housing: House Alcohol intake: current Alcohol intake frequency: 3 or more drinks per day Alcohol type: hard liquor Patient Tobacco Use Status: Current everyday Tobacco user Cigarettes Per Day: 5 e-Cigarette/Vaping Use: Never Used service: No Current occupational status: employed Current occupation: [employer] Current occupational exposures/hazards: No Cognitive needs: No Hearing needs: No Vision needs: Yes Questionnaire PHQ-9 Over the last 2 weeks, how often have you been bothered by any of the following problems? 1. Little interest or pleasure in doing things: not at all 2. Feeling down, depressed, or hopeless: not at all 3. Trouble falling or staying asleep, or sleeping too much: not at all 4. Feeling tired or having little energy: not at all 5. Poor appetite or overeating: several days 6. Feeling bad about yourself - or that you are a failure or have let yourself or your family down: not at all 7. Trouble concentrating on things, such as reading the newspaper or watching television: not at all 8. Moving or speaking so slowly that other people could have noticed. Or the opposite - being so fidgety or restless that you have been moving around a lot more than usual: not at all 9. Thoughts that you would be better off or of hurting yourself in some way: not at all Total score: 1 Depression Screening Interpretation: Negative Depression Screening Done: Yes 82968 - PHQ-9 Billing: Yes Source: Developed by Drs. Michael Asher, Naila Freeman, Noah Butts and colleagues, with an educational anel from [employer]. Thrive Questionnaire Date Thrive assessed: 03/16/24 I am a: Patient What is your living situation today?: I have a steady place to live Within the past 12 months, did the food you bought not last and you didn't have the money to get more?: I choose not to answer this question Within the past 12 months, did you worry whether your food would run out before you got money to buy more?: I choose not to answer this question Do you have trouble paying for medicines?: I choose not to answer this question Do you have trouble getting transportation to medical appointments?: No Do you have trouble paying your heating and electricity bill?: I choose not to answer this question Do you have trouble taking care of your child, family member or friend?: No Do you have trouble with day-to-day activities such as bathing, preparing meals, shopping, managing finances, etc.?: No Are you currently unemployed and looking for a job?: No Are you interested in more education?: I choose not to answer this question Please select the resources that you would like help with: None Currently or been in a relationship where the following occur: I choose not to answer THRIVE Score: 0 AUDIT C Alcohol Use Questionnaire (AUDIT-C) 1. How often do you have a drink containing alcohol?: 2-3 times a week 2. How many drinks containing alcohol do you have on a typical day when you are drinking?: 3 or 4 3. How often do you have six or more drinks on one occasion?: Less than monthly Total Score: 5 SADIA-7 AMB Questionnaire SADIA-7 Date SADIA - 7 assessed: 11/17/23 Feeling nervous, anxious, or on edge: 0 = Not at all Not being able to stop or control worryin = Not at all Worrying too much about different things: 0 = Not at all Trouble relaxin = Not at all Being so restless that it is hard to sit still: 0 = Not at all Becoming easily annoyed or irritable: 0 = Not at all Feeling afraid as if something awful might happen: 0 = Not at all Total SADIA-7 score (0-4 normal; 5-9 mild; 10-14 moderate; 15-21 severe): 0 Source: Developed by Drs. Michael Asher, Naila Freeman, Noah Butts and colleagues, with an educational anel from [employer]. Review of Systems Const Denies chills and Denies fever(s) ENT Denies epistaxis and Denies nasal discharge Card Denies chest pain Resp Denies chest congestion, Denies cough and Denies hemoptysis GI Denies diarrhea and Denies nausea Skin/Breast Denies rash Neuro Reports no additional complaints Psych Reports no additional complaints Endo Reports no additional complaints Physical exam (Primary Care) Vital Signs: Last Vital Signs Pulse 86 03/22/24 12:32 BP 140/72 H 03/22/24 12:32 Pulse Ox 95 03/22/24 12:32 Oxygen Delivery Method Room Air 03/22/24 12:32 BMI result Body Mass Index 20.2 Tobacco/Smoking Status: Tobacco use Status Tobacco use date assessed 03/22/24 03/22/24 12:34 Patient Tobacco Use Status Current everyday Tobacco 03/22/24 12:34 e-Cigarette/Vaping Use Never Used 03/22/24 12:34 PHQ-9: PHQ-9 Score PHQ-9: Total score 1 03/22/24 12:38 Depression Screening Interpretation: Negative Thrive Assessment: Date of Thrive Assessment Date Thrive assessed 03/16/24 03/22/24 12:34 Currently or been in a relationship where the following occur: I choose not to answer Const General: cooperative, comfortable and no acute distress Orientation/consciousness: patient oriented x3 HENMT Head: Yes normocephalic Eyes General: appearance normal, both eyes and all related structures Neck Neck: Yes supple Resp Effort & Inspection: normal respiratory effort, no cough and no stridor Cardio Rhythm: regular rhythm Heart sounds: S1 normal heart sound present and S2 normal heart sound present Skin General skin exam: turgor normal Neuro General: patient oriented x3, tone normal and moves all extremities Extrem Right lower extremity: no edema Left lower extremity: no edema Coding Level of Care Code Est Pt Level 4 (76778) Complex EM visit Add On G2211 Diagnoses Hypertension, essential I10 Chronic kidney disease, unspecified CKD stage N18.9 Chronic kidney disease stage: unspecified stage LFT elevation R79.89 GLENNA positive R76.8 Low vitamin B12 level R79.89 Low magnesium level R79.0 Alcoholism F10.20 Hx of correction use of blood thinners Z92.29 Chronic GERD K21.9 Lipid disorder E78.9 Difficulty sleeping G47.9 Other specified hypothyroidism E03.8 Menopause Z78.0 Assessment & Plan Assessment & Plan (1) Hypertension, essential: Code(s): I10 - Essential (primary) hypertension Category: Medical (2) CKD (chronic kidney disease): Code(s): N18.9 - Chronic kidney disease, unspecified Category: Medical Qualifiers: Chronic kidney disease stage: unspecified stage Qualified Code(s): N18.9 - Chronic kidney disease, unspecified (3) LFT elevation: Code(s): R79.89 - Other specified abnormal findings of blood chemistry Category: Medical (4) GLENNA positive: Code(s): R76.8 - Other specified abnormal immunological findings in serum Category: Medical (5) Low vitamin B12 level: Code(s): R79.89 - Other specified abnormal findings of blood chemistry Category: Medical (6) Low magnesium level: Code(s): R79.0 - Abnormal level of blood mineral Category: Medical (7) Alcoholism: Code(s): F10.20 - Alcohol dependence, uncomplicated Category: Medical (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: Code(s): Z92.29 - Personal history of other drug therapy Category: Medical (9) Chronic GERD: Code(s): K21.9 - Gastro-esophageal reflux disease without esophagitis Category: Medical (10) Lipid disorder: Code(s): E78.9 - Disorder of lipoprotein metabolism, unspecified Category: Medical (11) Difficulty sleeping: Code(s): G47.9 - Sleep disorder, unspecified Category: Medical (12) Other specified hypothyroidism: Code(s): E03.8 - Other specified hypothyroidism Category: Medical (13) Menopause: Code(s): Z78.0 - Asymptomatic menopausal state Category: Medical Plan Patient is a 58 year female, with a history of hypertension, lipid disorder, chronic GERD, hypothyroidism, stented coronary artery, paroxysmal atrial fibrillation, long-term use of blood thinners nephropathy allergies, difficulty sleeping, B12 deficiency Vaginal dryness 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 Had renal ultrasound January of this year which was unremarkable Medication list reviewed, no side effects Patient was found to be GLENNA positive, evaluated by rheumatology However she is asymptomatic so she stopped going Continued to drink alcohol, trying to stop I have sent magnesium supplement we will check magnesium level again with next set of lab Patient is due for mammogram and bone density, order placed Blood pressure is slightly elevated today patient is blaming politics for that Follow-up 3 months Orders: Orders MM tomosynthesis screening BI Today Z12.31 - Encounter for screening mammogram for malignant neoplasm of breast, Z78.0 - Asymptomatic menopausal state Complete Blood Count Auto Diff 3 Months E03.8 - Other specified hypothyroidism, E78.9 - Disorder of lipoprotein metabolism, unspecified, F10.20 - Alcohol dependence, uncomplicated, K21.9 - Gastro-esophageal reflux disease without esophagitis, N18.9 - Chronic kidney disease, unspecified, R79.0 - Abnormal level of blood mineral, R79.89 - Other specified abnormal findings of blood chemistry Comprehensive Met. Panel 3 Months E03.8 - Other specified hypothyroidism, E78.9 - Disorder of lipoprotein metabolism, unspecified, F10.20 - Alcohol dependence, uncomplicated, K21.9 - Gastro-esophageal reflux disease without esophagitis, N18.9 - Chronic kidney disease, unspecified, R79.0 - Abnormal level of blood mineral, R79.89 - Other specified abnormal findings of blood chemistry Vitamin D 25-OH (D2 and D3) 3 Months E03.8 - Other specified hypothyroidism, E78.9 - Disorder of lipoprotein metabolism, unspecified, F10.20 - Alcohol dependence, uncomplicated, K21.9 - Gastro-esophageal reflux disease without esophagitis, N18.9 - Chronic kidney disease, unspecified, R79.0 - Abnormal level of blood mineral, R79.89 - Other specified abnormal findings of blood chemistry LDL Cholesterol Direct 3 Months E03.8 - Other specified hypothyroidism, E78.9 - Disorder of lipoprotein metabolism, unspecified, F10.20 - Alcohol dependence, uncomplicated, K21.9 - Gastro-esophageal reflux disease without esophagitis, N18.9 - Chronic kidney disease, unspecified, R79.0 - Abnormal level of blood mineral, R79.89 - Other specified abnormal findings of blood chemistry XR DEXA axial skeleton Today Z12.31 - Encounter for screening mammogram for malignant neoplasm of breast, Z78.0 - Asymptomatic menopausal state Magnesium 3 Months E03.8 - Other specified hypothyroidism, E78.9 - Disorder of lipoprotein metabolism, unspecified, F10.20 - Alcohol dependence, uncomplicated, K21.9 - Gastro-esophageal reflux disease without esophagitis, N18.9 - Chronic kidney disease, unspecified, R79.0 - Abnormal level of blood mineral, R79.89 - Other specified abnormal findings of blood chemistry TSH reflex Free T4 3 Months E03.8 - Other specified hypothyroidism, E78.9 - Disorder of lipoprotein metabolism, unspecified, F10.20 - Alcohol dependence, uncomplicated, K21.9 - Gastro-esophageal reflux disease without esophagitis, N18.9 - Chronic kidney disease, unspecified, R79.0 - Abnormal level of blood mineral, R79.89 - Other specified abnormal findings of blood chemistry Vitamin B12 3 Months E03.8 - Other specified hypothyroidism, E78.9 - Disorder of lipoprotein metabolism, unspecified, F10.20 - Alcohol dependence, uncomplicated, K21.9 - Gastro-esophageal reflux disease without esophagitis, N18.9 - Chronic kidney disease, unspecified, R79.0 - Abnormal level of blood mineral, R79.89 - Other specified abnormal findings of blood chemistry Medications: Refilled magnesium oxide 400 mg PO DAILY 90 days 90 caps 0RF
== END 2024-03-22 12:56 | disposition home or self-care (01) ==
LOC: HO.HMCC 12:30
PROVIDERS: PCP Internal Medicine; Visit Provider Internal Medicine
DX: I12.9 Hypertensive chronic kidney disease with stage 1 through stage 4 chronic kidney disease, or unspecified chronic kidney disease (principal); N18.9 Chronic kidney disease, unspecified; R79.89 Other specified abnormal findings of blood chemistry; F10.20 Alcohol dependence, uncomplicated; R76.8 Other specified abnormal immunological findings in serum; R79.0 Abnormal level of blood mineral; Z92.29 Personal history of other drug therapy; K21.9 Gastro-esophageal reflux disease without esophagitis; E78.9 Disorder of lipoprotein metabolism, unspecified; G47.9 Sleep disorder, unspecified; E03.8 Other specified hypothyroidism; Z78.0 Asymptomatic menopausal state

== ENCOUNTER → 2024-03-22 12:29 | Outpatient (BNVA) | payer OTHER, SELFPAY | PROVIDERS: PCP Internal Medicine; Visit Provider Internal Medicine | DX: I12.9 Hypertensive chronic kidney disease with stage 1 through stage 4 chronic kidney disease, or unspecified chronic kidney disease (principal); N18.9 Chronic kidney disease, unspecified; R79.89 Other specified abnormal findings of blood chemistry; R76.8 Other specified abnormal immunological findings in serum; R79.0 Abnormal level of blood mineral; K21.9 Gastro-esophageal reflux disease without esophagitis; E78.9 Disorder of lipoprotein metabolism, unspecified; G47.9 Sleep disorder, unspecified; E03.8 Other specified hypothyroidism; Z78.0 Asymptomatic menopausal state; Z92.29 Personal history of other drug therapy | CPT/HCPCS: 96127; 99212 ==

== ENCOUNTER 2024-07-01 12:53 | Outpatient (REF) | payer OTHER, SELFPAY ==
--- OUTSIDE RECORDS SUMMARY | 2024-07-01 13:38 | XMS_ITS | Clinical Summary ---
Author Organization [facility] Address [address] [place] [address] Phone Care Team Providers Care Strip Stamp Straightener Name Role Phone Geraldo Rajan MD Primary Care Provider [phone] Allergies Active Allergy Reactions Criticality Noted Date [...] Sigmoidoscopy 2014 Influenza Vaccine (#1) 2024 Insurance [facility] MEDICAID [facility] MEDICAID Care Teams Strip Stamp Straightener Relationship Specialty Start Date End Date Geraldo Rajan MD [address] [place] [address] PCP - General Internal Medicine 10/30/22
--- OUTSIDE RECORDS SUMMARY | 2024-07-01 13:38 | XMS_ITS | Clinical Summary ---
Author Organization [facility] Address [address] [place] [address] Phone Care Team Providers Care Ironer Or Presser Name Role Phone Gearldo Rajan MD Primary Care Provider [phone] Encounters Date Type Department Care Team Description 05/13/2024 1:20 PM EST - 05/13/2024 11:59 PM EST Hospital [facility]counter [facility] at [address] [phone] Encounter for screening mammogram for malignant neoplasm of breast Discharge Disposition: Home or Self Care 04/19/2024 1:43 PM EST - 04/19/2024 11:59 PM EST Hospital Encounter [facility] Bone Density [address] [place] [phone] Encounter for screening mammogram for malignant neoplasm [...] for biopsy. PQRI CPT II 3341F Code 77029, 23846 PQRI 225 CPT II 7025F TISSUE DENSITY: There are scattered areas of fibroglandular density. (BI-RADS category B) IMPRESSION: Benign. BI-RADS CATEGORY: 1 - NEGATIVE RECOMMENDATION: Screening bilateral mammogram is recommended in 1 year. Mammo Location: [facility], [address] [place] [address] -------- FINAL REPORT -------- Dictated By: Tonio Cloe Dictated Date: 05/16/2024 08:09 ET Assigned Physician: Tonio Cole Reviewed and Electronically Signed By: Tonio Cole Signed Date: 05/16/2024 08:12 ET Workstation ID: [id number] Transcribed By: Self Edit Transcribed Date: 05/16/2024 08:09 ET Narrative 05/16/2024 8:12 AM EST CLINICAL: The patient is a 58 years Female presenting for routine screening mammography. COMPARISON: Most recently 10/14/2022 and most remotely 04/30/2017. ?? TECHNIQUE: Full-field digital mammography of the breasts bilaterally consisting of tomosynthesis in MLO and CC projection is performed in the [employer] 2000-D unit. ??Computer aided detection utilizing the [...] MLO and CC projection is performed in the[employer] 2000-D unit. Computer aided detection utilizing [...] for biopsy. PQRI CPT II 3341F Code 75685, 36998 PQRI 225 CPT II 7025F TISSUE DENSITY: There are scattered areas of fibroglandular density.(BI-RADS category B) IMPRESSION: Benign. BI-RADS CATEGORY: 1 - NEGATIVE RECOMMENDATION: Screening bilateral mammogram is recommended in 1 year. Mammo Location: [facility], [facility], [address] [place] [address] -------- FINAL REPORT -------- Dictated By: Tonio Cole Dictated Date: 05/16/2024 08:09 ET Assigned Physician: Tonio Cole Reviewed and Electronically Signed By: Tonio Cole Signed Date: 05/16/2024 08:12 ET Workstation ID: [id number] Transcribed By: Self Edit Transcribed Date: 05/16/2024 08:09 ET us Geraldo Rajan MD IMG BI PROCEDURES Final Result * BD Bone Density DXA Axial Skeleton (04/19/2024 2:13 PM EST) Anatomical Region Laterality Modality Wrist, Hip, L-spine Bone Densito metry 04/19/2024 4:10 PM EST Impressions 04/19/2024 4:11 PM EST Osteopenia. ? [id number] -------- FINAL REPORT -------- Dictated By: Bisi Wilson Dictated Date: 04/19/2024 16:10 ET Assigned Physician: Bisi Wilson Reviewed and Electronically Signed By: Bisi Wilson Signed Date: 04/19/2024 16:11 ET Workstation ID: [id number] Transcribed By: Self Edit Transcribed Date: 04/19/2024 16:10 ET Narrative 04/19/2024 4:11 PM EST History: Low estrogen state due to menopause. Current smoker. Comparison: 05/31/21 Findings: Bone densitometry is performed utilizing dual energy x-ray absorptiometry (DXA) in the [employer] unit. The lumbar spine and proximal [...] utilizing dual energy x-ray absorptiometry(DXA) in the [employer] unit. The lumbar spine and proximal femora [...] Osteoporotic 9.5percent Hip 2.3 percent. IMPRESSION: Osteopenia. [id number] -------- FINAL REPORT -------- Dictated By: Bisi Wilson Dictated Date: 04/19/2024 16:10 ET Assigned Physician: Bisi Wilson Reviewed and Electronically Signed By: Bisi Wilson Signed Date: 04/19/2024 16:11 ET Workstation ID: [id number] Transcribed By: Self Edit Transcribed Date: 04/19/2024 16:10 ET Geraldo Rajan MD IMG DXA PROCEDURES Final Result from Last 3 Months Insurance [facility] [place] [address] Care Teams Ironer Or Presser Relationship Specialty Start Date End Date Geraldo Rajan MD [address] [place] [address] PCP - General Internal Medicine 04/19/24
--- OUTSIDE RECORDS SUMMARY | 2024-07-01 13:38 | XMS_ITS | Clinical Summary ---
Author Organization [facility] Address [address] [place] [address] Care Team Providers Care Supervisor Winding Department Name Role Phone Mani Guillen MD Primary Care Provider [phone] Allergies Active Allergy Reactions Criticality Noted Date [...] age to complete this topic Care Teams Supervisor Winding Department Relationship Specialty Start Date End Date Mani Guillen MD [address] [place] [address] PCP - General Internal Medicine 10/30/20
[2024-07-01 16:21] LABS: MANUAL DIFF FLAG NO
[2024-07-01 16:31] LABS: Basophils Percent Auto 0.8 % (0-2); Eosinophils Absolute Auto 0.1 X10*3/uL (0.0-0.4); Eosinophils Percent Auto 2.5 % (0-4); Hemoglobin 14.1 g/dl (12.0-16.0); Imm Gran Abs Auto 0.01 X10*3/uL (0.00-0.03); Imm Gran Pct Auto 0.2 % (0.0-0.4); Lymphocytes Absolute Auto 1.5 X10*3/uL (1.2-4.9); Lymphocytes Percent Auto 32.4 % (20-40); Mean Corpuscular HGB Conc 34.4 g/dl (31.0-35.0); Mean Corpuscular Hemoglobin 33.1 pg (27.0-33.0); Mean Corpuscular Volume 96.2 fL (80.0-98.0); Mean Platelet Volume 10.5 fL (9.4-12.3); Monocytes Absolute Auto 0.5 X10*3/uL (0.1-1.2); Monocytes Percent Auto 10.5 % (2-11); Neutrophils Absolute Auto 2.5 x10*3/uL (2.0-8.3); Neutrophils Percent Auto 53.6 % (45-73); Platelet Count 196 X10*3/uL (160-400); Red Blood Count 4.26 X10*6/uL (4.20-5.50); Red Cell Distribution Width 12.2 % (11.0-16.0); White Blood Count 4.8 X10*3/uL (4.8-10.8)
[2024-07-01 16:47] LABS: Alanine Aminotransferase 23 U/L (0-31); Albumin Level 4.4 g/dL (3.5-5.0); Alkaline Phosphatase 60 U/L (39-117); Anion Gap 13 (12-20); Aspartate Amino Transferase 43 U/L (5-31); Bilirubin Total 0.5 mg/dL (0.0-1.0); Blood Urea Nitrogen 9 mg/dL (9-16); Carbon Dioxide 27 mmol/L (22-29); Chloride 103 mmol/L (96-108); Estimated Glomerular Filt Rate > 60; Glucose Random 107 mg/dL (60-115); Magnesium 1.7 mg/dL (1.6-2.6); Potassium 3.8 mmol/L (3.3-5.1); Sodium 139 mmol/L (135-145); Total Protein 7.9 g/dL (6.5-8.0)
[2024-07-01 16:56] LABS: TSH reflex Free T4 1.64 uIU/mL (0.32-4.0)
[2024-07-01 17:07] LABS: Vitamin B12 946 pg/mL (200-900)
[2024-07-02 12:57] LABS: LDL Cholesterol Direct 69 mg/dL (<100)
[2024-07-06 01:14] LABS: Vitamin D 25-OH, D2 <4 ng/mL; Vitamin D 25-OH, D3 68 ng/mL; Vitamin D 25-OH, Total 68 ng/mL (30-100)
== END 2024-07-01 12:54 | disposition home or self-care (01) ==
LOC: HO.HMGCLDS 12:53
PROVIDERS: PCP Internal Medicine; Visit Provider Internal Medicine
DX: E03.8 Other specified hypothyroidism (principal); E78.9 Disorder of lipoprotein metabolism, unspecified; K21.9 Gastro-esophageal reflux disease without esophagitis; F10.20 Alcohol dependence, uncomplicated; R79.0 Abnormal level of blood mineral; R79.89 Other specified abnormal findings of blood chemistry; I12.9 Hypertensive chronic kidney disease with stage 1 through stage 4 chronic kidney disease, or unspecified chronic kidney disease; N18.9 Chronic kidney disease, unspecified; R76.8 Other specified abnormal immunological findings in serum; G47.9 Sleep disorder, unspecified; Z92.29 Personal history of other drug therapy
CPT/HCPCS: 36415; 80053; 82306; 82607; 83721; 83735; 84443; 85025; 99212

== ENCOUNTER 2024-07-01 12:53 | Outpatient (AMB) | payer OTHER, SELFPAY ==
[2024-07-01 13:02] VITALS: BP 136/80; PULSE 86; O2SAT 95; BMI 20.2
--- NOTE | 2024-07-01 13:02 | A.OFFPC_ITS ---
Vital Signs 07/01/24 13:02 Height 4 ft 11 in Weight 100 lb 4 oz BMI 20.2 BP 136/80 Blood Pressure Location Lt brachial Position Sitting Pulse 86 Pulse Source Pulse Oximeter Pulse Oximetry (%) 95 Oxygen Delivery Method Room Air Intake Visit Reasons: 3 months follow up Allergies ticlopidine [From Ticlid] Allergy (Verified 07/01/24 13:04) Anaphylaxis seafood Adverse Reaction (Severe, Verified 07/01/24 13:04) Anaphylaxis Medication List - Last Reconciled 07/01/24 by Geraldo Rajan MD amlodipine 5 mg PO QPM apixaban (Eliquis) 5 mg PO BID cholecalciferol (vitamin D3) 125 mcg PO DAILY cyanocobalamin (vitamin B-12) 1,000 mcg PO DAILY 90 days famotidine 20 mg PO DAILY fenofibrate micronized 134 mg PO DAILY isosorbide dinitrate 10 mg PO BID levothyroxine 50 mcg PO DAILY loratadine 10 mg PO DAILY magnesium oxide 400 mg PO DAILY 90 days metoprolol succinate ER 200 mg PO BEDTIME mirtazapine 15 mg PO QPM pravastatin 40 mg PO DAILY Tobacco use date assessed: 07/01/24 Dental Screening Dental Screen Date: 07/01/24 Did you have a dental visit in the last 12 months?: Yes Did you have a dental problem in the last 6 months where you did not have access to dental care?: No Was dental information given to patient?: Patient has dentist HPI 3 months follow up HPI Details History Patient is a 58 year female, with a history of hypertension, lipid disorder, chronic GERD, hypothyroidism, stented coronary artery, paroxysmal atrial fibrillation, long-term use of blood thinners nephropathy allergies, difficulty sleeping, B12 deficiency Vaginal dryness 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 Had renal ultrasound January of 2024 which was unremarkable Patient was found to be GLENNA positive, evaluated by rheumatology However she is asymptomatic so she stopped going Continued to drink alcohol, trying to stop She has stopped taking magnesium supplement as it was causing diarrhea we will check the level Patient was supposed to have labs before this visit but she forgot she will have them today Mammogram and bone density done at [facility] I do not have the report we will try to get that Blood pressure is stable Continued to smoke patient blame bottom for that We talked about supportive environment and if she needs any help she will get back to me Medications - Amlodipine 5 mg for Essential Hyperten deny - Eliquis (Apixaban) - Vitamin D for Vitamin D Deficiency - Vitamin B12 for Vitamin B12 Deficiency - Famotidine 20 mg for Gastroesophageal Reflux Disease - Fenofibrate for Hyperlipidemia - Levothyroxine 50 mcg for Hypothyroidis m - Loratadine (Antihistamine) - Metoprolol 200 mg at bedtime - Mirtazapine 15 mg (used for sleep diff iculties, not deemed effective by the patient) Problem List - Essential Hypertension - Vitamin D Deficiency - Vitamin B12 Deficiency - Gastroesophageal Reflux Disease (manag ed with famotidine) - Hyperlipidemia (managed with fenofibra te) - Hypothyroidism (managed with levothyro xine) - Nicotine Dependence - Vision Deficiency (likely presbyopia, difficulties with progressive lenses) [facility] (location of rece nt mammogram and bone density test) - [facility] (patient's workplace and location for optical services) Patient Instructions - Complete the pending lab work today, a s it does not require fasting. - Attempt to reduce smoking habits gradu kalyani. - Consider alternatives to progressive l enses or seek an fisher oyster for adjustment. - Schedule follow-up visit in September. - Be proactive in engaging in indoor win ter activities to address boredom. Review of Systems General: No fever no chills neurological: No headaches no dizziness ear nose throat: No sore throat no hearing difficulty no ear pain cardiovascular: No syncope, no chest pain, no palpitations gastrointestinal: No nausea vomiting or diarrhea endocrine: No polyuria polydipsia no heat intolerance genitourinary: No dysuria skin: No new complaints Physical Exam general: No acute distress HEENT: No acute findings neck: Supple respiratory system: Able to talk in full sentences, no audible wheeze no stridor cardiovascular: S1-S2 gastrointestinal: No pain extremities: No new findings [employer]GRAM[employer] REMOTE: Alert awake oriented x3 motor sensory intact skin: Normal turgor PFSH Medical History History of open arm wound Afib CAD (coronary artery disease) Surgical History H/O excision of mass H/O tubal ligation Family History Sister PTSD (post-traumatic stress disorder) Delusional disorder Crohn's colitis Daughter Bipolar 1 disorder Father Alcohol abuse Social History Housing: House Alcohol intake: current Alcohol intake frequency: 3 or more drinks per day Alcohol type: hard liquor Patient Tobacco Use Status: Current everyday Tobacco user Cigarettes Per Day: 5 e-Cigarette/Vaping Use: Never Used service: No Current occupational status: employed Current occupation: [employer] Current occupational exposures/hazards: No Cognitive needs: No Hearing needs: No Vision needs: Yes Questionnaire Thrive Questionnaire Date Thrive assessed: 06/22/24 AUDIT C Alcohol Use Questionnaire (AUDIT-C) 1. How often do you have a drink containing alcohol?: Never 3. How often do you have six or more drinks on one occasion?: Never Total Score: 0 Score Reviewed/Action Taken: Yes SADIA-7 AMB Questionnaire SADIA-7 Date SADIA - 7 assessed: 11/17/23 Source: Developed by Drs. Michael Asher, Naila Freeman, Noah Butts and colleagues, with an educational anel from [employer]. Physical exam (Primary Care) Vital Signs: Last Vital Signs Pulse 86 07/01/24 13:02 BP 136/80 07/01/24 13:02 Pulse Ox 95 07/01/24 13:02 Oxygen Delivery Method Room Air 07/01/24 13:02 BMI result Body Mass Index 20.2 Tobacco/Smoking Status: Tobacco use Status Tobacco use date assessed 07/01/24 07/01/24 13:04 Patient Tobacco Use Status Current everyday Tobacco 07/01/24 13:04 e-Cigarette/Vaping Use Never Used 07/01/24 13:04 Thrive Assessment: Date of Thrive Assessment Date Thrive assessed 06/22/24 07/01/24 13:04 Coding Level of Care Code Est Pt Level 4 (51344) Complex EM visit Add On G2211 Diagnoses Hypertension, essential I10 Chronic kidney disease, unspecified CKD stage N18.9 Chronic kidney disease stage: unspecified stage LFT elevation R79.89 GLENNA positive R76.8 Low vitamin B12 level R79.89 Low magnesium level R79.0 Alcoholism F10.20 Hx of group home use of blood thinners Z92.29 Chronic GERD K21.9 Lipid disorder E78.9 Difficulty sleeping G47.9 Other specified hypothyroidism E03.8 Assessment & Plan Assessment & Plan (1) Hypertension, essential: Code(s): I10 - Essential (primary) hypertension Category: Medical (2) CKD (chronic kidney disease): Code(s): N18.9 - Chronic kidney disease, unspecified Category: Medical Qualifiers: Chronic kidney disease stage: unspecified stage Qualified Code(s): N 18.9 - Chronic kidney disease, unspecified (3) LFT elevation: Code(s): R79.89 - Other specified abnormal findings of blood chemistry Category: Medical (4) GLENNA positive: Code(s): R76.8 - Other specified abnormal immunological findings in serum Category: Medical (5) Low vitamin B12 level: Code(s): R79.89 - Other specified abnormal findings of blood chemistry Category: Medical (6) Low magnesium level: Code(s): R79.0 - Abnormal level of blood mineral Category: Medical (7) Alcoholism: Code(s): F10.20 - Alcohol dependence, uncomplicated Category: Medical (8) Hx of group home use of blood thinners: Code(s): Z92.29 - Personal history of other drug therapy Category: Medical (9) Chronic GERD: Code(s): K21.9 - Gastro-esophageal reflux disease without esophagitis Category: Medical (10) Lipid disorder: Code(s): E78.9 - Disorder of lipoprotein metabolism, unspecified Category: Medical (11) Difficulty sleeping: Code(s): G47.9 - Sleep disorder, unspecified Category: Medical (12) Other specified hypothyroidism: Code(s): E03.8 - Other specified hypothyroidism Category: Medical Plan History Patient is a 58 year female, with a history of hypertension, lipid disorder, chronic GERD, hypothyroidism, stented coronary artery, paroxysmal atrial fibrillation, long-term use of blood thinners nephropathy allergies, difficulty sleeping, B12 deficiency Vaginal dryness 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 Had renal ultrasound January of 2024 which was unremarkable Patient was found to be GLENNA positive, evaluated by rheumatology However she is asymptomatic so she stopped going Continued to drink alcohol, trying to stop She has stopped taking magnesium supplement as it was causing diarrhea we will check the level Patient was supposed to have labs before this visit but she forgot she will have them today Mammogram and bone density done at [facility] I do not have the report we will try to get that Blood pressure is stable Continued to smoke patient blame bottom for that We talked about supportive environment and if she needs any help she will get back to me Medications - Amlodipine 5 mg for Essential Hypertension - Eliquis (Apixaban) - Vitamin D for Vitamin D Deficiency - Vitamin B12 for Vitamin B12 Deficiency - Famotidine 20 mg for Gastroesophageal Reflux Disease - Fenofibrate for Hyperlipidemia - Levothyroxine 50 mcg for Hypothyroidism - Loratadine (Antihistamine) - Metoprolol 200 mg at bedtime - Mirtazapine 15 mg (used for sleep difficulties, not deemed effective by the patient) Problem List - Essential Hypertension - Vitamin D Deficiency - Vitamin B12 Deficiency - Gastroesophageal Reflux Disease (managed with famotidine) - Hyperlipidemia (managed with fenofibrate) - Hypothyroidism (managed with levothyroxine) - Nicotine Dependence - Vision Deficiency (likely presbyopia, difficulties with progressive lenses) [facility] (location of recent mammogram and bone density test) - [facility] (patient's workplace and location for optical services) Patient Instructions - Complete the pending lab work today, as it does not require fasting. - Attempt to reduce smoking habits gradually. - Consider alternatives to progressive lenses or seek an fisher oyster for adjustment. - Schedule follow-up visit in September. - Be proactive in engaging in indoor winter activities to address boredom.
--- OUTSIDE RECORDS SUMMARY | 2024-07-01 13:16 | XMS_ITS | Clinical Summary ---
Author Organization [facility] Address [address] [place] [address] Phone Care Team Providers Care Cafeteria Attendant Name Role Phone Geraldo Rajan MD Primary Care Provider [phone] Encounters Date Type Department Care Team Description 05/13/2024 1:20 PM EST - 05/13/2024 11:59 PM EST Hospital [facility] [address] [phone] Encounter for screening mammogram for malignant neoplasm of breast Discharge Disposition: Home or Self Care 04/19/2024 1:43 PM EST - 04/19/2024 11:59 PM EST Hospital Encounter [facility] Bone Density [address] [place] [phone] Encounter for screening mammogram for malignant neoplasm of breast; Asymptomatic menopausal state Discharge Disposition: Home or Self Care from Last 3 Months Medical History Medical History Date Comments Hyperlipidemia DX:Hyperlipidemi a Essential hypertension DX:Essent ial hypertension Disorder of thyroid DX:Disorder of thyroid Social History Tobacco Use Types Packs/Day Years Used Date Smoking Tobacco: Never Assessed Alcohol Use Standard Drinks/Week Comments Never 0 (1 standard drink = 0.6 oz pur e alcohol) Comments No Sex and Gender Information Value Date Recorded Sex Assigned at Female 04/18/2024 4:50 PM EST Legal Sex Female 6:56 AM EST Gender Identity Female 04/18/2024 4:50 PM EST Sexual Orientation Not on file Obstetrics History Para Term AB IAB SAB Ectopic Multiple Livin g Live Births 3 Last Filed Vital Signs Vital Sign Reading Time Taken Comments Blood Pressure - - Pulse 108 02/07/2022 1:09 PM EDT Temperature - - Respiratory Rate - - Oxygen Saturation - - Inhaled Oxygen Concentration - - Weight 46.3 kg (102 lb) 05/13/2024 1:44 PM EST Height 149.9 cm (4' 11 ) 05/13/2024 1:44 PM EST Body Mass Index 20.6 05/13/2024 1:44 PM EST Plan of Treatment Health Maintenance Due Date Last Done Comments Pneumococcal Vaccine: Pediatrics (0 to 5 Years) and At-Risk Patients (6 to 64 Years) (1 of 2 - PCV) 08/27/1971 DTaP,Tdap,and Td Vaccines (1 - Tdap) 1984 Hepatitis A Vaccines (1 of 2 - Risk 2-dose series) 1984 Hepatitis B Vaccines (1 of 3 - 19+ 3-dose series) 1984 Cervical Cancer Screening: Pap Smear 1986 Cholesterol Screening (Lipid Panel) 04/20/2022 Colorectal Cancer Screening: Colonoscopy 04/20/2022 Depression Screening 04/20/2022 HIV Screening 04/20/2022 Hepatitis C Screening 04/20/2022 Social Influencers of Health Screening 04/20/2022 Hypertension/CHF/CAD Annual BMP Blood Test 04/19/2024 Breast Cancer Screening 05/13/2026 05/13/20 24, 10/14/2022, 05/31/2021, Additional history exists Osteoporosis Screening (Bone Density Screening) 04/19/2034 04/19/2024, 05/31/2021, 05/03/2019 Zoster Vaccines Completed 12/18/2021, 05/29/2021 COVID-19 Vaccine Completed 02/02/2024, 02/2023, 01/27/2022, Additional history exists Influenza Vaccine Completed 02/12/2024, , 02/18/2022, Additional history exists HIB Vaccines Aged Out No longer eligi ble based on patient's age to complete this topic HPV Vaccines Aged Out No longer eligi ble based on patient's age to complete this topic IPV Vaccines Aged Out No longer eligi ble based on patient's age to complete this topic MMR Vaccines Aged Out No longer eligi ble based on patient's age to complete this topic Meningococcal ACWY Vaccine Aged Out N o longer eligible based on patient's age to complete this topic RSV Immunization Patients Under 20 months Aged Out No longer eligible based on patient's age to complete this topic Varicella Vaccines Aged Out No longer eligible based on patient's age to complete this topic Procedures Procedure Name Priority Date/Time Associated Diagnosis Comments MG MAMMO DIGITAL SCREENING W HUNG BILAT Routine 05/13/2024 2:33 PM EST Encounter for screening mammogram for malignant neoplasm of breast BD BONE DENSITY DXA AXIAL SKELETON Routine 04/19/2024 2:13 PM EST Encounter for screening mammogram for malignant neoplasm of breast Asymptomatic menopausal state from Last 3 Months Results * MG Mammo Digital Screening w Hung bilat (05/13/2024 2:33 PM EST) Anatomical Region Laterality Modality Breast Bilateral Mammography 05/16/2024 8:09 AM EST Impressions 05/16/2024 8:12 AM EST No mammographic evidence of malignancy. A negative mammogram in the presence of a clinically suspicious palpable abnormality does not preclude the possibility of malignancy or alter the indications for biopsy. PQRI CPT II 3341F Code 04852, 67480 PQRI 225 CPT II 7025F TISSUE DENSITY: There are scattered areas of fibroglandular density. (BI-RADS category B) IMPRESSION: Benign. BI-RADS CATEGORY: 1 - NEGATIVE RECOMMENDATION: Screening bilateral mammogram is recommended in 1 year. Mammo Location: [facility], [address] [place] [address] -------- FINAL REPORT -------- Dictated By: Tonio Cole Dictated Date: 05/16/2024 08:09 ET Assigned Physician: Tonio Cole Reviewed and Electronically Signed By: Tonio Cole Signed Date: 05/16/2024 08:12 ET Workstation ID: [id number] Transcribed By: Self Edit Transcribed Date: 05/16/2024 08:09 ET Narrative 05/16/2024 8:12 AM EST CLINICAL: The patient is a 58 years Female presenting for routine screening mammography. COMPARISON: Most recently 10/14/2022 and most remotely 04/30/2017. ?? TECHNIQUE: Full-field digital mammography of the breasts bilaterally consisting of tomosynthesis in MLO and CC projection is performed in the [employer] 2000-D unit. ??Computer aided detection utilizing the iCAD system was utilized. FINDINGS: The breasts are again seen to be composed of a combination of fatty and fibroglandular elements. ??There is no cluster of microcalcifications, mass, or area of architectural distortion. There is no skin thickening or nipple retraction. Procedure Note Tonio Cole MD - 05/16/2024 CLINICAL: The patient is a 58 years Female presenting for routinescreening mammography. COMPARISON: Most recently 10/14/2022 and most remotely 04/30/2017. TECHNIQUE: Full-field digital mammography of the breasts bilaterallyconsisting of tomosynthesis in MLO and CC projection is performed in the[employer] 2000-D unit. Computer aided detection utilizing the iCADsystem was utilized. FINDINGS: The breasts are again seen to be composed of a combination offatty and fibroglandular elements. There is no cluster ofmicrocalcifications, mass, or area of architectural distortion. There isno skin thickening or nipple retraction. IMPRESSION: No mammographic evidence of malignancy. A negative mammogram in the presence of a clinically suspicious palpableabnormality does not preclude the possibility of malignancy or alter theindications for biopsy. PQRI CPT II 3341F Code 78301, 39955 PQRI 225 CPT II 7025F TISSUE DENSITY: There are scattered areas of fibroglandular density.(BI-RADS category B) IMPRESSION: Benign. BI-RADS CATEGORY: 1 - NEGATIVE RECOMMENDATION: Screening bilateral mammogram is recommended in 1 year. Mammo Location: [facility], [address] [place] [id number] -------- FINAL REPORT -------- Dictated By: Tonio Cole Dictated Date: 05/16/2024 08:09 ET Assigned Physician: Tonio Cole Reviewed and Electronically Signed By: Tonio Cole Signed Date: 05/16/2024 08:12 ET Workstation ID: [id number] Transcribed By: Self Edit Transcribed Date: 05/16/2024 08:09 ET us Geraldo Rajan MD IMG BI PROCEDURES Final Result * BD Bone Density DXA Axial Skeleton (04/19/2024 2:13 PM EST) Anatomical Region Laterality Modality Wrist, Hip, L-spine Bone Densito metry 04/19/2024 4:10 PM EST Impressions 04/19/2024 4:11 PM EST Osteopenia. ? [id number] -------- FINAL REPORT -------- Dictated By: Bisi Wilson Dictated Date: 04/19/2024 16:10 ET Assigned Physician: Bisi Wilson Reviewed and Electronically Signed By: Bisi Wilson Signed Date: 04/19/2024 16:11 ET Workstation ID: [id number] Transcribed By: Self Edit Transcribed Date: 04/19/2024 16:10 ET Narrative 04/19/2024 4:11 PM EST History: Low estrogen state due to menopause. Current smoker. Comparison: 05/31/21 Findings: Bone densitometry is performed utilizing dual energy x-ray absorptiometry (DXA) in the [employer] unit. The lumbar spine and proximal femora are evaluated in the AP projection. The FRAX questionaire was completed. The results indicate low bone mass (osteopenia), with bilateral femoral neck T- scores of -2.1. The Z score is -0.8, indicating bone mineral density within the range of normal for age. An apparent increase in bone mineral density in the spine may be a reflection of sclerotic degenerative changes. ??The detailed DEXA report will be mailed to the referring physician's office. DualFemur FRAX: 10-year Probability of Fracture: Major Osteoporotic 9.5 percent ??Hip 2.3 percent. Procedure Note Bisi Wilson MD - 04/19/2024 History: Low estrogen state due to menopause. Current smoker. Comparison: 05/31/21 Findings: Bone densitometry is performed utilizing dual energy x-ray absorptiometry(DXA) in the [employer] unit. The lumbar spine and proximal femora areevaluated in the AP projection. The FRAX questionaire was completed. The results indicate low bone mass (osteopenia), with bilateral femoralneck T- scores of -2.1. The Z score is -0.8, indicating bone mineraldensity within the range of normal for age. An apparent increase in bone mineral density in the spine may be areflection of sclerotic degenerative changes. The detailed DEXA reportwill be mailed to the referring physician's office. [employer]em[employer] FRAX: 10-year Probability of Fracture: Major Osteoporotic 9.5percent Hip 2.3 percent. IMPRESSION: Osteopenia. [id number] -------- FINAL REPORT -------- Dictated By: Bisi Wilson Dictated Date: 04/19/2024 16:10 ET Assigned Physician: Bisi Wilson Reviewed and Electronically Signed By: Bisi Wilson Signed Date: 04/19/2024 16:11 ET Workstation ID: [id number] Transcribed By: Self Edit Transcribed Date: 04/19/2024 16:10 ET Geraldo Rajan MD IMG DXA PROCEDURES Final Result from Last 3 Months Insurance [facility] [employer] PLAN Care Teams Cafeteria Attendant Relationship Specialty Start Date End Date Geraldo Rajan MD [address] [facility] [place] [address] PCP - General Internal Medicine 04/19/24
--- OUTSIDE RECORDS SUMMARY | 2024-07-01 13:16 | XMS_ITS | Clinical Summary ---
Author Organization [facility] Address [address] [place] [address] Care Team Providers Care Skate Shop Attendant Name Role Phone Mani Guillen MD Primary Care Provider [phone] Allergies Active Allergy Reactions Criticality Noted Date Comments Ticlopidine High 12/06/2020 Medications Medication Sig Dispensed Refills Start Date End Date Status Cholecalciferol (Vitamin D) 125 MCG (5000 UT) CAPS Take 125 mcg by mouth daily. 0 Active Loratadine 10 MG CAPS Take 10 mg by mouth daily. 0 Active famotidine (PEPCID) 20 MG tablet Take 20 mg by mouth daily. 0 Active fenofibrate micronized (LOFIBRA) 134 MG capsule Take 134 mg by mouth every morning before breakfast. 0 Active losartan (COZAAR) 100 MG tablet Take 100 mg by mouth daily. 0 Active metoprolol succinate (TOPROL-XL) 24 hr tablet 100 mg Take 200 mg by mouth daily. 0 Active levothyroxine (SYNTHROID) tablet 50 mcg Take 50 mcg by mouth daily. 0 Active apixaban (Eliquis) 5 MG TABS tablet Take 5 mg by mouth every 12 (twelve) hours. 0 Active FLUoxetine (PROzac) 10 MG capsule Take 10 mg by mouth daily. 0 Active pravastatin (PRAVACHOL) tablet 40 mg Take 40 mg by mouth daily. 0 Active Active Problems Problem Noted Date Diagnosed Date Elevated ferritin 12/15/2020 Family History Medical History Relation Name Comments Diabetes Father Cancer Sister Relation Name Status Comments Father Sister Social History Tobacco Use Types Packs/Day Years Used Date Smoking Tobacco: Former Cigarettes 35 Smokeless Tobacco: Never Alcohol Use Standard Drinks/Week Comments Yes 0 (1 standard drink = 0.6 oz pur e alcohol) 4 to 6 drinks a day Sex and Gender Information Value Date Recorded Sex Assigned at Not on file Gender Identity Not on file Sexual Orientation Not on file Last Filed Vital Signs Vital Sign Reading Time Taken Comments Blood Pressure 137/75 01/03/2021 2:46 PM EDT Pulse 78 01/03/2021 2:46 PM EDT Temperature 36.8 ??C (98.2 ??F) 01/03/2021 2:46 PM ED T Respiratory Rate - - Oxygen Saturation 100% 01/03/2021 2:46 PM EDT Inhaled Oxygen Concentration - - Weight 46.7 kg (103 lb) 01/03/2021 2:46 PM EDT Height 149.9 cm (4' 11 ) 01/03/2021 2:46 PM EDT Body Mass Index 20.8 01/03/2021 2:46 PM EDT Plan of Treatment Health Maintenance Due Date Last Done Comments Hepatitis B Vaccines (1 of 3 - 3-dose series) 1965 Hepatitis C Screening 1965 COVID-19 Vaccine (#1) 02/25/1966 Depression Screening 1977 Preventative Health Evaluation 08/27/1983 DTap / Tdap / Td (1 - Tdap) 1984 Cervical Cancer Screening (P ap Smear) 1986 Colon Cancer Screening (Colonoscopy) 2010 Breast Cancer Screening (Mammogram) 08/27/2015 Shingrix-Zoster Vaccine (1 of 2) 08/27/2015 Influenza Vaccine (#1) 2024 Pneumococcal Vaccine Aged Out No long er eligible based on patient's age to complete this topic RSV Ped < 20 months Aged Out No longe r eligible based on patient's age to complete this topic Care Teams Skate Shop Attendant Relationship Specialty Start Date End Date Mani Guillen MD [address] [place] [id number] PCP - General Internal Medicine 10/30/20
--- OUTSIDE RECORDS SUMMARY | 2024-07-01 13:16 | XMS_ITS | Patient Health Record ---
[facility] [place] Address [address] [place] [address] Care Team Providers Care Writer Name Role Phone Mani Guillen MD Primary Care Provider Brittany Loomis Unavailable [phone] Allergies Allergen (clinical drug ingredient) Drug/Non Drug Allergy documented on EMR Reaction Allergy Type Onset Date Status Ticlid Unknown Drug Allergy Active Shellfish (FN) Shellfish-derived Products anaphylaxis Drug Allergy Active Reason For Referral No Information Medications Medication SIG (Take, Route, Frequency, Duration) Notes Start Date End Date Status Vitamin D (Ergocalciferol) 1.25 MG (30186 UT) 1 capsule Orally for 30 day(s) Active FLUoxetine HCl 10 MG 1 capsule Orally On ce a day for 30 day(s) Not-Taking Pravastatin Sodium 40 MG 1 tablet Orally Once a day for 30 day(s) Active Levothyroxine Sodium 50 MCG 1 tablet in the morning on an empty stomach Orally Once a day for 30 day(s) Active Eliquis 5 MG as directed Orally Active Losartan Potassium 100 MG 1 tablet Orall y Once a day for 30 day(s) Active Metoprolol Succinate 200 MG 1 capsule Orally Once a day for 30 day(s) Active Fenofibrate 134 MG 1 capsule with a james l Orally Once a day for 30 day(s) Active Loratadine 10 MG 1 tablet Orally Once a day for 30 day(s) Active Famotidine 20 MG 1 tablet at bedtime as needed Orally Once a day for 30 day(s) Active Social History Tobacco Use: Social History Observation Description Date Details (start date - stop date) Former Smoker NA - NA Tobacco Use/Smoking Question Answer Notes Are you a: former smoker Additional Findings: Tobacco Non-User Ex-cigaret te smoker Alcohol Screen Question Answer Notes Did you have a drink contain ing alcohol in the past year? Yes How often did you have a dri nk containing alcohol in the past year? 4 or more times a week (4 points) Points 4 Interpretation Positive Tobacco use other than smoking: Question Answer Notes Are you an other tobacco user? No Plan Of Treatment No Information Insurance Providers Payer Name Payer Address Payer Phone Subscriber Number Group Number Insured Name Patient Relationship to Insured Coverage Start Date Coverage End Date [facility] All Others [id number] [place] [address] [id number] Behzad Saldiavr Spouse - patient is the spouse of the insured Medical (General) History Medical History History ICD Code CAD (Cholesterol) Heart disease High blood pressure Warts Chicken pox Transfusions A fib Kidney failure Surgical History Surgery Date(Month/Year) 3 Stents in Heart 10/23/2014 tubal ligation
--- OUTSIDE RECORDS SUMMARY | 2024-07-01 13:17 | XMS_ITS | Clinical Summary ---
Author Organization [facility] Address [address] [place] [address] Phone Care Team Providers Care Environmental Emergencies Planner Name Role Phone Geraldo Rajan MD Primary Care Provider [phone] Allergies Active Allergy Reactions Criticality Noted Date Comments Nicotine 07/01/2021 Other reaction(s): hallicinations pt states used to smoke Shellfish-Derived Products Other (see comments) 02/19/2021 Shrimp (Diagnostic) Hives 07/01/2021 Ticlopidine High 12/06/2020 Medications pravastatin (PRAVACHOL) 40 MG tablet Take 40 mg by mouth 1 (one) time each day Active apixaban (ELIQUIS) 5 MG tablet Take 5 mg by mouth 2 (two) times a day Active levothyroxine (SYNTHROID, LEVOTHROID) 50 MCG tablet Take 50 mcg by mouth 1 (one) time each day Active metoprolol succinate XL (TOPROL-XL) 200 MG 24 hr tablet Take 200 mg by mouth at bed time 02/08/2021 Active famotidine (PEPCID) 20 MG tablet Take 20 mg by mouth 1 (one) time each day Active cholecalciferol (VITAMIN D-3) 125 MCG (5000 UT) capsule Take 125 mcg by mouth 1 (one) time each day Active mirtazapine (REMERON) 7.5 MG tablet Take 15 mg by mouth every night Active loratadine (CLARITIN) 10 MG tablet Take 10 mg by mouth 04/16/2021 Active amLODIPine (NORVASC) 2.5 MG tablet TAKE 1 TABLET BY MOUTH EVERY DAY EVERY EVENING 10/15/2021 Active fenofibrate micronized (LOFIBRA) 134 MG capsule 11/11/2021 Active isosorbide mononitrate (ISMO,MONOKET) 10 MG tablet Take 10 mg by mouth in the morning and 10 mg in the evening. Active estrogens, conjugated, (PREMARIN) 0.625 MG tablet Take 0.625 mg by mouth 2 (two) times a week Take daily for 21 days then do not take for 7 days. Active Active Problems Problem Noted Date Diagnosed Date Atrial fibrillation 08/12/2021 Hypertension 02/14/2021 Heart disease 02/14/2021 Disorder of thyroid gland 02/14/2021 Cancer of skin 02/14/2021 Alcohol abuse 02/14/2021 Anorexia 02/14/2021 Protein level - finding 12/15/2020 Family History Medical History Relation Comments Diabetes Father Cancer Sister Relation Status Comments Father Sister Social History Tobacco Use Types Packs/Day Years Used Date Smoking Tobacco: Former Cigarettes Smokeless Tobacco: Never Alcohol Use Standard Drinks/Week Comments Yes 0 (1 standard drink = 0.6 oz pur e alcohol) Comments Unknown Sex and Gender Information Value Date Recorded Sex Assigned at Not on file Legal Sex Female 9:01 AM EDT Gender Identity Not on file Sexual Orientation Not on file Last Filed Vital Signs Vital Sign Reading Time Taken Comments Blood Pressure 148/76 10/30/2022 2:46 PM EDT Pulse 93 10/30/2022 2:46 PM EDT Temperature - - Respiratory Rate - - Oxygen Saturation 96% 10/30/2022 2:46 PM EDT Inhaled Oxygen Concentration - - Weight 49 kg (108 lb) 10/30/2022 2:46 PM EDT Height 149.9 cm (4' 11 ) 10/30/2022 2:46 PM EDT Body Mass Index 21.81 10/30/2022 2:46 PM EDT Plan of Treatment Health Maintenance Due Date Last Done Comments Breast Cancer Screening 1965 Pneumococcal Vaccine: Pediat rics (0 to 5 Years) and At-Risk Patients (6 to 64 Years) (1 of 2 - PCV) 08/27/1971 Hepatitis B Vaccine (1 of 3 - 19+ 3-dose series) 08/26 Colorectal Cancer Screening: Annual FOBT 2014 Colorectal Cancer Screening: Colonoscopy 2014 Colorectal Cancer Screening: Sigmoidoscopy 2014 Influenza Vaccine (#1) 2024 Insurance [facility] MEDICAID [facility] MEDICAID Care Teams Environmental Emergencies Planner Relationship Specialty Start Date End Date Geraldo Rajan MD [address] [place] [address] PCP - General Internal Medicine 10/30/22
== END 2024-07-01 13:26 | disposition home or self-care (01) ==
LOC: HO.HMCC 12:53
PROVIDERS: PCP Internal Medicine; Visit Provider Internal Medicine
DX: I12.9 Hypertensive chronic kidney disease with stage 1 through stage 4 chronic kidney disease, or unspecified chronic kidney disease (principal); N18.9 Chronic kidney disease, unspecified; R79.89 Other specified abnormal findings of blood chemistry; R76.8 Other specified abnormal immunological findings in serum; R79.0 Abnormal level of blood mineral; F10.20 Alcohol dependence, uncomplicated; Z92.29 Personal history of other drug therapy; K21.9 Gastro-esophageal reflux disease without esophagitis; E78.9 Disorder of lipoprotein metabolism, unspecified; G47.9 Sleep disorder, unspecified; E03.8 Other specified hypothyroidism

== ENCOUNTER 2024-07-29 12:33 | Outpatient (REF) | payer OTHER, SELFPAY ==
--- OUTSIDE RECORDS SUMMARY | 2024-07-29 14:07 | XMS_ITS | Clinical Summary ---
Author Organization [facility] Address [address] [place] [address] Care Team Providers Care Academic Assistant Name Role Phone Mani Guillen MD Primary Care Provider [phone] Allergies Active Allergy Reactions Criticality Noted Date [...] age to complete this topic Care Teams Academic Assistant Relationship Specialty Start Date End Date Main Guillen MD [address] [place] [address] PCP - General Internal Medicine 10/30/20
--- OUTSIDE RECORDS SUMMARY | 2024-07-29 14:07 | XMS_ITS | Clinical Summary ---
Author Organization [facility] Address [address] [place] [address] Phone Care Team Providers Care Manager Decision Support Name Role Phone Geraldo Rajan MD Primary Care Provider [phone] Allergies Active Allergy Reactions Criticality Noted Date [...] Sigmoidoscopy 2014 Influenza Vaccine (#1) 2024 Insurance [facility] MEDICAID [facility] [employer] [facility] MEDICAID Care Teams Manager Decision Support Relationship Specialty Start Date End Date Geraldo Rajan MD [address] [place] [address] PCP - General Internal Medicine 10/30/22
--- OUTSIDE RECORDS SUMMARY | 2024-07-29 14:07 | XMS_ITS | Clinical Summary ---
Author Organization [facility] Address [address] [place] [address] Phone Care Team Providers Care Vacuum Conditioner Operator Name Role Phone Geraldo Rajan MD Primary Care Provider [phone] Encounters Date Type Department Care Team Description 05/13/2024 1:20 PM EST - 05/13/2024 11:59 PM EST [facility] at [address] [phone] Encounter for screening mammogram for malignant neoplasm of breast Discharge Disposition: Home or Self Care from [...] Health Maintenance Due Date Last Done Comments DTaP,Tdap,and Td Vaccines (1 - Tdap) 1984 Hepatitis A Vaccines (1 of 2 - Risk 2-dose series) 1984 Hepatitis B Vaccines (1 of 3 - 19+ 3-dose series) 1984 Pneumococcal Vaccine: 50+ Years (1 of 2 - PCV) 1984 Pneumococcal Vaccine: Pediatrics (0 to 5 Years) and At-Risk Patients (6 to 64 Years) (1 of 2 - PCV) 1984 Cervical Cancer Screening: Pap Smear 1986 [...] patient's age to complete this topic Meningococcal B Vacine Aged Out No lo nger eligible based on patient's age to complete [...] Asymptomatic menopausal state from Last 3 Months or Most Recently Relevant to Health Maintenance Results * MG Mammo Digital Screening w [...] for biopsy. PQRI CPT II 3341F Code 00806, 30867 PQRI 225 CPT II 7025F TISSUE DENSITY: There are scattered areas of fibroglandular density. (BI-RADS category B) IMPRESSION: Benign. BI-RADS CATEGORY: 1 - NEGATIVE RECOMMENDATION: Screening bilateral mammogram is recommended in 1 year. Mammo Location: [facility], [address] [place] [address] -------- FINAL REPORT -------- Dictated By: Tonio Cole Dictated Date: 05/16/2024 08:09 ET Assigned Physician: Tonio Cole Reviewed and Electronically Signed By: Tonio Cole Signed Date: 05/16/2024 08:12 ET Workstation ID: [id number] Transcribed By: Self Edit Transcribed Date: 05/16/2024 08:09 ET Narrative 05/16/2024 8:12 AM EST CLINICAL: The patient is a 58 years Female presenting for routine screening mammography. COMPARISON: Most recently 10/14/2022 and most remotely 04/30/2017. ?? TECHNIQUE: Full-field digital mammography of the breasts bilaterally consisting of tomosynthesis in MLO and CC projection is performed in the [employer] 2000-D unit. ??Computer aided detection utilizing the [...] MLO and CC projection is performed in the[employer] 2000-D unit. Computer aided detection utilizing the [...] for biopsy. PQRI CPT II 3341F Code 34476, 00475 PQRI 225 CPT II 7025F TISSUE DENSITY: There are scattered areas of fibroglandular density.(BI-RADS category B) IMPRESSION: Benign. BI-RADS CATEGORY: 1 - NEGATIVE RECOMMENDATION: Screening bilateral mammogram is recommended in 1 year. Mammo Location: [facility], [facility], [address] [place] [address] -------- FINAL REPORT -------- Dictated By: Tonio Cole Dictated Date: 05/16/2024 08:09 ET Assigned Physician: Tonio Cole Reviewed and Electronically Signed By: Tonio Cole Signed Date: 05/16/2024 08:12 ET Workstation ID: [id number] Transcribed By: Self Edit Transcribed Date: 05/16/2024 08:09 ET us Geraldo Rajan MD IMG BI PROCEDURES Final Result * BD Bone Density DXA Axial Skeleton (04/19/2024 2:13 PM EST) Anatomical Region Laterality Modality Wrist, Hip, L-spine Bone Densito metry 04/19/2024 4:10 PM EST Impressions 04/19/2024 4:11 PM EST Osteopenia. ? [id number] -------- FINAL REPORT -------- Dictated By: Bisi Wilson Dictated Date: 04/19/2024 16:10 ET Assigned Physician: Bsii Wilson Reviewed and Electronically Signed By: Bisi Wilson Signed Date: 04/19/2024 16:11 ET Workstation ID: [id number] Transcribed By: Self Edit Transcribed Date: 04/19/2024 16:10 ET Narrative 04/19/2024 4:11 PM EST History: Low estrogen state due to menopause. Current smoker. Comparison: 05/31/21 Findings: Bone densitometry is performed utilizing dual energy x-ray absorptiometry (DXA) in the [employer] Prodigy unit. The lumbar spine and proximal [...] utilizing dual energy x-ray absorptiometry(DXA) in the [employer] unit. The lumbar spine and proximal femora [...] Osteoporotic 9.5percent Hip 2.3 percent. IMPRESSION: Osteopenia. [id number] -------- FINAL REPORT -------- Dictated By: Bisi Wilson Dictated Date: 04/19/2024 16:10 ET Assigned Physician: Bisi Wilson Reviewed and Electronically Signed By: Bisi Wilson Signed Date: 04/19/2024 16:11 ET Workstation ID: [id number] Transcribed By: Self Edit Transcribed Date: 04/19/2024 16:10 ET Geraldo Rajan MD IMG DXA PROCEDURES Final Result from Last 3 Months or Most Recently Relevant to Health Maintenance Insurance [facility] [employer] Care Teams Vacuum Conditioner Operator Relationship Specialty Start Date End Date Geraldo Rajan MD [address] [place] [phone] PCP - General Internal Medicine 04/19/24
--- OUTSIDE RECORDS SUMMARY | 2024-07-29 14:07 | XMS_ITS | Patient Health Record ---
Author [facility] [place] Address [address] [place] [address] Care Team Providers Care Tools Developer Name Role Phone Mani Guillen MD Primary Care Provider Brittany Loomis Unavailable [phone] Allergies Allergen (clinical drug ingredient) Drug/Non Drug Allergy documented on EMR Reaction Allergy Type Onset Date Status Ticlid Unknown Drug Allergy Active Shellfish (FN) Shellfish-derived Products anaphylaxis Drug Allergy Active Reason For Referral No Information Medications Medication SIG (Take, Route, Frequency, Duration) Notes Start Date End Date Status Vitamin D (Ergocalciferol) 1.25 MG (54555 UT) 1 capsule Orally for 30 day(s) [...] Insured Coverage Start Date Coverage End Date [facility] All Others [id number] [place] [address] [id number] Behzad Saldivar Spouse - patient is the spouse of the insured Medical (General) History Medical History History ICD Code CAD (Cholesterol) Heart disease High blood pressure Warts Chicken pox Transfusions A fib Kidney failure Surgical History Surgery Date(Month/Year) 3 Stents in Heart 10/23/2014 tubal ligation
[2024-07-29 16:30] LABS: Appearance Urine Turbid; Color Urine Dark Yellow; Glucose Urine UA Negative (Negative); Leukocyte Esterase Urine Small (1+) (Negative); Nitrite Urine Negative (Negative); UMIC TRIGGER UA YES; Urine Blood Trace (Negative); Urine Ketones Trace mg/dL (Negative); Urine Protein Trace mg/dL (Neg-Trace)
[2024-07-29 16:35] LABS: Bacteria Urine None Seen (None Seen); Hyaline Casts Urine 0-2 /LPF (0-2); Squamous Epithelial Cell Urine 0-2 /HPF (0-2)
== END 2024-07-29 12:34 | disposition home or self-care (01) ==
LOC: HO.HMGCLDS 12:33
PROVIDERS: PCP Internal Medicine; Visit Provider Internal Medicine
DX: R30.0 Dysuria (principal)
CPT/HCPCS: 81001; 87086

== ENCOUNTER 2024-09-23 13:39 | Outpatient (AMB) | payer OTHER, SELFPAY ==
[2024-09-23 13:41] VITALS: BP 128/86; PULSE 88; O2SAT 96; BMI 19.9
--- NOTE | 2024-09-23 13:41 | MHC.PC.OV ---
Vital Signs 09/23/24 13:41 Height 4 ft 11 in Weight 98 lb 8 oz BMI 19.9 BP 128/86 Blood Pressure Location Rt brachial Position Sitting Pulse 88 Pulse Source Pulse Oximeter Pulse Oximetry (%) 96 Oxygen Delivery Method Room Air Intake Visit Reasons: 3 months f/up Allergies ticlopidine [From Ticlid] Allergy (Verified 09/23/24 13:41) Anaphylaxis seafood Adverse Reaction (Severe, Verified 09/23/24 13:41) Anaphylaxis Medication List - Last Reconciled 09/23/24 by Geraldo Rajan MD amlodipine 5 mg PO QPM apixaban (Eliquis) 5 mg PO BID cholecalciferol (vitamin D3) 125 mcg PO DAILY cyanocobalamin (vitamin B-12) 1,000 mcg PO DAILY 90 days famotidine 20 mg PO DAILY fenofibrate micronized 134 mg PO DAILY isosorbide dinitrate 10 mg PO BID levothyroxine 50 mcg PO DAILY loratadine 10 mg PO DAILY magnesium oxide 400 mg PO DAILY 90 days metoprolol succinate ER 200 mg PO BEDTIME mirtazapine 15 mg PO QPM pravastatin 40 mg PO DAILY Tobacco use date assessed: 09/23/24 Dental Screening Dental Screen Date: 09/23/24 Did you have a dental visit in the last 12 months?: No Did you have a dental problem in the last 6 months where you did not have access to dental care?: No Was dental information given to patient?: Patient declined HPI 3 months f/up HPI Details History - The patient is a 59-year-old female presenting with follow-up concerns regarding moderate carotid artery stenosis and management issues caused by insurance changes. she was seeing Cardiology at [facility], but her insurance no longer cover that - The patient has a history of moderate carotid artery stenosis initially identified some time ago, with the last ultrasound conducted the previous year. The patient recalls one side exhibiting approximately 70% blockage. She routinely undergoes annual ultrasounds. - The patient has an established history of atrial fibrillation and coronary artery disease, typically involving annual visits to a sugar cane planting equipment operator. However, due to insurance issues, she requires a new cardiology provider. - The patient reports a history of kidney dysfunction requiring a specialist. Her recent laboratory results indicate normal kidney function; hence, she questions the necessity of continuing specialized care. - The patient takes vitamin B12 supplements, which previously resulted in elevated levels. She was advised to reduce the frequency of this supplementation. - allergies and allergic rhinitis. She notes that pollen exposure exacerbates her allergies, partially improved by using Claritin and Flonase. Medications - Amlodipine 5 mg for hypertension - Eliquis for atrial fibrillation - Vitamin D, supplement regimen unspecified - Famotidine, use unspecified - Fenofibrate for hyperlipidemia - Levothyroxine 50 mcg for hypothyroidism - Loratadine for allergic rhinitis - Metoprolol 200 mg, indication unspecified - Mirtazapine 15 mg at night, indication unspecified - Pravastatin 40 mg for hyperlipidemia - Magnesium supplement, indication unspecified Problem List - Moderate Carotid Artery Stenosis - Atrial Fibrillation - Coronary Artery Disease - Allergic Rhinitis - History of Kidney Dysfunction (improved) - Vitamin B12 Elevation - Essential Hypertension Diagnostic results - Labs (June): - CBC: Normal; no anemia - Electrolytes: Normal - Kidney function: Normal - Vitamin B12 level: Elevated - Thyroid function: Normal Patient Instructions - Continue current regimen of Claritin and Flonase for allergy management. - Adjust vitamin B12 intake to twice a week instead of daily. - Await hospital scheduling for carotid ultrasound. - Follow up with a new sugar cane planting equipment operator at [facility] for heart-related conditions. - Continue with current medications unless otherwise instructed. - Ensure fasting blood test completion during the next scheduled visit. - Monitor allergy symptoms and adjust environment to reduce exposure to allergens. Review of Systems General: No fever no chills neurological: No headaches no dizziness ear nose throat: No sore throat no hearing difficulty no ear pain cardiovascular: No syncope, no chest pain, no palpitations gastrointestinal: No nausea vomiting or diarrhea endocrine: No polyuria polydipsia no heat intolerance genitourinary: No dysuria skin: No new complaints Physical Exam general: No acute distress HEENT: No acute findings neck: Supple respiratory system: Lungs are clear, able to talk in full sentences, no audible wheeze, no stridor cardiovascular: S1-S2 RRR gastrointestinal: No pain, no nausea, no vomiting extremities: No new findings, no swelling CASINO ACCOUNTANT: Alert awake oriented x3 motor sensory intact skin: Normal turgor [facility] Medical History CAD (coronary artery disease) History of open arm wound Afib Surgical History H/O excision of mass H/O tubal ligation Family History Sister PTSD (post-traumatic stress disorder) Delusional disorder Crohn's colitis Daughter Bipolar 1 disorder Father Alcohol abuse Social History Housing: House Alcohol intake: current Alcohol intake frequency: 3 or more drinks per day Alcohol type: hard liquor Patient Tobacco Use Status: Current everyday Tobacco user Cigarettes Per Day: 5 e-Cigarette/Vaping Use: Never Used service: No Current occupational status: employed Current occupation: [employer] Current occupational exposures/hazards: No Cognitive needs: No Hearing needs: No Vision needs: Yes Questionnaire PHQ-9 Over the last 2 weeks, how often have you been bothered by any of the following problems? 1. Little interest or pleasure in doing things: not at all 2. Feeling down, depressed, or hopeless: not at all 3. Trouble falling or staying asleep, or sleeping too much: not at all 4. Feeling tired or having little energy: not at all 5. Poor appetite or overeating: not at all 6. Feeling bad about yourself - or that you are a failure or have let yourself or your family down: not at all 7. Trouble concentrating on things, such as reading the newspaper or watching television: not at all 8. Moving or speaking so slowly that other people could have noticed. Or the opposite - being so fidgety or restless that you have been moving around a lot more than usual: not at all 9. Thoughts that you would be better off or of hurting yourself in some way: not at all Total score: 0 Depression Screening Interpretation: Negative Depression Screening Done: Yes 27467 - PHQ-9 Billing: Yes Source: Developed by Drs. Michael Asher, Naila Freeman, Noah Butts and colleagues, with an educational anel from [email or web address]. Thrive Questionnaire Date Thrive assessed: 09/23/24 I am a: Patient What is your living situation today?: I have a steady place to live Within the past 12 months, did the food you bought not last and you didn't have the money to get more?: Never true Within the past 12 months, did you worry whether your food would run out before you got money to buy more?: Sometimes True Do you have trouble paying for medicines?: No Do you have trouble getting transportation to medical appointments?: No Do you have trouble paying your heating and electricity bill?: No Do you have trouble taking care of your child, family member or friend?: No Do you have trouble with day-to-day activities such as bathing, preparing meals, shopping, managing finances, etc.?: No Are you currently unemployed and looking for a job?: No Are you interested in more education?: No Please select the resources that you would like help with: None Currently or been in a relationship where the following occur: No concerns reported THRIVE Score: 1 AUDIT C Alcohol Use Questionnaire (AUDIT-C) 1. How often do you have a drink containing alcohol?: Never 3. How often do you have six or more drinks on one occasion?: Never Total Score: 0 Score Reviewed/Action Taken: Yes SADIA-7 AMB Questionnaire SADIA-7 Date SADIA - 7 assessed: 09/23/24 Feeling nervous, anxious, or on edge: 0 = Not at all Not being able to stop or control worryin = Not at all Worrying too much about different things: 0 = Not at all Trouble relaxin = Not at all Being so restless that it is hard to sit still: 0 = Not at all Becoming easily annoyed or irritable: 0 = Not at all Feeling afraid as if something awful might happen: 0 = Not at all Total SADIA-7 score (0-4 normal; 5-9 mild; 10-14 moderate; 15-21 severe): 0 Source: Developed by Drs. Michael Asher, Naila Freeman, Noah Butts and colleagues, with an educational anel from [email or web address]. SADIA-7 Assessment Billing SADIA-7 Assessment Tool: SADIA-7 Assessment 34246 Physical exam (Primary Care) Vital Signs: Last Vital Signs Pulse 88 09/23/24 13:41 BP 128/86 09/23/24 13:41 Pulse Ox 96 09/23/24 13:41 Oxygen Delivery Method Room Air 09/23/24 13:41 BMI result Body Mass Index 19.9 Tobacco/Smoking Status: Tobacco use Status Tobacco use date assessed 09/23/24 09/23/24 13:44 Patient Tobacco Use Status Current everyday Tobacco 09/23/24 13:41 e-Cigarette/Vaping Use Never Used 09/23/24 13:41 PHQ-9: PHQ-9 Score PHQ-9: Total score 0 09/23/24 13:44 Depression Screening Interpretation: Negative Thrive Assessment: Date of Thrive Assessment Date Thrive assessed 09/23/24 09/23/24 13:44 Currently or been in a relationship where the following occur: No concerns reported Coding Level of Care Code Est Pt Level 4 (61388) Complex EM visit Add On G2211 Diagnoses Bilateral carotid artery stenosis I65.23 Carotid artery disease type: stenosis Laterality: bilateral Other specified hypothyroidism E03.8 Paroxysmal atrial fibrillation I48.0 Atrial fibrillation type: paroxysmal Lipid disorder E78.9 Difficulty sleeping G47.9 Environmental allergies Z91.09 Chronic GERD K21.9 Hx of long term care pharmacist use of blood thinners Z92.29 Coronary artery disease of [place] artery of [place] heart with stable angina pectoris I25.118 Associated angina: with stable angina Coronary Disease-Associated Artery/Lesion type: [place] artery [place] vs. transplanted heart: [place] heart Additional Codes SADIA-7 Assessment Billing - SADIA-7 Assessment Tool: SADIA-7 Assessment 38417 ([id number]) PHQ-9 - 77196 - PHQ-9 Billing: Yes ([id number]) Assessment & Plan Assessment & Plan (1) Carotid artery disease: Code(s): I77.9 - Disorder of arteries and arterioles, unspecified Category: Medical Qualifiers: Carotid artery disease type: stenosis Laterality: bilateral Qualified Code(s): I65.23 - Occlusion and stenosis of bilateral carotid arteries (2) Other specified hypothyroidism: Code(s): E03.8 - Other specified hypothyroidism Category: Medical (3) Afib: Code(s): I48.91 - Unspecified atrial fibrillation Category: Medical Qualifiers: Atrial fibrillation type: paroxysmal Qualified Code(s): I48.0 - Paroxysmal atrial fibrillation (4) Lipid disorder: Code(s): E78.9 - Disorder of lipoprotein metabolism, unspecified Category: Medical (5) Difficulty sleeping: Code(s): G47.9 - Sleep disorder, unspecified Category: Medical (6) Environmental allergies: Code(s): Z91.09 - Other allergy status, other than to drugs and biological substances Category: Medical (7) Chronic GERD: Code(s): K21.9 - Gastro-esophageal reflux disease without esophagitis Category: Medical (8) Hx of long term care pharmacist use of blood thinners: Code(s): Z92.29 - Personal history of other drug therapy Category: Medical (9) CAD (coronary artery disease): Comment: with three stents Code(s): I25.10 - Atherosclerotic heart disease of [place] coronary artery without angina pectoris Category: Medical Qualifiers: Associated angina: with stable angina Coronary Disease-Associated Artery/Lesion type: [place] artery [place] vs. transplanted heart: [place] heart Qualified Code(s): I25.118 - Atherosclerotic heart disease of [place] coronary artery with other forms of angina pectoris Plan History - The patient is a 59-year-old female presenting with follow-up concerns regarding moderate carotid artery stenosis and management issues caused by insurance changes. she was seeing Cardiology at [facility], but her insurance no longer cover that - The patient has a history of moderate carotid artery stenosis initially identified some time ago, with the last ultrasound conducted the previous year. The patient recalls one side exhibiting approximately 70% blockage. She routinely undergoes annual ultrasounds. - The patient has an established history of atrial fibrillation and coronary artery disease, typically involving annual visits to a sugar cane planting equipment operator. However, due to insurance issues, she requires a new cardiology provider. - The patient reports a history of kidney dysfunction requiring a specialist. Her recent laboratory results indicate normal kidney function; hence, she questions the necessity of continuing specialized care. - The patient takes vitamin B12 supplements, which previously resulted in elevated levels. She was advised to reduce the frequency of this supplementation. - allergies and allergic rhinitis. She notes that pollen exposure exacerbates her allergies, partially improved by using Claritin and Flonase. Medications - Amlodipine 5 mg for hypertension - Eliquis for atrial fibrillation - Vitamin D, supplement regimen unspecified - Famotidine, use unspecified - Fenofibrate for hyperlipidemia - Levothyroxine 50 mcg for hypothyroidism - Loratadine for allergic rhinitis - Metoprolol 200 mg, indication unspecified - Mirtazapine 15 mg at night, indication unspecified - Pravastatin 40 mg for hyperlipidemia - Magnesium supplement, indication unspecified Problem List - Moderate Carotid Artery Stenosis - Atrial Fibrillation - Coronary Artery Disease - Allergic Rhinitis - History of Kidney Dysfunction (improved) - Vitamin B12 Elevation - Essential Hypertension Diagnostic results - Labs (June): - CBC: Normal; no anemia - Electrolytes: Normal - Kidney function: Normal - Vitamin B12 level: Elevated - Thyroid function: Normal Patient Instructions - Continue current regimen of Claritin and Flonase for allergy management. - Adjust vitamin B12 intake to twice a week instead of daily. - Await hospital scheduling for carotid ultrasound. - Follow up with a new sugar cane planting equipment operator at [facility] for heart-related conditions. - Continue with current medications unless otherwise instructed. - Ensure fasting blood test completion during the next scheduled visit. - Monitor allergy symptoms and adjust environment to reduce exposure to allergens. Orders: Orders Complete Blood Count Auto Diff Today E03.8 - Other specified hypothyroidism, E78.9 - Disorder of lipoprotein metabolism, unspecified, G47.9 - Sleep disorder, unspecified, K21.9 - Gastro-esophageal reflux disease without esophagitis, Z91.09 - Other allergy status, other than to drugs and biological substances, Z92.29 - Personal history of other drug therapy Comprehensive [place]. Panel Fast Today E03.8 - Other specified hypothyroidism, E78.9 - Disorder of lipoprotein metabolism, unspecified, G47.9 - Sleep disorder, unspecified, K21.9 - Gastro-esophageal reflux disease without esophagitis, Z91.09 - Other allergy status, other than to drugs and biological substances, Z92.29 - Personal history of other drug therapy Vitamin D 25-OH (D2 and D3) Today E03.8 - Other specified hypothyroidism, E78.9 - Disorder of lipoprotein metabolism, unspecified, G47.9 - Sleep disorder, unspecified, K21.9 - Gastro-esophageal reflux disease without esophagitis, Z91.09 - Other allergy status, other than to drugs and biological substances, Z92.29 - Personal history of other drug therapy Vitamin B12 Today E03.8 - Other specified hypothyroidism, E78.9 - Disorder of lipoprotein metabolism, unspecified, G47.9 - Sleep disorder, unspecified, K21.9 - Gastro-esophageal reflux disease without esophagitis, Z91.09 - Other allergy status, other than to drugs and biological substances, Z92.29 - Personal history of other drug therapy TSH reflex Free T4 Today E03.8 - Other specified hypothyroidism, E78.9 - Disorder of lipoprotein metabolism, unspecified, G47.9 - Sleep disorder, unspecified, K21.9 - Gastro-esophageal reflux disease without esophagitis, Z91.09 - Other allergy status, other than to drugs and biological substances, Z92.29 - Personal history of other drug therapy US carotid duplex BI Today I77.9 - Disorder of arteries and arterioles, unspecified Lipid Panel Today E03.8 - Other specified hypothyroidism, E78.9 - Disorder of lipoprotein metabolism, unspecified, G47.9 - Sleep disorder, unspecified, K21.9 - Gastro-esophageal reflux disease without esophagitis, Z91.09 - Other allergy status, other than to drugs and biological substances, Z92.29 - Personal history of other drug therapy Referrals Cardiology Referral I25.118 - Atherosclerotic heart disease of [place] coronary artery with other forms of angina pectoris, I48.91 - Unspecified atrial fibrillation, I77.9 - Disorder of arteries and arterioles, unspecified Medications: New magnesium glycinate 100 mg PO .QHS 90 days 90 caps 3RF Refilled fenofibrate micronized 134 mg PO DAILY 90 caps 1RF Discontinued magnesium oxide Discontinued Reason: Doctor's Order 400 mg PO DAILY 90 days 90 caps 0RF
--- OUTSIDE RECORDS SUMMARY | 2024-09-23 13:45 | XMS_ITS | Clinical Summary ---
Author Organization [facility] Address [address] [place] [address] Care Team Providers Care Inside B2B Sales Name Role Phone Mani Guillen MD Primary Care Provider [phone] Allergies Active Allergy Reactions Criticality Noted Date [...] age to complete this topic Care Teams Inside B2B Sales Relationship Specialty Start Date End Date Mani Guillen MD [address] [place] [id number] PCP - General Internal Medicine 10/30/20
--- OUTSIDE RECORDS SUMMARY | 2024-09-23 13:45 | XMS_ITS | Clinical Summary ---
Author Organization [facility] Address [address] [place] [address] Phone Care Team Providers Care Micro Computer Data Processor Name Role Phone Geraldo Rajan MD Primary Care Provider Medical History Medical History Date Comments Hyperlipidemia [...] 04/20/2022 Hypertension/CHF/CAD Annual BMP Blood Test 04/19/2024 COVID-19 Vaccine (7 - Pfizer risk 2023- season) 2024 02/02/2024, 02/24/2023, 01/27/2022, Additional history exists Breast Cancer Screening 05/13/2026 05/13/20 24, 10/14/2022, 05/31/2021, Additional history exists Osteoporosis Screening (Bone Density Screening) 04/19/2034 04/19/2024, 05/31/2021, 05/03/2019 RSV Immunization Adult Patients (1 - 1-dose 75+ series) 2040 Zoster Vaccines Completed 12/18/2021, 05/29/2021 Influenza Vaccine Completed 02/12/2024, , 02/18/2022, Additional [...] age to complete this topic Meningococcal B Vaccine Aged Out No l onger eligible based on patient's age to complete [...] for biopsy. PQRI CPT II 3341F Code 81329, 57152 PQRI 225 CPT II 7025F TISSUE DENSITY: There are scattered areas of fibroglandular density. (BI-RADS category B) IMPRESSION: Benign. BI-RADS CATEGORY: 1 - NEGATIVE RECOMMENDATION: Screening bilateral mammogram is recommended in 1 year. Mammo Location: [facility], [address] [place] [address] -------- FINAL REPORT -------- Dictated By: Tonio Cole Dictated Date: 05/16/2024 08:09 ET Assigned Physician: Tonio Cole Reviewed and Electronically Signed By: Tonio Cole Signed Date: 05/16/2024 08:12 ET Workstation ID: [id number] Transcribed By: Self Edit Transcribed Date: 05/16/2024 08:09 ET Narrative 05/16/2024 8:12 AM EST CLINICAL: The patient is a 58 years Female presenting for routine screening mammography. COMPARISON: Most recently 10/14/2022 and most remotely 04/30/2017. ?? TECHNIQUE: Full-field digital mammography of the breasts bilaterally consisting of tomosynthesis in MLO and CC projection is performed in the proVITALe 2000-D unit. ??Computer aided detection utilizing the [...] MLO and CC projection is performed in theGreenlight Technologiesographe 2000-D unit. Computer aided detection utilizing the All About Baby.ystem was utilized. FINDINGS: The breasts are again [...] for biopsy. PQRI CPT II 3341F Code 36841, 02985 PQRI 225 CPT II 7025F TISSUE DENSITY: There are scattered areas of fibroglandular density.(BI-RADS category B) IMPRESSION: Benign. BI-RADS CATEGORY: 1 - NEGATIVE RECOMMENDATION: Screening bilateral mammogram is recommended in 1 year. Mammo Location: [facility], [address] [place] [address] -------- FINAL REPORT -------- Dictated By: Tonio Cole Dictated Date: 05/16/2024 08:09 ET Assigned Physician: Tonio Cole Reviewed and Electronically Signed By: Tonio Cole Signed Date: 05/16/2024 08:12 ET Workstation ID: [id number] Transcribed By: Self Edit Transcribed Date: 05/16/2024 08:09 ET us Geraldo Rajan MD IMG BI PROCEDURES Final Result * BD Bone Density DXA Axial Skeleton (04/19/2024 2:13 PM EST) Anatomical Region Laterality Modality Wrist, Hip, L-spine Bone Densito metry 04/19/2024 4:10 PM EST Impressions 04/19/2024 4:11 PM EST Osteopenia. ? [id number] -------- FINAL REPORT -------- Dictated By: Bisi Wilson Dictated Date: 04/19/2024 16:10 ET Assigned Physician: Bisi Wilson Reviewed and Electronically Signed By: Bisi Wilson Signed Date: 04/19/2024 16:11 ET Workstation ID: [id number] Transcribed By: Self Edit Transcribed Date: 04/19/2024 16:10 ET Narrative 04/19/2024 4:11 PM EST History: Low estrogen state due to menopause. Current smoker. Comparison: 05/31/21 Findings: Bone densitometry is performed utilizing dual energy x-ray absorptiometry (DXA) in the Banjoigy unit. The lumbar spine and proximal femora [...] utilizing dual energy x-ray absorptiometry(DXA) in the BanjoigEstorian unit. The lumbar spine and proximal femora [...] Osteoporotic 9.5percent Hip 2.3 percent. IMPRESSION: Osteopenia. [id number] -------- FINAL REPORT -------- Dictated By: Bisi Wilson Dictated Date: 04/19/2024 16:10 ET Assigned Physician: Bisi Wilson Reviewed and Electronically Signed By: Bisi Wilson Signed Date: 04/19/2024 16:11 ET Workstation ID: [id number] Transcribed By: Self Edit Transcribed Date: 04/19/2024 16:10 ET Geraldo Rajan MD IMG DXA PROCEDURES Final Result from Last 3 Months or Most Recently Relevant to Health Maintenance Insurance [facility] [employer] Care Teams Micro Computer Data Processor Relationship Specialty Start Date End Date Geraldo Rajan MD [address] [place] [phone] PCP - General Internal Medicine 04/19/24
--- OUTSIDE RECORDS SUMMARY | 2024-09-23 13:45 | XMS_ITS | Patient Health Record ---
Author Organization [facility] [place] Address [address] [place] [address] Care Team Providers Care Senior Accounts Payable Specialist Name Role Phone Mani Guillen MD Primary Care Provider Brittany Loomis Unavailable [phone] Allergies Allergen (clinical drug ingredient) Drug/Non Drug Allergy documented on EMR Reaction Allergy Type Onset Date Status Ticlid Unknown Drug Allergy Active Shellfish (FN) Shellfish-derived Products anaphylaxis Drug Allergy Active Reason For Referral No Information Medications Medication SIG (Take, Route, Frequency, Duration) Notes Start Date End Date Status Vitamin D (Ergocalciferol) 1.25 MG (09681 UT) 1 capsule Orally for 30 day(s) [...] Insured Coverage Start Date Coverage End Date [facility] All Others [id number] [place] [address] [id number] Behzad Saldivar Spouse - patient is the spouse of the insured Medical (General) History Medical History History ICD Code CAD (Cholesterol) Heart disease High blood pressure Warts Chicken pox Transfusions A fib Kidney failure Surgical History Surgery Date(Month/Year) 3 Stents in Heart 10/23/2014 tubal ligation
--- OUTSIDE RECORDS SUMMARY | 2024-09-23 13:45 | XMS_ITS | Clinical Summary ---
Author Organization [facility] Address [address] [place] [address] Phone Care Team Providers Care Bathroom Tiling Professional Name Role Phone Geraldo Rajan MD Primary Care Provider [phone] Allergies Active Allergy Reactions Criticality Noted Date [...] Last Done Comments Breast Cancer Screening 1965 Hepatitis B Vaccine (1 of 3 - 19+ 3-dose series) 08/26 Pneumococcal Vaccine: 50+ Years (1 of 2 - PCV) 985 Colorectal Cancer Screening: Annual FOBT 2014 Colorectal Cancer Screening: Colonoscopy 2014 Colorectal Cancer Screening: Sigmoidoscopy 2014 Influenza Vaccine (Season Ended) 2025 [place] [id number] [facility] Medicaid [facility] Medicaid Care Teams Bathroom Tiling Professional Relationship Specialty Start Date End Date Geraldo Rajan MD [address] [place], [place] PCP - General Internal Medicine 10/30/22
== END 2024-09-23 14:11 | disposition home or self-care (01) ==
LOC: HO.HMCC 13:40
PROVIDERS: PCP Internal Medicine; Visit Provider Internal Medicine
DX: I65.23 Occlusion and stenosis of bilateral carotid arteries (principal); E03.8 Other specified hypothyroidism; I48.0 Paroxysmal atrial fibrillation; E78.9 Disorder of lipoprotein metabolism, unspecified; G47.9 Sleep disorder, unspecified; Z91.09 Other allergy status, other than to drugs and biological substances; K21.9 Gastro-esophageal reflux disease without esophagitis; Z92.29 Personal history of other drug therapy; I25.118 Atherosclerotic heart disease of native coronary artery with other forms of angina pectoris

== ENCOUNTER → 2024-09-23 13:39 | Outpatient (BNVA) | payer OTHER, SELFPAY | PROVIDERS: PCP Internal Medicine; Visit Provider Internal Medicine | DX: I48.91 Unspecified atrial fibrillation (principal); I25.118 Atherosclerotic heart disease of native coronary artery with other forms of angina pectoris; I65.23 Occlusion and stenosis of bilateral carotid arteries; E03.8 Other specified hypothyroidism; I48.0 Paroxysmal atrial fibrillation; E78.9 Disorder of lipoprotein metabolism, unspecified; G47.9 Sleep disorder, unspecified; K21.9 Gastro-esophageal reflux disease without esophagitis; F17.210 Nicotine dependence, cigarettes, uncomplicated; I77.9 Disorder of arteries and arterioles, unspecified; Z92.29 Personal history of other drug therapy; Z91.09 Other allergy status, other than to drugs and biological substances | CPT/HCPCS: 96127; 99212 ==

== ENCOUNTER 2024-10-18 13:54 | Outpatient (REF) | payer OTHER, SELFPAY ==
--- NOTE | ~2024-10-18 | US_ITS ---
EXAMINATION: BILATERAL CAROTID ULTRASOUND WITH DOPPLER HISTORY: I77.9 - Disorder of arteries and arterioles, unspecified COMPARISON: There are no prior studies available for comparison. TECHNIQUE: Real time and Color and Spectral doppler ultrasonography of the carotid and vertebral arteries was performed in multiple planes. FINDINGS: There is mild plaque in the right internal carotid artery and a moderate amount of plaque in the left internal carotid artery. VERTEBRAL FLOW DIRECTION: There is retrograde flow in the right vertebral artery. Normal antegrade flow is seen in the left vertebral artery. PEAK SYSTOLIC VELOCITIES (in cm/sec): RIGHT: CCA: Prox: 65 Dist: 51 ICA: Prox: 93 Mid: 88 Dist: 90 ICA/CCA Ratio: 1.43 ECA: 27 Subclavian artery: 215 Peak ICA end diastolic velocity (EDV): 31 LEFT: CCA: Prox: 97 Dist: 96 ICA: Prox: 216 Mid: 105 Dist: 76 ICA/CCA Ratio: 2.23 ECA: 244 Subclavian artery: 147 Peak ICA end diastolic velocity (EDV): 72 US/US carotid duplex BI IMPRESSION: 1. Findings consistent with 0-49% stenosis of the right internal carotid artery. 2. Findings consistent with 50-79% stenosis of the left internal carotid artery. 3. Retrograde flow in the right vertebral artery suggestive of subclavian steal syndrome. Further workup is recommended. Electronically signed by: Michael Akers MD 10/18/2024 03:05 PM EDT
--- OUTSIDE RECORDS SUMMARY | 2024-10-18 15:39 | XMS_ITS | Clinical Summary ---
Author Organization [facility] Address [address] [place] [address] Care Team Providers Care Chemical Strength Tester Name Role Phone Mani Guillen MD Primary Care Provider [phone] Allergies Active Allergy Reactions Criticality Noted Date [...] Vaccine (1 of 2) 08/27/2015 Influenza Vaccine (Season Ended) 2025 Pneumococcal Vaccine Aged Out No long er eligible based on patient's age to complete this topic RSV Ped < 20 months Aged Out No longe r eligible based on patient's age to complete this topic Care Teams Chemical Strength Tester Relationship Specialty Start Date End Date Mani Guillen MD [address] [place] [id number] PCP - General Internal Medicine 10/30/20
== END 2024-10-18 13:55 | disposition home or self-care (01) ==
LOC: HO.HMGCX 13:54
PROVIDERS: PCP Internal Medicine; Visit Provider Internal Medicine
DX: I77.9 Disorder of arteries and arterioles, unspecified (principal)
CPT/HCPCS: 93880

== ENCOUNTER → 2024-10-18 13:56 | Outpatient (BNV) | payer OTHER, SELFPAY | PROVIDERS: PCP Internal Medicine; Visit Provider Radiology Diagnostic Radiology | DX: I77.9 Disorder of arteries and arterioles, unspecified (principal) | CPT/HCPCS: 93880 ==

== ENCOUNTER 2024-10-20 08:35 | Outpatient (AMB) | payer OTHER, SELFPAY ==
--- OUTSIDE RECORDS SUMMARY | 2024-10-20 08:57 | XMS_ITS | Clinical Summary ---
Author Organization [facility] Address [address] [place] [address] Care Team Providers Care Chief Port Director Name Role Phone Mani Guillen MD Primary Care Provider [phone] Allergies Active Allergy Reactions Criticality Noted Date [...] age to complete this topic Care Teams Chief Port Director Relationship Specialty Start Date End Date Mani Guillen MD [address] [place] [id number] PCP - General Internal Medicine 10/30/20
--- NOTE | 2024-10-20 10:15 | MHC.PC.OV ---
Intake Visit Reasons: results - android Allergies ticlopidine [From Ticlid] Allergy (Verified 09/23/24 13:41) Anaphylaxis seafood Adverse Reaction (Severe, Verified 09/23/24 13:41) Anaphylaxis Medication List - Last Reconciled 10/20/24 by Geraldo Rajan MD amlodipine 5 mg PO QPM apixaban (Eliquis) 5 mg PO BID cholecalciferol (vitamin D3) 125 mcg PO DAILY cyanocobalamin (vitamin B-12) 1,000 mcg PO DAILY 90 days famotidine 20 mg PO DAILY fenofibrate micronized 134 mg PO DAILY isosorbide dinitrate 10 mg PO BID levothyroxine 50 mcg PO DAILY loratadine 10 mg PO DAILY magnesium glycinate 100 mg PO .QHS 90 days metoprolol succinate ER 200 mg PO BEDTIME mirtazapine 15 mg PO QPM pravastatin 40 mg PO DAILY Tobacco use date assessed: 09/23/24 Dental Screening Dental Screen Date: 09/23/24 HPI results - android HPI Details History - The patient is a 59-year-old female presenting for follow-up on carotid ultrasound results. - Ultrasound shows no significant blockage on the right side. - The left side indicates 50-79% stenosis, with last year?s report at 72% stenosis. - No reported symptoms such as neurological symptoms, numbness, weakness, difficulty talking, dizziness, or blurred vision. - Currently taking blood thinner therapy. Medical History: - Carotid artery stenosis Medications: - Blood thinners - Pravastatin 40 mg, taken for cholesterol management - Vitamin B12, taken periodically - Vitamin B, taken daily Problem List - Carotid artery stenosis - Carotid artery stenosis Patient Instructions - Continue taking your blood thinner as prescribed. - Continue pravastatin for cholesterol management. - Take vitamin B12 periodically and vitamin B daily. - Monitor for any neurological symptoms such as numbness, weakness, difficulty talking, dizziness, or blurred vision. - Prepare for appointment with the associate professor of art history in January. Review of Systems - General: No fever no chills - Neurological: No headaches no dizziness - Ear nose throat: No sore throat no hearing difficulty no ear pain - Cardiovascular: No syncope, no chest pain, no palpitations - Gastrointestinal: No nausea vomiting or diarrhea PFSH Medical History CAD (coronary artery disease) History of open arm wound Afib Surgical History H/O excision of mass H/O tubal ligation Family History Sister PTSD (post-traumatic stress disorder) Delusional disorder Crohn's colitis Daughter Bipolar 1 disorder Father Alcohol abuse Social History Housing: House Alcohol intake: current Alcohol intake frequency: 3 or more drinks per day Alcohol type: hard liquor Patient Tobacco Use Status: Current everyday Tobacco user Cigarettes Per Day: 5 e-Cigarette/Vaping Use: Never Used service: No Current occupational status: employed Current occupation: [employer] Current occupational exposures/hazards: No Cognitive needs: No Hearing needs: No Vision needs: Yes Questionnaire Thrive Questionnaire Date Thrive assessed: 09/23/24 SADIA-7 AMB Questionnaire SADIA-7 Date SADIA - 7 assessed: 09/23/24 Source: Developed by Drs. Michael Asher, Naila Freeman, Noah Butts and colleagues, with an educational anel from [employer]. Physical exam (Primary Care) Tobacco/Smoking Status: Tobacco use Status Tobacco use date assessed 09/23/24 09/23/24 13:44 Patient Tobacco Use Status Current everyday Tobacco 09/23/24 13:41 e-Cigarette/Vaping Use Never Used 09/23/24 13:41 Thrive Assessment: Date of Thrive Assessment Date Thrive assessed 09/23/24 09/23/24 13:44 Telehealth Telehealth Telehealth Platform: [facility] Location of provider rendering services: practice address Location of patient: address on file Patient Identification confirmed using: Name, : Yes Telehealth method: voice only Patient verbally consented to treatment: Yes Patient verbally consented to billing insurance company: Yes Patient informed of any privacy concerns related to visit: Yes Minutes spent on Phone/Video with Pt.: 13 Coding Level of Care Code Tele Est Pt Level 3 (39754) Diagnoses Bilateral carotid artery stenosis I65.23 Carotid artery disease type: stenosis Laterality: bilateral Assessment & Plan Assessment & Plan (1) Carotid artery disease: Code(s): I77.9 - Disorder of arteries and arterioles, unspecified Category: Medical Qualifiers: Carotid artery disease type: stenosis Laterality: bilateral Qualified Code(s): I65.23 - Occlusion and stenosis of bilateral carotid arteries Plan History - The patient is a 59-year-old female presenting for follow-up on carotid ultrasound results. - Ultrasound shows no significant blockage on the right side. - The left side indicates 50-79% stenosis, with last year?s report at 72% stenosis. - No reported symptoms such as neurological symptoms, numbness, weakness, difficulty talking, dizziness, or blurred vision. - Currently taking blood thinner therapy. Medical History: - Carotid artery stenosis Medications: - Blood thinners - Pravastatin 40 mg, taken for cholesterol management - Vitamin B12, taken periodically - Vitamin B, taken daily Problem List - Carotid artery stenosis - Carotid artery stenosis Patient Instructions - Continue taking your blood thinner as prescribed. - Continue pravastatin for cholesterol management. - Take vitamin B12 periodically and vitamin B daily. - Monitor for any neurological symptoms such as numbness, weakness, difficulty talking, dizziness, or blurred vision. - Prepare for appointment with the associate professor of art history in January.
== END 2024-10-20 11:32 | disposition home or self-care (01) ==
LOC: HO.HMCC 08:35
PROVIDERS: PCP Internal Medicine; Visit Provider Internal Medicine
DX: I65.23 Occlusion and stenosis of bilateral carotid arteries (principal)

== ENCOUNTER → 2024-10-20 08:35 | Outpatient (BNVA) | payer OTHER, SELFPAY | PROVIDERS: PCP Internal Medicine; Visit Provider Internal Medicine ==

== ENCOUNTER 2024-12-27 12:39 | Outpatient (AMB) | payer OTHER, SELFPAY ==
--- NOTE | 2024-12-27 12:55 | A.OFFPC_ITS ---
Vital Signs 12/27/24 12:56 Height 4 ft 11 in Weight 93 lb BMI 18.8 BP 140/72 H Blood Pressure Location Rt brachial Position Sitting Pulse 90 Pulse Source Pulse Oximeter Pulse Oximetry (%) 95 Intake Visit Reasons: 3 months f/up Allergies ticlopidine (From Ticlid) Allergy (Verified 12/27/24 12:56) Anaphylaxis seafood Adverse Reaction (Severe, Verified 12/27/24 12:56) Anaphylaxis Medication List - Last Reconciled 12/27/24 by Geraldo Rajan MD amlodipine 5 mg PO QPM apixaban (Eliquis) 5 mg PO BID cholecalciferol (vitamin D3) 125 mcg PO DAILY cyanocobalamin (vitamin B-12) 1,000 mcg PO DAILY 90 days famotidine 20 mg PO DAILY fenofibrate micronized 134 mg PO DAILY isosorbide dinitrate 10 mg PO BID levothyroxine 50 mcg PO DAILY loratadine 10 mg PO DAILY magnesium glycinate 100 mg PO .QHS 90 days metoprolol succinate ER 200 mg PO BEDTIME mirtazapine 15 mg PO QPM pravastatin 40 mg PO DAILY Tobacco use date assessed: 09/23/24 Dental Screening Dental Screen Date: 09/23/24 HPI 3 months f/up HPI Details Chief Complaint The patient reports experiencing sleepwalking episodes over the past two months. History The patient is a 59 year old female presenting with sleepwalking. Sleepwalking: - The patient reports a history of sleep walking dating back to childhood, with frequent episodes during that time. - The recent episodes have occurred appr oximately three times in the last two months. - Sleepwalking resurfaced following the initiation of metazepine, and it is suggested this may be related. - The patient did not report any injurie s or significant disturbances due to sleepwalking episodes. Atrial Fibrillation: - The patient is currently taking Eliqui s to manage atrial fibrillation. - She has a pending appointment with a c ardiologist. Hypertension: - Currently managed on metoprolol and am lodipine. - Blood pressure reading in the office t silke was 140/70 mmHg. - The patient was previously monitoring blood pressure at home, but her blood pressure device was damaged. Medical History: - History of high Vitamin B12 levels. Medications: - Eliquis for atrial fibrillation - Metoprolol for hypertension - Amlodipine for hypertension - Pravastatin - Famotidine - Levothyroxine 50 - Loratadine - Fenofibrate - Magnesium supplements - Vitamin B12 (occasionally) Social History: - The patient smokes approximately 9 cig arettes per day. - The patient has acquired new dogs, whdeyvi ch has impacted her previous ability to monitor blood pressure due to equipment damage. Problem List - Sleepwalking - Atrial Fibrillation - Hypertension - Vitamin B12 level management - Osteopenia - Tobacco use Diagnostic results - Recent mammogram and bone density test s were noted, done at [facility]. The mammogram shows no evidence of malignancy. Bone density indicates osteopenia with a score of -2.1. [place] of Care - Follow-up appointments with a cardiolo gist scheduled. - An appointment with a cylinder press operator apprentice, luis tong the patient intends to cancel due to stable kidney function. Assessment and Plan 1. Sleepwalking - Suspect metazepine contributing to sle epwalking episodes; discontinue use. - Recommend melatonin 5 mg to 10 mg if n eeded for sleep onset, with caution it doesn?t sustain sleep. 2. Atrial Fibrillation - Continue Eliquis; follow up with cardi ologist scheduled next month. - Maintain consistent monitoring through regular cardiac follow-ups. 3. Hypertension - Maintain antihypertensive regimen with metoprolol and amlodipine. - Recommend obtaining a new blood pressu re device for home monitoring. 4. Osteopenia - Encourage calcium-rich foods and weigh t-bearing exercises. - Monitor bone density in follow-up visi ts and continue Vitamin D supplementation. 5. Tobacco use - Advise smoking cessation, note the inc rease from 5 to 9 cigarettes a day. Patient Instructions - Stop metazepine to assess changes in s leepwalking behavior. - Use melatonin (5-10 mg) as needed for sleep onset. - Get a new blood pressure monitor and r esume home monitoring. - Include more calcium-rich foods and en lydia in weight-bearing exercises. - Attempt to reduce smoking, working gra dually towards quitting. - Return for scheduled tests and follow- up appointments. Review of Systemses. General: No fever no chills neurological: No headaches no dizziness ear nose throat: No sore throat no hearing difficulty no ear pain cardiovascular: No syncope, no chest pain, no palpitations gastrointestinal: No nausea vomiting or diarrhea endocrine: No polyuria polydipsia no heat intolerance genitourinary: No dysuria skin: No new complaints Physical Exam general: No acute distress HEENT: No acute findings neck: Supple respiratory system: Able to talk in full sentences, no audible wheeze no stridor cardiovascular: S1-S2 gastrointestinal: No pain extremities: No new findings TRANSFER KNITTER: Alert awake oriented x3 motor sensory intact skin: Normal turgor PFSH Medical History CAD (coronary artery disease) History of open arm wound Afib Surgical History H/O excision of mass H/O tubal ligation Family History Sister PTSD (post-traumatic stress disorder) Delusional disorder Crohn's colitis Daughter Bipolar 1 disorder Father Alcohol abuse Social History Housing: House Alcohol intake: current Alcohol intake frequency: 3 or more drinks per day Alcohol type: hard liquor Patient Tobacco Use Status: Current everyday Tobacco user Cigarettes Per Day: 5 e-Cigarette/Vaping Use: Never Used service: No Current occupational status: employed Current occupation: [employer] Current occupational exposures/hazards: No Cognitive needs: No Hearing needs: No Vision needs: Yes Questionnaire Thrive Questionnaire Date Thrive assessed: 06/22/24 I am a: Patient What is your living situation today?: I have a steady place to live Within the past 12 months, did the food you bought not last and you didn't have the money to get more?: Never true Within the past 12 months, did you worry whether your food would run out before you got money to buy more?: Sometimes True Do you have trouble paying for medicines?: No Do you have trouble getting transportation to medical appointments?: No Do you have trouble paying your heating and electricity bill?: No Do you have trouble taking care of your child, family member or friend?: No Do you have trouble with day-to-day activities such as bathing, preparing meals, shopping, managing finances, etc.?: No Are you currently unemployed and looking for a job?: No Are you interested in more education?: No Please select the resources that you would like help with: None Currently or been in a relationship where the following occur: No concerns reported THRIVE Score: 1 SADIA-7 AMB Questionnaire SADIA-7 Date SADIA - 7 assessed: 09/23/24 Source: Developed by Drs. Michael Asher, Naila Freeman, Noah Butts and colleagues, with an educational anel from [employer]. Physical exam (Primary Care) Vital Signs: Last Vital Signs Pulse 90 12/27/24 12:56 BP 140/72 H 12/27/24 12:56 Pulse Ox 95 12/27/24 12:56 BMI result Body Mass Index 18.8 Tobacco/Smoking Status: Tobacco use Status Tobacco use date assessed 09/23/24 12/27/24 12:56 Patient Tobacco Use Status Current everyday Tobacco 12/27/24 12:56 e-Cigarette/Vaping Use Never Used 12/27/24 12:56 Thrive Assessment: Date of Thrive Assessment Date Thrive assessed 06/22/24 12/27/24 12:56 Currently or been in a relationship where the following occur: No concerns reported Coding Level of Care Code Est Pt Level 4 (34968) Complex EM visit Add On G2211 Diagnoses Sleep walking disorder F51.3 Bilateral carotid artery stenosis I65.23 Carotid artery disease type: stenosis Laterality: bilateral Other specified hypothyroidism E03.8 Paroxysmal atrial fibrillation I48.0 Atrial fibrillation type: paroxysmal Lipid disorder E78.9 Difficulty sleeping G47.9 Chronic GERD K21.9 Hx of senior living use of blood thinners Z92.29 Coronary artery disease of [place] artery of [place] heart with stable angina pe ctoris I25.118 Coronary Disease-Associated Artery/Lesion type: [place] artery [place] vs. transplanted heart: [place] heart Associated angina: with stable angina Assessment & Plan Assessment & Plan (1) Sleep walking disorder: Code(s): F51.3 - Sleepwalking [somnambulism] Category: Medical (2) Carotid artery disease: Code(s): I77.9 - Disorder of arteries and arterioles, unspecified Category: Medical Qualifiers: Carotid artery disease type: stenosis Laterality: bilateral Qualified Code(s): I65.23 - Occlusion and stenosis of bilateral carotid arteries (3) Other specified hypothyroidism: Code(s): E03.8 - Other specified hypothyroidism Category: Medical (4) Afib: Code(s): I48.91 - Unspecified atrial fibrillation Category: Medical Qualifiers: Atrial fibrillation type: paroxysmal Qualified Code(s): I48.0 - Paroxysmal atrial fibrillation (5) Lipid disorder: Code(s): E78.9 - Disorder of lipoprotein metabolism, unspecified Category: Medical (6) Difficulty sleeping: Code(s): G47.9 - Sleep disorder, unspecified Category: Medical (7) Chronic GERD: Code(s): K21.9 - Gastro-esophageal reflux disease without esophagitis Category: Medical (8) Hx of senior living use of blood thinners: Code(s): Z92.29 - Personal history of other drug therapy Category: Medical (9) CAD (coronary artery disease): Comment: with three stents Code(s): I25.10 - Atherosclerotic heart disease of [place] coronary artery without angina pectoris Category: Medical Qualifiers: Coronary Disease-Associated Artery/Lesion type: [place] artery [place] vs. transplanted heart: [place] heart Associated angina: with stable angina Qualified Code(s): I25.118 - Atherosclerotic heart disease of [place] coronary artery with other forms of angina pectoris Plan Chief Complaint The patient reports experiencing sleepwalking episodes over the past two months. History The patient is a 59 year old female presenting with sleepwalking. Sleepwalking: - The patient reports a history of sleepwalking dating back to childhood, with frequent episodes during that time. - The recent episodes have occurred approximately three times in the last two months. - Sleepwalking resurfaced following the initiation of metazepine, and it is suggested this may be related. - The patient did not report any injuries or significant disturbances due to sleepwalking episodes. Atrial Fibrillation: - The patient is currently taking Eliquis to manage atrial fibrillation. - She has a pending appointment with a molder helper. Hypertension: - Currently managed on metoprolol and amlodipine. - Blood pressure reading in the office today was 140/70 mmHg. - The patient was previously monitoring blood pressure at home, but her blood pressure device was damaged. Medical History: - History of high Vitamin B12 levels. Medications: - Eliquis for atrial fibrillation - Metoprolol for hypertension - Amlodipine for hypertension - Pravastatin - Famotidine - Levothyroxine 50 - Loratadine - Fenofibrate - Magnesium supplements - Vitamin B12 (occasionally) Social History: - The patient smokes approximately 9 cigarettes per day. - The patient has acquired new dogs, which has impacted her previous ability to monitor blood pressure due to equipment damage. Problem List - Sleepwalking - Atrial Fibrillation - Hypertension - Vitamin B12 level management - Osteopenia - Tobacco use Diagnostic results - Recent mammogram and bone density tests were noted, done at [facility]. The mammogram shows no evidence of malignancy. Bone density indicates osteopenia with a score of -2.1. [place] of Care - Follow-up appointments with a molder helper scheduled. - An appointment with a cylinder press operator apprentice, which the patient intends to cancel due to stable kidney function. Assessment and Plan 1. Sleepwalking - Suspect metazepine contributing to sleepwalking episodes; discontinue use. - Recommend melatonin 5 mg to 10 mg if needed for sleep onset, with caution it doesn?t sustain sleep. 2. Atrial Fibrillation - Continue Eliquis; follow up with molder helper scheduled next month. - Maintain consistent monitoring through regular cardiac follow-ups. 3. Hypertension - Maintain antihypertensive regimen with metoprolol and amlodipine. - Recommend obtaining a new blood pressure device for home monitoring. 4. Osteopenia - Encourage calcium-rich foods and weight-bearing exercises. - Monitor bone density in follow-up visits and continue Vitamin D supplementation. 5. Tobacco use - Advise smoking cessation, note the increase from 5 to 9 cigarettes a day. Patient Instructions - Stop metazepine to assess changes in sleepwalking behavior. - Use melatonin (5-10 mg) as needed for sleep onset. - Get a new blood pressure monitor and resume home monitoring. - Include more calcium-rich foods and engage in weight-bearing exercises. - Attempt to reduce smoking, working gradually towards quitting. - Return for scheduled tests and follow-up appointments.
[2024-12-27 12:56] VITALS: BP 140/72; PULSE 90; O2SAT 95; BMI 18.8
--- OUTSIDE RECORDS SUMMARY | 2024-12-27 13:21 | XMS_ITS | Clinical Summary ---
Author Organization [facility] Address [address] [place] [address] Care Team Providers Care Novelty Dipper Name Role Phone Mani Guillen MD Primary Care Provider [phone] Allergies Active Allergy Reactions Criticality Noted Date [...] 78 01/03/2021 2:46 PM EDT Temperature 36.8 C (98.2 F) 01/03/2021 2:46 PM EDT Respiratory Rate - - Oxygen Saturation 100% [...] (1 of 2) 08/27/2015 Influenza Vaccine (#1) 2025 Pneumococcal Vaccine Aged Out No long er eligible based on patient's age to complete this topic RSV Ped < 20 months Aged Out No longe r eligible based on patient's age to complete this topic Care Teams Novelty Dipper Relationship Specialty Start Date End Date Mani Guillen MD [address] [place] [id number] PCP - General Internal Medicine 10/30/20
--- OUTSIDE RECORDS SUMMARY | 2024-12-27 13:21 | XMS_ITS | Patient Health Record ---
[facility] [place] Address [address] [place] [address] Care Team Providers Care Videotape Operator Name Role Phone Mani Guillen MD Primary Care Provider Brittany Loomis Unavailable [phone] Allergies Allergen (clinical drug ingredient) Drug/Non Drug Allergy documented on EMR Reaction Allergy Type Onset Date Status Ticlid Unknown Drug Allergy Active Shellfish (FN) Shellfish-derived Products anaphylaxis Drug Allergy Active Reason For Referral No Information Medications Medication SIG (Take, Route, Frequency, Duration) Notes Start Date End Date Status Vitamin D (Ergocalciferol) 1.25 MG (26290 UT) 1 capsule Orally; Duration: 30 day(s) Active FLUoxetine HCl 10 MG 1 capsule Orally On ce a day; Duration: 30 day(s) Not-Taking Pravastatin Sodium 40 MG 1 tablet Orally Once a day; Duration: 30 day(s) Active Levothyroxine Sodium 50 MCG 1 tablet in the morning on an empty stomach Orally Once a day; Duration: 30 day(s) Active Eliquis 5 MG as directed Orally Active Losartan Potassium 100 MG 1 tablet Orall y Once a day; Duration: 30 day(s) Active Metoprolol Succinate 200 MG 1 capsule Orally Once a day; Duration: 30 day(s) Active Fenofibrate 134 MG 1 capsule with a james l Orally Once a day; Duration: 30 day(s) Active Loratadine 10 MG 1 tablet Orally Once a day; Duration: 30 day(s) Active Famotidine 20 MG 1 tablet at bedtime as needed Orally Once a day; Duration: 30 day(s) Active Social History Tobacco Use: [...] Insured Coverage Start Date Coverage End Date [facility] All Others [address] [place] [address] [id number] 7 Behzad Saldivar Spouse - patient is the spouse of the insured Medical (General) History Medical History History ICD Code CAD (Cholesterol) Heart disease High blood pressure Warts Chicken pox Transfusions A fib Kidney failure Surgical History Surgery Date(Month/Year) 3 Stents in Heart 10/23/2014 tubal ligation
--- OUTSIDE RECORDS SUMMARY | 2024-12-27 13:22 | XMS_ITS | Clinical Summary ---
Author Organization [facility] Address [address] [place] [address] Phone Care Team Providers Care Office Helper Clerical Name Role Phone Geraldo Rajan MD Primary Care Provider [phone] Medical History Medical History Date Comments Hyperlipidemia [...] 1984 Cervical Cancer Screening: Pap Smear 1986 Pneumococcal Vaccine: 50+ Years (1 of 1 - PCV) 08/27/2015 Cholesterol Screening (Lipid Panel) 04/20/2022 Colorectal Cancer Screening: Colonoscopy 04/20/2022 HIV Screening 04/20/2022 Hepatitis C Screening 04/20/2022 Social Influencers of Health Screening 04/20/2022 Hypertension/CHF/CAD Annual BMP Blood Test 04/19/2024 Depression Screening 05/18/2024 Influenza Vaccine (#1) 2025 , 02/27/2023, 02/18/2022, Additional history exists Breast Cancer Screening 05/13/2026 05/13/20 24, 10/14/2022, 05/31/2021, Additional history exists Osteoporosis Screening (Bone Density Screening) 04/19/2034 04/19/2024, 05/31/2021, 05/03/2019 RSV Immunization Adult Patients (1 - 1-dose 75+ series) 2040 Zoster Vaccines Completed 12/18/2021, 05/29/2021 COVID-19 Vaccine Completed 02/02/2024, 02/2023, 01/27/2022, Additional history exists HIB Vaccines Aged Out [...] for biopsy. PQRI CPT II 3341F Code 10970, 50684 PQRI 225 CPT II 7025F TISSUE DENSITY: There are scattered areas of fibroglandular density. (BI-RADS category B) IMPRESSION: Benign. BI-RADS CATEGORY: 1 - NEGATIVE RECOMMENDATION: Screening bilateral mammogram is recommended in 1 year. Mammo Location: [facility], [address] [place] [address] -------- FINAL REPORT -------- Dictated By: Tonio Cole Dictated Date: 05/16/2024 08:09 ET Assigned Physician: Tonio Cole Reviewed and Electronically Signed By: Tonio Cole Signed Date: 05/16/2024 08:12 ET Workstation ID: [id number] Transcribed By: Self Edit Transcribed Date: 05/16/2024 08:09 ET Narrative 05/16/2024 8:12 AM EST CLINICAL: The patient is a 58 years Female presenting for routine screening mammography. COMPARISON: Most recently 10/14/2022 and most remotely 04/30/2017. TECHNIQUE: Full-field digital mammography of the breasts bilaterally consisting of tomosynthesis in MLO and CC projection is performed in the [employer] (formerly [employer])e 2000-D unit. Computer aided detection utilizing the iCAD system was utilized. FINDINGS: The breasts are again seen to be composed of a combination of fatty and fibroglandular elements. There is no cluster of microcalcifications, mass, or [...] MLO and CC projection is performed in theEasy Iceographe 2000-D unit. Computer aided detection utilizing the TCZ Holdingsystem was utilized. FINDINGS: The breasts are again [...] for biopsy. PQRI CPT II 3341F Code 63120, 14503 PQRI 225 CPT II 7025F TISSUE DENSITY: There are scattered areas of fibroglandular density.(BI-RADS category B) IMPRESSION: Benign. BI-RADS CATEGORY: 1 - NEGATIVE RECOMMENDATION: Screening bilateral mammogram is recommended in 1 year. Mammo Location: [facility], [address] [place] [address] -------- FINAL REPORT -------- Dictated By: Tonio Cole Dictated Date: 05/16/2024 08:09 ET Assigned Physician: Tonio Cole Reviewed and Electronically Signed By: Tonio Cole Signed Date: 05/16/2024 08:12 ET Workstation ID: [id number] Transcribed By: Self Edit Transcribed Date: 05/16/2024 08:09 ET us Geraldo Rajan MD IMG BI PROCEDURES Final Result * BD Bone Density DXA Axial Skeleton (04/19/2024 2:13 PM EST) Anatomical Region Laterality Modality Wrist, Hip, L-spine Bone Densito metry 04/19/2024 4:10 PM EST Impressions 04/19/2024 4:11 PM EST Osteopenia. [id number] -------- FINAL REPORT -------- Dictated By: Bisi Wilson Dictated Date: 04/19/2024 16:10 ET Assigned Physician: Bisi Wilson Reviewed and Electronically Signed By: Bisi Wilson Signed Date: 04/19/2024 16:11 ET Workstation ID: [id number] Transcribed By: Self Edit Transcribed Date: 04/19/2024 16:10 ET Narrative 04/19/2024 4:11 PM EST History: Low estrogen state due to menopause. Current smoker. Comparison: 05/31/21 Findings: Bone densitometry is performed utilizing dual energy x-ray absorptiometry (DXA) in the Zentricigy unit. The lumbar spine and proximal femora [...] be a reflection of sclerotic degenerative changes. The detailed DEXA report will be mailed to the referring physician's office. DualFemur FRAX: 10-year Probability of Fracture: Major Osteoporotic 9.5 percent Hip 2.3 percent. Procedure Note Bisi Wilson MD - 04/19/2024 History: Low estrogen state due to menopause. Current smoker. Comparison: 05/31/21 Findings: Bone densitometry is performed utilizing dual energy x-ray absorptiometry(DXA) in the [employer] Prodigy unit. The lumbar spine and proximal [...] Osteoporotic 9.5percent Hip 2.3 percent. IMPRESSION: Osteopenia. [id number] -------- FINAL REPORT -------- Dictated By: Bisi Wilson Dictated Date: 04/19/2024 16:10 ET Assigned Physician: Bisi Wilson Reviewed and Electronically Signed By: Bisi Wilson Signed Date: 04/19/2024 16:11 ET Workstation ID: [id number] Transcribed By: Self Edit Transcribed Date: 04/19/2024 16:10 ET Geraldo Rajan MD IMG DXA PROCEDURES Final Result from Last 3 Months or Most Recently Relevant to Health Maintenance Insurance [facility] [employer] Care Teams Office Helper Clerical Relationship Specialty Start Date End Date Geraldo Rajan MD [address] [facility] [place] [address] PCP - General Internal Medicine 04/19/24
--- OUTSIDE RECORDS SUMMARY | 2024-12-27 13:22 | XMS_ITS | Clinical Summary ---
Author Organization [facility] Address [address] [place] [address] Phone Care Team Providers Care Aquarist Name Role Phone Geraldo Rajan MD Primary Care Provider Allergies Active Allergy Reactions Criticality Noted Date [...] Cancer Screening: Sigmoidoscopy 2014 Influenza Vaccine (#1) 2025 Insurance [facility] Medicaid [facility] Medicaid Care Teams Aquarist Relationship Specialty Start Date End Date Geraldo Rajan MD [address] [place], [place] PCP - General Internal Medicine 10/30/22
== END 2024-12-27 13:18 | disposition home or self-care (01) ==
LOC: HO.HMCC 12:40
PROVIDERS: PCP Internal Medicine; Visit Provider Internal Medicine
DX: F51.3 Sleepwalking [somnambulism] (principal); I65.23 Occlusion and stenosis of bilateral carotid arteries; E03.8 Other specified hypothyroidism; I48.0 Paroxysmal atrial fibrillation; E78.9 Disorder of lipoprotein metabolism, unspecified; G47.9 Sleep disorder, unspecified; K21.9 Gastro-esophageal reflux disease without esophagitis; Z92.29 Personal history of other drug therapy; I25.118 Atherosclerotic heart disease of native coronary artery with other forms of angina pectoris

== ENCOUNTER → 2024-12-27 12:39 | Outpatient (BNVA) | payer OTHER, SELFPAY | PROVIDERS: PCP Internal Medicine; Visit Provider Internal Medicine | DX: F51.3 Sleepwalking [somnambulism] (principal); I65.23 Occlusion and stenosis of bilateral carotid arteries; E03.8 Other specified hypothyroidism; I48.91 Unspecified atrial fibrillation; I10 Essential (primary) hypertension; M85.80 Other specified disorders of bone density and structure, unspecified site; I48.0 Paroxysmal atrial fibrillation; E78.9 Disorder of lipoprotein metabolism, unspecified; G47.9 Sleep disorder, unspecified; K21.9 Gastro-esophageal reflux disease without esophagitis; I25.118 Atherosclerotic heart disease of native coronary artery with other forms of angina pectoris; F17.210 Nicotine dependence, cigarettes, uncomplicated; Z71.6 Tobacco abuse counseling; Z92.29 Personal history of other drug therapy | CPT/HCPCS: 99212 ==

== ENCOUNTER 2024-12-30 12:26 | Outpatient (REF) | payer OTHER, SELFPAY ==
--- OUTSIDE RECORDS SUMMARY | 2024-12-30 12:28 | XMS_ITS | Patient Health Record ---
Author Organization [facility] [place] Address [address] [place] [address] Care Team Providers Care Post Framer Name Role Phone Mani Guillen MD Primary Care Provider Brittany Loomis Unavailable [phone] Allergies Allergen (clinical drug ingredient) Drug/Non Drug Allergy documented on EMR Reaction Allergy Type Onset Date Status Ticlid Unknown Drug Allergy Active Shellfish (FN) Shellfish-derived Products anaphylaxis Drug Allergy Active Reason For Referral No Information Medications Medication SIG (Take, Route, Frequency, Duration) Notes Start Date End Date Status Vitamin D (Ergocalciferol) 1.25 MG (11993 UT) 1 capsule Orally; Duration: 30 day(s) [...] Insured Coverage Start Date Coverage End Date [facility] All Others [address] [place] [address] [phone] [id number] 7 Behzad Saldivar Spouse - patient is the spouse of the insured Medical (General) History Medical History History ICD Code CAD (Cholesterol) Heart disease High blood pressure Warts Chicken pox Transfusions A fib Kidney failure Surgical History Surgery Date(Month/Year) 3 Stents in Heart 10/23/2014 tubal ligation
--- OUTSIDE RECORDS SUMMARY | 2024-12-30 12:28 | XMS_ITS | Clinical Summary ---
Author Organization [facility] Address [address] [place] [address] Care Team Providers Care Registration Officer Name Role Phone Mani Guillen MD Primary Care Provider [phone] Allergies Active Allergy Reactions Criticality Noted Date [...] age to complete this topic Care Teams Registration Officer Relationship Specialty Start Date End Date Mani Guillen MD [address] [place] [address] PCP - General Internal Medicine 10/30/20
--- OUTSIDE RECORDS SUMMARY | 2024-12-30 12:28 | XMS_ITS | Clinical Summary ---
Author Organization [facility] Address [address] [place] [address] Phone Care Team Providers Care Title Search Manager Name Role Phone Geraldo Rajan MD Primary [...] Sigmoidoscopy 2014 Influenza Vaccine (#1) 2025 Insurance [facility] Medicaid [facility] Medicaid Care Teams Title Search Manager Relationship Specialty Start Date End Date Geraldo Rajan MD [address] [place], [place] PCP - General Internal Medicine 10/30/22
--- OUTSIDE RECORDS SUMMARY | 2024-12-30 12:28 | XMS_ITS | Clinical Summary ---
Author Organization [facility] Address [address] [place] [address] Phone Care Team Providers Care Mechanic Helper Name Role Phone Geraldo Rajan MD Primary Care Provider [phone] Medical History Medical History Date Comments Hyperlipidemia [...] for biopsy. PQRI CPT II 3341F Code 03461, 86553 PQRI 225 CPT II 7025F TISSUE DENSITY: There are scattered areas of fibroglandular density. (BI-RADS category B) IMPRESSION: Benign. BI-RADS CATEGORY: 1 - NEGATIVE RECOMMENDATION: Screening bilateral mammogram is recommended in 1 year. Mammo Location: [facility], [address] [place] [address] -------- FINAL REPORT -------- Dictated By: Tonio Cole Dictated Date: 05/16/2024 08:09 ET Assigned Physician: Tonio Cole Reviewed and Electronically Signed By: Tonio Cole Signed Date: 05/16/2024 08:12 ET Workstation ID: [id number] Transcribed By: Self Edit Transcribed Date: 05/16/2024 08:09 ET Narrative 05/16/2024 8:12 AM EST CLINICAL: The patient is a 58 years Female presenting for routine screening mammography. COMPARISON: Most recently 10/14/2022 and most remotely 04/30/2017. TECHNIQUE: Full-field digital mammography of the breasts bilaterally consisting of tomosynthesis in MLO and CC projection is performed in the [employer] 2000-D unit. Computer aided detection utilizing the [...] MLO and CC projection is performed in theGLWL Researchographe 2000-D unit. Computer aided detection utilizing the Kollabor[employer]stem was utilized. FINDINGS: The breasts are again [...] for biopsy. PQRI CPT II 3341F Code 46383, 51636 PQRI 225 CPT II 7025F TISSUE DENSITY: There are scattered areas of fibroglandular density.(BI-RADS category B) IMPRESSION: Benign. BI-RADS CATEGORY: 1 - NEGATIVE RECOMMENDATION: Screening bilateral mammogram is recommended in 1 year. Mammo Location: [facility], [address] [place] [address] -------- FINAL REPORT -------- Dictated By: Tonio Cole Dictated Date: 05/16/2024 08:09 ET Assigned Physician: Tonio Cole Reviewed and Electronically Signed By: Tonio Cole Signed Date: 05/16/2024 08:12 ET Workstation ID: [id number] Transcribed By: Self Edit Transcribed Date: 05/16/2024 08:09 ET us Geraldo Rajan MD IMG BI PROCEDURES Final Result * BD Bone Density DXA Axial Skeleton (04/19/2024 2:13 PM EST) Anatomical Region Laterality Modality Wrist, Hip, L-spine Bone Densito metry 04/19/2024 4:10 PM EST Impressions 04/19/2024 4:11 PM EST Osteopenia. [id number] -------- FINAL REPORT -------- Dictated By: Bisi Wilson Dictated Date: 04/19/2024 16:10 ET Assigned Physician: Bisi Wilson Reviewed and Electronically Signed By: Bisi Wilson Signed Date: 04/19/2024 16:11 ET Workstation ID: [id number] Transcribed By: Self Edit Transcribed Date: 04/19/2024 16:10 ET Narrative 04/19/2024 4:11 PM EST History: Low estrogen state due to menopause. Current smoker. Comparison: 05/31/21 Findings: Bone densitometry is performed utilizing dual energy x-ray absorptiometry (DXA) in the [employer] Labsigy unit. The lumbar spine and proximal femora [...] utilizing dual energy x-ray absorptiometry(DXA) in the [employer] Prodigy unit. The lumbar spine and proximal [...] Osteoporotic 9.5percent Hip 2.3 percent. IMPRESSION: Osteopenia. 39126 -------- FINAL REPORT -------- Dictated By: Bisi Wilson Dictated Date: 04/19/2024 16:10 ET Assigned Physician: Bisi Wilson Reviewed and Electronically Signed By: Bisi Wilson Signed Date: 04/19/2024 16:11 ET Workstation ID: [id number] Transcribed By: Self Edit Transcribed Date: 04/19/2024 16:10 ET Geraldo Rajan MD IMG DXA PROCEDURES Final Result from Last 3 Months or Most Recently Relevant to Health Maintenance Insurance [facility] [employer] Care Teams Mechanic Helper Relationship Specialty Start Date End Date Geraldo Rajan MD [address] [facility] [place] [phone] PCP - General Internal Medicine 04/19/24
[2024-12-30 16:22] LABS: MANUAL DIFF FLAG NO
[2024-12-30 16:35] LABS: Hematocrit 39.7 % (37.0-47.0); Hemoglobin 13.6 g/dl (12.0-16.0); Imm Gran Abs Auto 0.01 X10*3/uL (0.00-0.03); Imm Gran Pct Auto 0.2 % (0.0-0.4); Lymphocytes Absolute Auto 1.3 X10*3/uL (1.2-4.9); Mean Corpuscular HGB Conc 34.3 g/dl (31.0-35.0); Mean Corpuscular Hemoglobin 33.5 pg (27.0-33.0); Mean Corpuscular Volume 97.8 fL (80.0-98.0); NRBC Abs Auto 0.000 X10*3/uL (0.0-0.012); NRBC Pct Auto 0.0 /100WBC (0.0-0.2); Platelet Count 189 X10*3/uL (160-400); Red Blood Count 4.06 X10*6/uL (4.20-5.50); White Blood Count 4.8 X10*3/uL (4.8-10.8)
[2024-12-30 17:08] LABS: Alanine Aminotransferase 24 U/L (0-31); Albumin Level 4.6 g/dL (3.5-5.0); Alkaline Phosphatase 50 U/L (39-117); Anion Gap 15 (12-20); Aspartate Amino Transferase 53 U/L (5-31); Blood Urea Nitrogen 7 mg/dL (9-16); Calcium 9.8 mg/dL (8.4-10.2); Carbon Dioxide 27 mmol/L (22-29); Chloride 99 mmol/L (96-108); Cholesterol 134 mg/dL (<200); Estimated Glomerular Filt Rate > 60; HDL Cholesterol 58 mg/dL (>40); Potassium 4.2 mmol/L (3.3-5.1); Sodium 137 mmol/L (135-145); Total Protein 7.2 g/dL (6.5-8.0); Triglycerides 114 mg/dL (<150)
[2024-12-30 17:20] LABS: Vitamin B12 885 pg/mL (200-900)
[2025-01-03 16:08] LABS: Vitamin D 25-OH, D2 <4 ng/mL; Vitamin D 25-OH, D3 104 ng/mL; Vitamin D 25-OH, Total 104 ng/mL (30-100)
== END 2024-12-30 12:27 | disposition home or self-care (01) ==
LOC: HO.HMGCLDS 12:26
PROVIDERS: PCP Internal Medicine; Visit Provider Internal Medicine
DX: K21.9 Gastro-esophageal reflux disease without esophagitis (principal); E03.8 Other specified hypothyroidism; E78.9 Disorder of lipoprotein metabolism, unspecified; G47.9 Sleep disorder, unspecified; Z92.29 Personal history of other drug therapy; Z91.09 Other allergy status, other than to drugs and biological substances
CPT/HCPCS: 36415; 80053; 80061; 82306; 82607; 84443; 85025

== ENCOUNTER 2025-01-17 12:28 | Outpatient (AMB) | payer OTHER, SELFPAY ==
--- NOTE | 2025-01-17 12:43 | MHC.OFFVIS ---
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/Heart Disease Intake Note: New patient insurance change was at [facility] history CAD with stents has had afib almost 20 years and carotid stenous 71 % as of last check Drop Wire Builder Required: No Allergies ticlopidine (From Ticlid) Allergy (Verified 12/27/24 12:56) Anaphylaxis seafood Adverse Reaction (Severe, Verified 12/27/24 12:56) Anaphylaxis Medication List - Last Reconciled 01/17/25 by Meliton Flores MD amlodipine 5 mg PO QPM apixaban (Eliquis) 5 mg PO BID famotidine 20 mg PO DAILY fenofibrate micronized 134 mg PO DAILY isosorbide dinitrate 10 mg PO BID levothyroxine 50 mcg PO DAILY loratadine 10 mg PO DAILY metoprolol succinate ER 200 mg PO BEDTIME pravastatin 40 mg PO DAILY HPI Comments Details: I was consulted to see Harman in cardiology consultation to his gym her cardiovascular care. She has to switch her cardiology care due to change in his insurance and inability to follow with her quality assurance auditor at [facility]. Patient is a 59 year female with premature coronary disease with 1st myocardial infarction at age of 32 which ended up getting bare metal stent to the RCA, was told that she did not suffer much damage. Symptoms at that time included significant jaw pain associated bilateral arm numbness and chest pressure associated with nausea. She immediately realized that something was wrong and she came to the emergency room. Following that she did well for about 17 years and subsequently in 2014 had recurrent episodes of chest discomfort which was different than the initial pain and she ended up going to the [facility] and underwent 2 drug-eluting stent placement to the RCA at the site of her prior stent placement. She subsequently has been on oral anticoagulation with Eliquis and currently maintained on that. She has had no recurrent anginal sounding chest discomfort. She has intolerance to higher dose of statin, currently taking pravastatin 40 mg and tolerating it with last LDL of 54 mg/dL which is well optimized. Unfortunately she continues to smoke. She also has heavy alcohol use. She at age of 40 was diagnose with atrial fibrillation with symptoms of rapid heart rate and not feeling well. She would not have any chest pain at that time. Since then she has been maintained on oral anticoagulation currently on metoprolol to 100 mg daily which she is tolerating. She says till she gets intermittent episodes of atrial fibrillation for which she then relaxes and symptoms go away. These are sporadic. The symptoms happen and are triggered by stress especially when she has not slept well overnight. She denies any heart failure symptoms. Denies any lightheadedness, syncope. She has elevated blood pressure on presentation today but says she has white coat hypertension. At home usually a blood pressure of 1 20-130 systolic. [facility] Medical History (Updated 01/17/25 @ 13:36 by Meliton Flores MD) Afib CAD (coronary artery disease) History of open arm wound Surgical History H/O excision of mass H/O tubal ligation Family History Sister PTSD (post-traumatic stress disorder) Delusional disorder Crohn's colitis Daughter Bipolar 1 disorder Father Alcohol abuse Social History Housing: House Alcohol intake: current Alcohol intake frequency: 3 or more drinks per day Alcohol type: hard liquor Patient Tobacco Use Status: Current everyday Tobacco user Cigarettes Per Day: 5 e-Cigarette/Vaping Use: Never Used service: No Current occupational status: employed Current occupation: [employer] Current occupational exposures/hazards: No Cognitive needs: No Hearing needs: No Vision needs: Yes Review of Systems Const Denies chills, Denies daytime sleepiness, Denies fatigue, Denies fever(s), Denies frequent falls, Denies poor appetite, Denies snoring, Denies stops breathing during sleep, Denies weakness, Denies weight gain and Denies weight loss Eyes Denies loss of vision ENT Denies dizziness and Denies hearing loss Card Denies chest pain, Denies claudication, Denies leg edema, Denies lightheadedness, Denies palpitations, Denies dyspnea, Denies dyspnea on exertion and Denies orthopnea Resp Denies cough, Denies excessive phlegm production, Denies dyspnea, Denies dyspnea on exertion, Denies snoring and Denies wheezing GI Denies abdominal pain, Denies hematochezia, Denies change in bowel habits, Denies nausea and Denies vomiting Denies urinary frequency and Denies dysuria Musc Denies arthralgias, Denies muscle weakness and Denies numbness Skin/Breast Denies nail changes and Denies rash Neuro Denies Abnormal speech present, Denies dizziness, Denies frequent falls, Denies loss of vision, Denies memory loss, Denies numbness and Denies weakness Psych Denies depression and Denies memory loss Endo Denies fatigue and Denies palpitations Franc/Lymph Reports easy bruising and Reports other (anemia) Aller/Immun Denies wheezing Physical Exam Vital Signs: Last Vital Signs Pulse 93 01/17/25 12:44 BP 160/80 H 01/17/25 12:44 BMI result Body Mass Index 18.3 Const General: cooperative, comfortable, no acute distress, alert, awake and anxious Nutritional Appearance: thin Orientation/consciousness: patient oriented x3 Limitations: no limitations HEENT Head: Yes normocephalic and Yes atraumatic Neck Neck: Yes trachea midline, Yes supple and Yes no JVD Carotids: no bruits Resp Effort & Inspection: normal respiratory effort Auscultation: clear to auscultation bilaterally and diminished lung sounds Cardio Jugular venous distension: no JVD Rate: regular rate Rhythm: regular rhythm Heart sounds: S1 normal heart sound present, S2 normal heart sound present, no click, no gallops, no murmurs and no rubs GI Auscultation: normal bowel sounds Skin General skin exam: no rashes or lesions noted and ecchymosis Neuro General: patient oriented x3 and no focal motor deficits Speech: No Abnormal speech present Extrem General: Yes no clubbing, cyanosis or edema Psych Appearance: grossly normal Affect: Anxious affect present Office Procedures EKG Details: EKGs shows normal sinus rhythm with suggestive of right atrial enlargement with poor R-wave progression most likely lead placement low-voltage QRS 83206-[id number], Complete Assessment & Plan Assessment & Plan (1) CAD (coronary artery disease): Comment: with three stents Code(s): I25.10 - Atherosclerotic heart disease of [place] coronary artery without angina pectoris Category: Medical Qualifiers: Coronary Disease-Associated Artery/Lesion type: [place] artery [place] vs. transplanted heart: [place] heart Associated angina: with stable angina Qualified Code(s): I25.118 - Atherosclerotic heart disease of [place] coronary artery with other forms of angina pectoris Plan: Coronary artery disease with premature atherosclerosis with IN at age of 32 and subsequent repeat IN at age 49, undergoing stenting to the RCA. She has basal and mid inferolateral akinesis suggestive of prior myocardial damage with LVEF of 50-55%. Repeat echocardiogram in near future. Currently she has no symptoms of angina. Unfortunately she continues to smoke I had a long discussion with her about abstinence/giving up on smoking. She understands. She sees currently trying. Continue current statin dose with fenofibrate dose with well optimized LDL. She can not tolerate higher rate of the statins and/or ezetimibe therapy. If she has significantly elevated LDL cholesterol recurrent events may consider PCSK9 inhibitor therapy. Her blood pressure is currently well optimized. Encouraged to continue current medications. Encouraged to increase activity level as tolerated. She is currently on full oral anticoagulation Eliquis and therefore would avoid antiplatelet therapy to reduce bleeding risk. She has diffuse atherosclerotic disease bilateral carotid disease which are moderately severe. Due to insurance issue she needs to switch her vascular surgery and therefore will refer her to Dr. Greenfield. A blood pressure today is elevated but otherwise usually within normal limits. Discussed with her that if she has significantly labile blood pressure could benefit from renal duplex to evaluate for renal artery stenosis. No renal duplex seen in the system. (2) Paroxysmal atrial fibrillation: Code(s): I48.0 - Paroxysmal atrial fibrillation Category: Medical Plan: Paroxysmal atrial fibrillation with intermittent recurrence especially under stressful situations with lack of sleep. Otherwise she has not had any significant bouts of atrial fibrillation presentation to the hospital with the same. Continue metoprolol therapy. Avoidance of stimulants especially use of alcohol was discussed with her and abstaining from alcohol to reduce her cardiovascular risk as well as bleeding risk was discussed. Continue full oral anticoagulation, currently on Eliquis 5 mg b.i.d.. Continue aggressive blood pressure control. Will follow up in the clinic in 1 year's time, sooner p.r.n.. Thank you for allowing me to partake in her care Orders: Orders CA echo transthoracic complete Today I25.118 - Atherosclerotic heart disease of [place] coronary artery with other forms of angina pectoris Referrals Vascular Surgery Referral I65.23 - Occlusion and stenosis of bilateral carotid arteries Coding Level of Care Code New Pt Level 4 (13331) Complex EM visit Add On G2211 Diagnoses Coronary artery disease of [place] artery of [place] heart with stable angina pectoris I25.118 Coronary Disease-Associated Artery/Lesion type: [place] artery [place] vs. transplanted heart: [place] heart Associated angina: with stable angina Paroxysmal atrial fibrillation I48.0 CPT Codes EKG - CPT: 37252-Rfoqtqkzngrjxfagw, Complete ([id number])
[2025-01-17 12:44] VITALS: BP 160/80; PULSE 93; BMI 18.3
--- OUTSIDE RECORDS SUMMARY | 2025-01-17 13:39 | XMS_ITS | Clinical Summary ---
Author Organization [facility] Address [address] [place] [address] Phone Care Team Providers Care Quality Control Projectionist Name Role Phone Geraldo Rajan MD Primary Care Provider [phone] Allergies Active Allergy Reactions Criticality Noted Date [...] Sigmoidoscopy 2014 Influenza Vaccine (#1) 2025 Insurance [facility] Medicaid [facility] Medicaid Care Teams Quality Control Projectionist Relationship Specialty Start Date End Date Geraldo Rajan MD [address] [place], [place] PCP - General Internal Medicine 10/30/22
--- OUTSIDE RECORDS SUMMARY | 2025-01-17 13:39 | XMS_ITS | Clinical Summary ---
Author Organization [facility] Address [address] [place] [address] Phone Care Team Providers Care Advertising Sales Manager Name Role Phone Geraldo Rajan MD Primary Care Provider [phone] Medical History Medical History Date Comments Hyperlipidemia [...] for biopsy. PQRI CPT II 3341F Code 51631, 00289 PQRI 225 CPT II 7025F TISSUE DENSITY: There are scattered areas of fibroglandular density. (BI-RADS category B) IMPRESSION: Benign. BI-RADS CATEGORY: 1 - NEGATIVE RECOMMENDATION: Screening bilateral mammogram is recommended in 1 year. Mammo Location: [facility], [address] [place] [address] -------- FINAL REPORT -------- Dictated By: Tonio Cole Dictated Date: 05/16/2024 08:09 ET Assigned Physician: Tonio Cole Reviewed and Electronically Signed By: Tonio Cole Signed Date: 05/16/2024 08:12 ET Workstation ID: [id number] Transcribed By: Self Edit Transcribed Date: 05/16/2024 08:09 ET Narrative 05/16/2024 8:12 AM EST CLINICAL: The patient is a 58 years Female presenting for routine screening mammography. COMPARISON: Most recently 10/14/2022 and most remotely 04/30/2017. TECHNIQUE: Full-field digital mammography of the breasts bilaterally consisting of tomosynthesis in MLO and CC projection is performed in the [employer] 2000-D unit. Computer aided detection utilizing the [...] MLO and CC projection is performed in the[employer]he 2000-D unit. Computer aided detection utilizing the [employer]ystem was utilized. FINDINGS: The breasts are again [...] for biopsy. PQRI CPT II 3341F Code 07287, 39663 PQRI 225 CPT II 7025F TISSUE DENSITY: There are scattered areas of fibroglandular density.(BI-RADS category B) IMPRESSION: Benign. BI-RADS CATEGORY: 1 - NEGATIVE RECOMMENDATION: Screening bilateral mammogram is recommended in 1 year. Mammo Location: [facility], [address] [place] [id number] -------- FINAL REPORT -------- Dictated By: Tonio Cole Dictated Date: 05/16/2024 08:09 ET Assigned Physician: Tonio Cole Reviewed and Electronically Signed By: Tonio Cole Signed Date: 05/16/2024 08:12 ET Workstation ID: [id number] Transcribed By: Self Edit Transcribed Date: 05/16/2024 08:09 ET us Geraldo Rajan MD IMG BI PROCEDURES Final Result * BD Bone Density DXA Axial Skeleton (04/19/2024 2:13 PM EST) Anatomical Region Laterality Modality Wrist, Hip, L-spine Bone Densito metry 04/19/2024 4:10 PM EST Impressions 04/19/2024 4:11 PM EST Osteopenia. [id number] -------- FINAL REPORT -------- Dictated By: Bisi Wilson Dictated Date: 04/19/2024 16:10 ET Assigned Physician: Bisi Wilson Reviewed and Electronically Signed By: Bisi Wilson Signed Date: 04/19/2024 16:11 ET Workstation ID: [id number] Transcribed By: Self Edit Transcribed Date: 04/19/2024 16:10 ET Narrative 04/19/2024 4:11 PM EST History: Low estrogen state due to menopause. Current smoker. Comparison: 05/31/21 Findings: Bone densitometry is performed utilizing dual energy x-ray absorptiometry (DXA) in the [employer] unit. The lumbar spine and proximal femora [...] utilizing dual energy x-ray absorptiometry(DXA) in the [employer] Prodigy unit. The lumbar spine and [...] Osteoporotic 9.5percent Hip 2.3 percent. IMPRESSION: Osteopenia. [id number] -------- FINAL REPORT -------- Dictated By: Bisi Wilson Dictated Date: 04/19/2024 16:10 ET Assigned Physician: Bisi Wilson Reviewed and Electronically Signed By: Bisi Wilson Signed Date: 04/19/2024 16:11 ET Workstation ID: [id number] Transcribed By: Self Edit Transcribed Date: 04/19/2024 16:10 ET Geraldo Rajan MD IMG DXA PROCEDURES Final Result from Last 3 Months or Most Recently Relevant to Health Maintenance Insurance [facility] PLAN Care Teams Advertising Sales Manager Relationship Specialty Start Date End Date Geraldo Rajan MD [address] [facility] [place] [id number] PCP - General Internal Medicine 04/19/24
--- OUTSIDE RECORDS SUMMARY | 2025-01-17 13:39 | XMS_ITS | Clinical Summary ---
Author Organization [facility] Address [address] [place] [address] Care Team Providers Care Acid Concentrator Name Role Phone Mani Guillen MD Primary Care Provider [phone] Allergies Active Allergy Reactions Criticality Noted Date [...] age to complete this topic Care Teams Acid Concentrator Relationship Specialty Start Date End Date Mani Guillen MD [address] [place] [id number] PCP - General Internal Medicine 10/30/20
== END 2025-01-17 13:36 | disposition home or self-care (01) ==
LOC: HO.HCS 12:29
PROVIDERS: PCP Internal Medicine; Visit Provider Internal Medicine Cardiovascular Disease
DX: I25.118 Atherosclerotic heart disease of native coronary artery with other forms of angina pectoris (principal); I48.0 Paroxysmal atrial fibrillation
CPT/HCPCS: 93010; 99204

== ENCOUNTER → 2025-01-17 12:28 | Outpatient (BNVA) | payer OTHER, SELFPAY | PROVIDERS: PCP Internal Medicine; Visit Provider Internal Medicine Cardiovascular Disease | DX: I48.0 Paroxysmal atrial fibrillation (principal); I25.118 Atherosclerotic heart disease of native coronary artery with other forms of angina pectoris | CPT/HCPCS: 93005; 99202 ==

== ENCOUNTER → 2025-03-01 12:44 | Outpatient (REF) | payer OTHER, SELFPAY ==
--- NOTE | 2025-03-01 12:46 | CA_ITS ---
Transthoracic Echocardiogram Patient (Last, First, Middle): Harman Saldivar, Gender: F Date of : 1965 Age: 59 Procedure Date: 03/01/2025 Procedure Type: Transthoracic Echocardiogram Location: OP Height: 149.86 cm Weight: 40.82 kg BSA: 1.31 m2 Heart Rate: bpm BP: 150 / 84 mmHg Pasteurizing Supervisor: TO Referring MD: Meliton Flores MD Symptoms: I25.118 - Atherosclerotic heart disease of [place] coronary artery with o... Study Quality: Adequate Conclusions: - 1. Normal LV ejection fraction 55-60% with mild asymmetric septal hypertrophy 2. Normal cardiac valvular Dopplers next 3. Normal RV systolic pressure 4. No gross pericardial effusion Findings Left Ventricle Normal left ventricular size, thickness, and systolic function. The visually estimated ejection fraction is between 55-60%. Spectral Doppler is indicative of an impaired relaxation filling pattern. E/E prime ratio is <8, consistent with normal filling pressures. There is mild septal asymmetric hypertrophy. Right Ventricle Normal right ventricular cavity size and systolic function. Atria Both atria are normal in size. There is no evidence of interatrial shunt. Aortic Valve Normal aortic valve structure and function. There is no aortic valve stenosis. There is no aortic valve regurgitation. Mitral Valve Normal mitral valve structure and function. There is trace mitral valve regurgitation. There is no mitral valve stenosis. Pulmonic Valve The pulmonic valve is likely normal. There is trace pulmonic valve regurgitation. Tricuspid Valve Normal tricuspid valve structure. There is trace tricuspid valve regurgitation. The right ventricular systolic pressure is normal. The right ventricular systolic pressure is 19 mmHg. Normal right atrial pressure. There is no evidence of pulmonary hypertension. Great Vessels All visible segments of the aorta are normal in size. The pulmonary artery was not well visualized. There is no dilatation of the ascending aorta measuring 3.20 cm. Venous The inferior vena cava is normal in size and collapses greater than 50% with inspiration. Pericardium/Pleural There is no evidence of pericardial effusion. Prior Study Comparison No prior study available for comparison. Measurements 2D Linear Measurements IVSd: 0.78 0.6-0.9/0.6-1.0 cm LVIDd: 4.35 3.9-5.3/4.2-5.9 cm LVIDd Index: 3.32 2.4-3.2/2.2-3.1 cm/m2 LVIDs: 2.91 2.0-3.6 cm LVPWd: 0.71 0.7-1.1 cm LA Diam: 3.00 2.7-3.8/3.0-4.0 cm LAIDs Index: 2.29 1.5-2.3 cm/m2 LV Mass: 121.64 67-162/88-224 g LV Mass Index: 92.86 43-95/49-115 g/m2 LVOT Diam: 2.10 3.0+(-)1.3 cm Mitral Valve MV Pk E: 0.42 MV PK A: 0.62 MV Decel Time: 178.00 E/A: 0.70 E'Lateral: 8.16 E'Medial: 5.66 E/E' Med: 7.40 E/E' Lat: 5.20 PHT: 52.00 MVA PHT: 4.23 Decel Beckham: 2.37 Aortic Valve AoV Pk [place]: 0.99 AoV Mn [place]: 0.66 AoV VTI: 0.18 AoV Pk Grad: 4.00 Aov Mn Grad: 2.00 NICK Cont.VTI: 2.72 LVOT LVOT Pk [place]: 0.75 LVOT Mn [place]: 0.46 LVOT VTI: 0.14 LVOT Pk Grad: 2.00 LVOT Mn Grad: 1.00 LVOT Diam: 2.10 LVOT Area: 3.46 Diastolic Function MV Pk E: 0.42 MV Pk A: 0.62 E/A: 0.70 E'Medial: 5.66 E/E' Med: 7.40 E' Laterial: 8.16 E/E' Lat: 5.20 Right Ventricle TAPSE (mm): 14.00 TVS' [place]: 9.00 Tricuspid Valve TR Pk [place]: 2.02 TR Pk Grad: 16.00 RA Press: 3.00 RVSP: 19.00 Great Vessels Aorta Sinus of Valsalva: 3.10 2.0-3.5 cm Ao Asc: 3.20 2.1-3.4 cm Updated in Other Vendor System with Status of Final Meliton Flores MD electronically signed on 03/01/2025 3:02:02 PM with status of Final
--- OUTSIDE RECORDS SUMMARY | 2025-03-01 16:08 | XMS_ITS | Clinical Summary ---
Author Organization [facility] Address [address] [place] [address] Care Team Providers Care Access Lead Name Role Phone Mani Guillen MD Primary Care Provider [phone] Allergies Active Allergy Reactions Criticality Noted Date [...] age to complete this topic Care Teams Access Lead Relationship Specialty Start Date End Date Mani Guillen MD [address] [place] [phone] PCP - General Internal Medicine 10/30/20
--- OUTSIDE RECORDS SUMMARY | 2025-03-01 16:08 | XMS_ITS | Clinical Summary ---
Author Organization [facility] Address [address] [place] [address] Phone Care Team Providers Care Self Propelled Mining Machine Operator Name Role Phone Geraldo Rajan MD Primary Care Provider [phone] Medical History Medical History Date Comments Hyperlipidemia [...] Health Maintenance Due Date Last Done Comments Colorectal Cancer Screening: Colonoscopy 1965 DTaP,Tdap,and Td Vaccines (1 - Tdap) 1984 Hepatitis A Vaccines (1 of 2 - Risk 2-dose series) 1984 Hepatitis B Vaccines (1 of 3 - 19+ 3-dose series) 1984 Cervical Cancer Screening: Pap Smear 1986 Pneumococcal Vaccine: 50+ Years (1 of 1 - PCV) 08/27/2015 Cholesterol Screening (Lipid Panel) 04/20/2022 HIV Screening 04/20/2022 Hepatitis C Screening [...] for biopsy. PQRI CPT II 3341F Code 34647, 36656 PQRI 225 CPT II 7025F TISSUE DENSITY: There are scattered areas of fibroglandular density. (BI-RADS category B) IMPRESSION: Benign. BI-RADS CATEGORY: 1 - NEGATIVE RECOMMENDATION: Screening bilateral mammogram is recommended in 1 year. Mammo Location: [facility], [address] [place] [address] -------- FINAL REPORT -------- Dictated By: Tonio Cole Dictated Date: 05/16/2024 08:09 ET Assigned Physician: Tonio Cole Reviewed and Electronically Signed By: Tonio Cole Signed Date: 05/16/2024 08:12 ET Workstation ID: [id number] Transcribed By: Self Edit Transcribed Date: 05/16/2024 08:09 ET Narrative 05/16/2024 8:12 AM EST CLINICAL: The patient is a 58 years Female presenting for routine screening mammography. COMPARISON: Most recently 10/14/2022 and most remotely 04/30/2017. TECHNIQUE: Full-field digital mammography of the breasts bilaterally consisting of tomosynthesis in MLO and CC projection is performed in the [employer] 2000-D unit. Computer aided detection utilizing the [...] MLO and CC projection is performed in the[employer] Media[employer]he 2000-D unit. Computer aided detection utilizing the [employer]ystem was utilized. FINDINGS: The breasts are again [...] for biopsy. PQRI CPT II 3341F Code 06765, 97747 PQRI 225 CPT II 7025F TISSUE DENSITY: There are scattered areas of fibroglandular density.(BI-RADS category B) IMPRESSION: Benign. BI-RADS CATEGORY: 1 - NEGATIVE RECOMMENDATION: Screening bilateral mammogram is recommended in 1 year. Mammo Location: [facility], [address] [place] [id number] -------- FINAL REPORT -------- Dictated By: Tonio Cole Dictated Date: 05/16/2024 08:09 ET Assigned Physician: Tonio Cole Reviewed and Electronically Signed By: Tonio Cole Signed Date: 05/16/2024 08:12 ET Workstation ID: [id number] Transcribed By: Self Edit Transcribed Date: 05/16/2024 08:09 ET us Geraldo Rajan MD IMG BI PROCEDURES Final Result * BD Bone Density DXA Axial Skeleton (04/19/2024 2:13 PM EST) Anatomical Region Laterality Modality Wrist, Hip, L-spine Bone Densito metry 04/19/2024 4:10 PM EST Impressions 04/19/2024 4:11 PM EST Osteopenia. [id number] -------- FINAL REPORT -------- Dictated By: Bisi Wilson Dictated Date: 04/19/2024 16:10 ET Assigned Physician: Bisi Wilson Reviewed and Electronically Signed By: Bisi Wilson Signed Date: 04/19/2024 16:11 ET Workstation ID: [id number] Transcribed By: Self Edit Transcribed Date: 04/19/2024 16:10 ET Narrative 04/19/2024 4:11 PM EST History: Low estrogen state due to menopause. Current smoker. Comparison: 05/31/21 Findings: Bone densitometry is performed utilizing dual energy x-ray absorptiometry (DXA) in the [employer] unit. The lumbar spine and proximal femora [...] utilizing dual energy x-ray absorptiometry(DXA) in the [employer] Prodigy unit. The lumbar spine and proximal [...] Osteoporotic 9.5percent Hip 2.3 percent. IMPRESSION: Osteopenia. 44[address] -------- FINAL REPORT -------- Dictated By: Bisi Wilson Dictated Date: 04/19/2024 16:10 ET Assigned Physician: Bisi Wilson Reviewed and Electronically Signed By: Bisi Wilson Signed Date: 04/19/2024 16:11 ET Workstation ID: [id number] Transcribed By: Self Edit Transcribed Date: 04/19/2024 16:10 ET Geraldo Rajan MD IMG DXA PROCEDURES Final Result from Last 3 Months or Most Recently Relevant to Health Maintenance Insurance [facility] [email or web address] PLAN Care Teams Self Propelled Mining Machine Operator Relationship Specialty Start Date End Date Geraldo Rajan MD [address] [facility] [place] [id number] PCP - General Internal Medicine 04/19/24
--- OUTSIDE RECORDS SUMMARY | 2025-03-01 16:08 | XMS_ITS | Patient Health Record ---
[facility] [place] Address [address] [place] [address] Care Team Providers Care Can Inspector Name Role Phone Mani Guillen MD Primary Care Provider Brittany Loomis Unavailable [phone] Allergies Allergen (clinical drug ingredient) Drug/Non Drug Allergy documented on EMR Reaction Allergy Type Onset Date Status Ticlid Unknown Drug Allergy Active Shellfish (FN) Shellfish-derived Products anaphylaxis Drug Allergy Active Reason For Referral No Information Medications Medication SIG (Take, Route, Frequency, Duration) Notes Start Date End Date Status Vitamin D (Ergocalciferol) 1.25 MG (69055 UT) 1 capsule Orally; Duration: 30 day(s) [...] Insured Coverage Start Date Coverage End Date [facility] All Others [address] [place] [address] [id number] Behzad Saldivar Spouse - patient is the spouse of the insured Medical (General) History Medical History History ICD Code CAD (Cholesterol) Heart disease High blood pressure Warts Chicken pox Transfusions A fib Kidney failure Surgical History Surgery Date(Month/Year) 3 Stents in Heart 10/23/2014 tubal ligation
== END ==
LOC: HO.CARD 12:44
PROVIDERS: PCP Internal Medicine; Visit Provider Internal Medicine Cardiovascular Disease
DX: I25.118 Atherosclerotic heart disease of native coronary artery with other forms of angina pectoris (principal)
CPT/HCPCS: 93306

== ENCOUNTER → 2025-03-01 12:46 | Outpatient (BNV) | payer OTHER, SELFPAY | PROVIDERS: PCP Internal Medicine; Visit Provider Internal Medicine Cardiovascular Disease | DX: I42.2 Other hypertrophic cardiomyopathy (principal) | CPT/HCPCS: 93306 ==

== ENCOUNTER 2025-03-14 13:08 | Outpatient (AMB) | payer OTHER, SELFPAY ==
--- NOTE | 2025-03-14 13:11 | A.OFFVIS_ITS ---
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 States she feels unsteady on her feet, can get light headed. 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 She has been undergoing routine ultrasounds of her neck, which have revealed bilateral carotid artery stenosis, with the left side showing 50-79% stenosis and the right side 0-49%. The patient has been aware of these blockages for some time and has been monitored regularly at [facility] but has switched over due to her insurance. The patient has a history of atrial fibrillation and coronary artery disease, for which she is on Eliquis and a cholesterol-lowering medication. She has had three stents placed in her heart and has a history of hypertension and hyperlipidemia. The patient experienced her first myocardial infarction at the age of 32. The patient smokes approximately eight cigarettes a day and has attempted to quit multiple times. At the current time she is asymptomatic and is now following up for carotid disease. [facility] Medical History Afib CAD (coronary artery disease) History of open arm wound Surgical History H/O excision of mass H/O tubal ligation Family History Sister PTSD (post-traumatic stress disorder) Delusional disorder Crohn's colitis Daughter Bipolar 1 disorder Father Alcohol abuse Social History Housing: House Alcohol intake: current Alcohol intake frequency: 3 or more drinks per day Alcohol type: hard liquor Patient Tobacco Use Status: Current everyday Tobacco user Cigarettes Per Day: 5 e-Cigarette/Vaping Use: Never Used service: No Current occupational status: employed Current occupation: [employer] Current occupational exposures/hazards: No Cognitive needs: No Hearing needs: No Vision needs: Yes Review of Systems Const All systems reviewed & are unremarkable except as noted in HPI and below Reports no additional complaints ENT Reports Normal hearing present Card Denies chest pain, Denies chest pain at rest, Denies chest pain with activity and Denies pedal edema Resp Denies cough GI Denies abdominal pain Musc Denies abnormal gait, Denies muscle cramps and Denies radiating pain into limb Skin/Breast Denies skin ulcer and Denies wounds Neuro Reports Normal hearing present and Denies abnormal gait Psych Reports no additional complaints Physical Exam Const General: cooperative, healthy appearing and comfortable Orientation/consciousness: oriented to person, oriented to place and oriented to time HEENT Head: Yes normal to inspection Neck Neck: Yes normal visual inspection Carotids: no bruits Chest Chest palpation & inspection: normal inspection of the chest Resp Effort & Inspection: normal respiratory effort and able to speak in complete sentences Auscultation: clear to auscultation bilaterally, no crackles, no rales, no rhonchi and no wheezes Cardio Rate: regular rate Rhythm: regular rhythm Heart sounds: S1 normal heart sound present and S2 normal heart sound present Bruits: no carotid bruits Peripheral pulses: Peripheral pulses 2+ throughout GI Inspection: Yes normal to inspection Skin Wounds: no wounds Hair: normal Neuro General: oriented to person, oriented to place and oriented to time Cranial nerves: Yes CN's II-XII intact bilaterally and Yes Normal hearing present Cognition (Neuro): normal cognition Motor exam (neuro): 5/5 motor strength present throughout Extrem Other: venous exam: No significant superficial varicosities or spider telangiectasias, minimal edema General: No clubbing, No cyanosis and No edema Psych Appearance: grossly normal Mental Status: mental status grossly normal Speech and movement: Normal speech and movement present Results Reviewed Results Reviewed: Carotid testing dated 10/18/2024 demonstrates right-sided 0-49% stenosis and left- sided 50-79% stenosis with a peak systolic of 216. Written report and images were reviewed. Assessment & Plan Assessment & Plan (1) Carotid artery disease: Code(s): I77.9 - Disorder of arteries and arterioles, unspecified Category: Medical Qualifiers: Carotid artery disease type: stenosis Laterality: bilateral Qualified Code(s): I65.23 - Occlusion and stenosis of bilateral carotid arteries Plan: I discussed with the patient the importance of regular monitoring of her carotid artery stenosis to prevent stroke. We agreed on a follow-up ultrasound in six months to assess any changes. I reassured her that her current management plan, including the use of Eliquis for atrial fibrillation and cholesterol medication, is appropriate for her condition. Plan Patient was informed and verbally consented to the use of an ambient scribe for clinic note documentation during this visit. Orders: Orders US carotid duplex BI 6 Months I65.23 - Occlusion and stenosis of bilateral carotid arteries Patient Instructions: - Continue taking Eliquis and cholesterol medication as prescribed. - Schedule a follow-up ultrasound of the carotid arteries in six months. - Monitor for any new symptoms such as sudden weakness, numbness, or difficulty speaking, and seek immediate medical attention if they occur. Coding Level of Care Code Est Pt Level 4 (50929) Diagnoses Bilateral carotid artery stenosis I65.23 Carotid artery disease type: stenosis Laterality: bilateral
== END 2025-03-14 13:35 | disposition home or self-care (01) ==
LOC: HO.HVS 13:09
PROVIDERS: PCP Internal Medicine; Visit Provider Surgery Vascular Surgery
DX: I65.23 Occlusion and stenosis of bilateral carotid arteries (principal)
CPT/HCPCS: 99214

== ENCOUNTER → 2025-03-14 13:08 | Outpatient (BNVA) | payer OTHER, SELFPAY | PROVIDERS: PCP Internal Medicine; Visit Provider Surgery Vascular Surgery | DX: I65.23 Occlusion and stenosis of bilateral carotid arteries (principal) | CPT/HCPCS: 99212 ==

== ENCOUNTER 2025-03-29 12:49 | Outpatient (AMB) | payer OTHER, SELFPAY ==
[2025-03-29 12:53] VITALS: BP 142/70; PULSE 86; O2SAT 98; BMI 17.7
--- NOTE | 2025-03-29 12:53 | A.OFFPC_ITS ---
Vital Signs 03/29/25 12:53 Height 4 ft 11 in Weight 87 lb 8 oz BMI 17.7 BP 142/70 H Blood Pressure Location Lt brachial Position Sitting Pulse 86 Pulse Source Pulse Oximeter Pulse Oximetry (%) 98 Intake Visit Reasons: 3m follow up Allergies ticlopidine (From Ticlid) Allergy (Verified 03/29/25 12:53) Anaphylaxis seafood Adverse Reaction (Severe, Verified 03/29/25 12:53) Anaphylaxis Medication List - Last Reconciled 03/29/25 by Geraldo Rajan MD amlodipine 5 mg PO QPM apixaban (Eliquis) 5 mg PO BID famotidine 20 mg PO DAILY fenofibrate micronized 134 mg PO DAILY isosorbide dinitrate 10 mg PO BID levothyroxine 50 mcg PO DAILY loratadine 10 mg PO DAILY metoprolol succinate ER 200 mg PO BEDTIME pravastatin 40 mg PO DAILY Tobacco use date assessed: 09/23/24 Dental Screening Dental Screen Date: 09/23/24 HPI 3m follow up HPI Details History of Present Illness The patient is a 59-year-old female presenting for a follow-up appointment for medication refills and to address new problems of anorexia and unintentional weight loss. Unintentional Weight Loss and Anorexia: - The patient reports a new issue of hav ing no appetite and significant weight loss, stating this has been ongoing for a while. - She has lost approximately 15 pounds o jennie the last two years, with her weight dropping from around 103-104 lbs in 2022. - She also reports feeling very weak and having no strength. - The patient denies abdominal pain, nilsa sea, vomiting, or bowel problems. - She speculates the cause could be rela rembetro to , her lung condition, or d epression following a recent job loss. Essential Hypertension: - The patient has hypertension, with a b lood pressure reading of 142/70 mmHg during the visit. - She is currently taking amlodipine 5 m g and metoprolol 20 mg at bedtime. Chronic Obstructive Pulmonary Disease: - The patient has a history of smoking a nd continues to smoke. - She reports some shortness of breath. - She has never had a pulmonary function test. Depression: - The patient reports feeling depressed, which she attributes to being laid off from her job. - She has a history of a sleepwalking di sorder and is hesitant to take certain medications for depression. - She has previously taken a low dose of Prozac (fluoxetine) with good results and no side effects. Hyperlipidemia: - The patient has a lipid disorder and i s taking pravastatin 40 mg and fibrate. Substance Use: - The patient reports she is still smoki ng cigarettes. - She also reports consuming 3-5 alcohol ic drinks per night. Medical History: - Hyperlipidemia - Hypothyroidism - Gastroesophageal reflux disease (GERD) - Paroxysmal atrial fibrillation, on chr onic anticoagulation - Coronary artery disease with a history of heart attacks and cardiac rehabilitation - Carotid artery disease - Sleepwalking disorder - History of vitamin B12 and magnesium d eficiency - Insomnia - Depression Medications: - Amlodipine 5 mg for hypertension - Metoprolol 20 mg at bedtime - Pravastatin 40 mg for lipid disorder - Levothyroxine 50 mcg for hypothyroidis m - Loratadine 10 mg for allergies - Famotidine 20 mg for GERD - finofibrate for lipid disorder - An unspecified blood thinner for parox ysmal atrial fibrillation Social History: - Tobacco Use: Patient is an active smok er. - Alcohol Use: Reports drinking 3-5 alco holic beverages per night. - Employment: Patient was recently laid off from her job at [employer]. - Marital Status: Lives with her . - Nutrition: Reports a complete loss of appetite. Diagnostic Results: - Vitals: Blood pressure 142/70 mmHg. - Labs (from December): - CBC: No anemia. - Electrolytes: Within normal limits. - GFR: > 60. - AST: 53 (stable). - Vitamin B12: 885. - Vitamin D: 104 (toxic). - TSH: Within normal limits. Problem List - Essential Hypertension - Hyperlipidemia - Hypothyroidism - Gastroesophageal Reflux Disease (GERD) - Paroxysmal Atrial Fibrillation - Coronary Artery Disease - Carotid Artery Disease - Chronic Obstructive Pulmonary Disease (COPD) - Depression - Sleepwalking disorder - Unintentional Weight Loss - Anorexia - Alcohol Abuse - Tobacco Use Disorder - Preventative Care: Immunizations Plan - An order for a pulmonary function test (PFT) has been placed to evaluate for COPD as a potential cause of weight loss. - For depression, a prescription for flu oxetine 10 mg capsule has been sent to the pharmacy. - The patient is advised to start taking one capsule of fluoxetine in the morning. - For hypertension, the amlodipine dose will be increased to 10 mg daily. The patient was instructed to take two of her current 5 mg tablets to finish her existing supply before starting the new 10 mg tablets. - The patient will continue with all her other current medications as prescribed. - The patient has been advised to schedu le a follow-up appointment in three months. - The patient was advised to stop smokin g and drinking alcohol. Review of Systems - General: No fever no chills - Neurological: No headaches no dizziness - Ear nose throat: No sore throat no hearing difficulty no ear pain - Cardiovascular: No syncope, no chest pain, no palpitations - Gastrointestinal: No nausea vomiting or diarrhea - Endocrine: No polyuria polydipsia no heat intolerance - Genitourinary: No dysuria , no blood in urine Physical Exam General: No acute distress HEENT: No acute findings Neck: Supple Respiratory system: Able to talk in full sentences, no audible wheeze, severe COPD with not much air movement in the lungs Cardiovascular: S1-S2 Irreg Irreg Gastrointestinal: No pain Extremities: No new findings FRONT END SOFTWARE DEVELOPER: Alert awake oriented x3 motor intact Skin: Normal turgor [facility] Medical History Afib CAD (coronary artery disease) History of open arm wound Surgical History H/O excision of mass H/O tubal ligation Family History Sister PTSD (post-traumatic stress disorder) Delusional disorder Crohn's colitis Daughter Bipolar 1 disorder Father Alcohol abuse Social History Housing: House Alcohol intake: current Alcohol intake frequency: 3 or more drinks per day Alcohol type: hard liquor Patient Tobacco Use Status: Current everyday Tobacco user Cigarettes Per Day: 5 e-Cigarette/Vaping Use: Never Used service: No Current occupational status: employed Current occupation: [employer] Current occupational exposures/hazards: No Cognitive needs: No Hearing needs: No Vision needs: Yes Questionnaire Thrive Questionnaire Date Thrive assessed: 03/29/25 I am a: Patient What is your living situation today?: I have a steady place to live Within the past 12 months, did the food you bought not last and you didn't have the money to get more?: Never true Within the past 12 months, did you worry whether your food would run out before you got money to buy more?: Sometimes True Do you have trouble paying for medicines?: No Do you have trouble getting transportation to medical appointments?: No Do you have trouble paying your heating and electricity bill?: No Do you have trouble taking care of your child, family member or friend?: No Do you have trouble with day-to-day activities such as bathing, preparing meals, shopping, managing finances, etc.?: No Are you currently unemployed and looking for a job?: No Are you interested in more education?: No Please select the resources that you would like help with: None Currently or been in a relationship where the following occur: No concerns reported THRIVE Score: 1 SADIA-7 AMB Questionnaire SADIA-7 Date SADIA - 7 assessed: 09/23/24 Source: Developed by Drs. Michael Asher, Naila Freeman, Noah Butts and colleagues, with an educational anel from [employer]. Physical exam (Primary Care) Vital Signs: Last Vital Signs Pulse 86 03/29/25 12:53 BP 142/70 H 03/29/25 12:53 Pulse Ox 98 03/29/25 12:53 BMI result Body Mass Index 17.7 Tobacco/Smoking Status: Tobacco use Status Tobacco use date assessed 09/23/24 03/29/25 12:54 Patient Tobacco Use Status Current everyday Tobacco 03/29/25 12:54 e-Cigarette/Vaping Use Never Used 03/29/25 12:54 Are you ready to quit: No Tobacco cessation counseling provided: Yes Relapse Prevention: discussed the importance of a supportive environment CPT code: 06232 - 4-10 Minutes Thrive Assessment: Date of Thrive Assessment Date Thrive assessed 03/29/25 03/29/25 12:54 Currently or been in a relationship where the following occur: No concerns reported Coding Level of Care Code Est Pt Level 5 (98224) Diagnoses Chronic obstructive pulmonary disease, unspecified COPD type J44.9 COPD type: unspecified COPD Unintentional weight loss R63.4 Anorexia R63.0 Sleep walking disorder F51.3 Bilateral carotid artery stenosis I65.23 Carotid artery disease type: stenosis Laterality: bilateral Other specified hypothyroidism E03.8 Paroxysmal atrial fibrillation I48.0 Atrial fibrillation type: paroxysmal Lipid disorder E78.9 Difficulty sleeping G47.9 Chronic GERD K21.9 Hx of halfway use of blood thinners Z92.29 Coronary artery disease of [place] artery of [place] heart with stable angina pectoris I25.118 Associated angina: with stable angina Coronary Disease-Associated Artery/Lesion type: [place] artery [place] vs. transplanted heart: [place] heart Alcoholism F10.20 Alcohol cessation counseling Z71.41 Additional Codes Vital Signs *Quality* - CPT code: 22636 - 4-10 Minutes ([id number]) Time Spent (min) 40 Comment chart review / labs / face to face/ Coordination of care Assessment & Plan Assessment & Plan (1) COPD (chronic obstructive pulmonary disease): Code(s): J44.9 - Chronic obstructive pulmonary disease, unspecified Category: Medical Qualifiers: COPD type: unspecified COPD Qualified Code(s): J44.9 - Chronic obstructive pulmonary disease, unspecified (2) Unintentional weight loss: Code(s): R63.4 - Abnormal weight loss Category: Medical (3) Anorexia: Code(s): R63.0 - Anorexia Category: Medical (4) Sleep walking disorder: Code(s): F51.3 - Sleepwalking [somnambulism] Category: Medical (5) Carotid artery disease: Code(s): I77.9 - Disorder of arteries and arterioles, unspecified Category: Medical Qualifiers: Carotid artery disease type: stenosis Laterality: bilateral Qualified Code(s): I65.23 - Occlusion and stenosis of bilateral carotid arteries (6) Other specified hypothyroidism: Code(s): E03.8 - Other specified hypothyroidism Category: Medical (7) Afib: Code(s): I48.91 - Unspecified atrial fibrillation Category: Medical Qualifiers: Atrial fibrillation type: paroxysmal Qualified Code(s): I48.0 - Paroxysmal atrial fibrillation (8) Lipid disorder: Code(s): E78.9 - Disorder of lipoprotein metabolism, unspecified Category: Medical (9) Difficulty sleeping: Code(s): G47.9 - Sleep disorder, unspecified Category: Medical (10) Chronic GERD: Code(s): K21.9 - Gastro-esophageal reflux disease without esophagitis Category: Medical (11) 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 transplanted heart: [place] heart Qualified Code(s): I25.118 - Atherosclerotic heart disease of [place] coronary artery with other forms of angina pectoris (13) Alcoholism: Code(s): F10.20 - Alcohol dependence, uncomplicated Category: Medical (14) Alcohol cessation counseling: Code(s): Z71.41 - Alcohol abuse counseling and surveillance of alcoholic Category: Medical Plan Unintentional Weight Loss and Anorexia: - The patient reports a new issue of having no appetite and significant weight loss, stating this has been ongoing for a while. - She has lost approximately 15 pounds over the last two years, with her weight dropping from around 103-104 lbs in 2022. - She also reports feeling very weak and having no strength. - The patient denies abdominal pain, nausea, vomiting, or bowel problems. - She speculates the cause could be related to , her lung condition, or depression following a recent job loss. Essential Hypertension: - The patient has hypertension, with a blood pressure reading of 142/70 mmHg during the visit. - She is currently taking amlodipine 5 mg and metoprolol 20 mg at bedtime. Chronic Obstructive Pulmonary Disease: - The patient has a history of smoking and continues to smoke. - She reports some shortness of breath. - She has never had a pulmonary function test. Depression: - The patient reports feeling depressed, which she attributes to being laid off from her job. - She has a history of a sleepwalking disorder and is hesitant to take certain medications for depression. - She has previously taken a low dose of Prozac (fluoxetine) with good results and no side effects. Hyperlipidemia: - The patient has a lipid disorder and is taking pravastatin 40 mg and fibrate. Substance Use: - The patient reports she is still smoking cigarettes. - She also reports consuming 3-5 alcoholic drinks per night. Medical History: - Hyperlipidemia - Hypothyroidism - Gastroesophageal reflux disease (GERD) - Paroxysmal atrial fibrillation, on chronic anticoagulation - Coronary artery disease with a history of heart attacks and cardiac rehabilitation - Carotid artery disease - Sleepwalking disorder - History of vitamin B12 and magnesium deficiency - Insomnia - Depression Medications: - Amlodipine 5 mg for hypertension - Metoprolol 20 mg at bedtime - Pravastatin 40 mg for lipid disorder - Levothyroxine 50 mcg for hypothyroidism - Loratadine 10 mg for allergies - Famotidine 20 mg for GERD - finofibrate for lipid disorder - An unspecified blood thinner for paroxysmal atrial fibrillation Social History: - Tobacco Use: Patient is an active smoker. - Alcohol Use: Reports drinking 3-5 alcoholic beverages per night. - Employment: Patient was recently laid off from her job at [employer]. - Marital Status: Lives with her . - Nutrition: Reports a complete loss of appetite. Diagnostic Results: - Vitals: Blood pressure 142/70 mmHg. - Labs (from December): - CBC: No anemia. - Electrolytes: Within normal limits. - GFR: > 60. - AST: 53 (stable). - Vitamin B12: 885. - Vitamin D: 104 (toxic). - TSH: Within normal limits. Problem List - Essential Hypertension - Hyperlipidemia - Hypothyroidism - Gastroesophageal Reflux Disease (GERD) - Paroxysmal Atrial Fibrillation - Coronary Artery Disease - Carotid Artery Disease - Chronic Obstructive Pulmonary Disease (COPD) - Depression - Sleepwalking disorder - Unintentional Weight Loss - Anorexia - Alcohol Abuse - Tobacco Use Disorder - Preventative Care: Immunizations Plan - An order for a pulmonary function test (PFT) has been placed to evaluate for COPD as a potential cause of weight loss. - For depression, a prescription for fluoxetine 10 mg capsule has been sent to the pharmacy. - The patient is advised to start taking one capsule of fluoxetine in the morning. - For hypertension, the amlodipine dose will be increased to 10 mg daily. The patient was instructed to take two of her current 5 mg tablets to finish her existing supply before starting the new 10 mg tablets. - The patient will continue with all her other current medications as prescribed. - The patient has been advised to schedule a follow-up appointment in three months. - The patient was advised to stop smoking and drinking alcohol. Orders: Orders PFT pulmonary function test Today J44.9 - Chronic obstructive pulmonary disease, unspecified Medications: New fluoxetine 10 mg PO DAILY 90 caps 0RF Changed From amlodipine 5 mg PO QPM 90 tabs 0RF To amlodipine 10 mg PO QPM 90 tabs 0RF
--- OUTSIDE RECORDS SUMMARY | 2025-03-29 15:27 | XMS_ITS | Clinical Summary ---
Author Organization [facility] Address [address] [place] [address] Care Team Providers Care Vault Clerk Name Role Phone Mani Guillen MD Primary Care Provider [phone] Allergies Active Allergy Reactions Criticality Noted Date [...] age to complete this topic Care Teams Vault Clerk Relationship Specialty Start Date End Date Mani Guillen MD [address] [place] [id number] PCP - General Internal Medicine 10/30/20
--- OUTSIDE RECORDS SUMMARY | 2025-03-29 15:27 | XMS_ITS | Patient Health Record ---
Author Organization [facility] [place] Address [address] [place] [address] Care Team Providers Care Dough Braker Name Role Phone Mani Guillen MD Primary Care Provider Brittany Loomis Unavailable [phone] Allergies Allergen (clinical drug ingredient) Drug/Non Drug Allergy documented on EMR Reaction Allergy Type Onset Date Status Ticlid Unknown Drug Allergy Active Shellfish (FN) Shellfish-derived Products anaphylaxis Drug Allergy Active Reason For Referral No Information Medications Medication SIG (Take, Route, Frequency, Duration) Notes Start Date End Date Status Vitamin D (Ergocalciferol) 1.25 MG (67788 UT) 1 capsule Orally; Duration: 30 day(s) [...] Insured Coverage Start Date Coverage End Date [facility] [address] [place] [address] [id number] Behzad Saldivar Spouse - patient is the spouse of the insured Medical (General) History Medical History History ICD Code CAD (Cholesterol) Heart disease High blood pressure Warts Chicken pox Transfusions A fib Kidney failure Surgical History Surgery Date(Month/Year) 3 Stents in Heart 10/23/2014 tubal ligation
--- OUTSIDE RECORDS SUMMARY | 2025-03-29 15:27 | XMS_ITS | Clinical Summary ---
Author Organization [facility] Address [address] [place] [address] Phone Care Team Providers Care Sanitarian Inspector Name Role Phone Geraldo Rajan MD Primary Care Provider [phone] Allergies Active Allergy Reactions Criticality Noted Date Comments Nicotine 07/01/2021 Other reaction(s): hallicinations pt states used to smoke Shellfish Protein-Containing Drug Products Other (see comments) 02/19/2021 Shrimp (Diagnostic) [...] Sigmoidoscopy 2014 Influenza Vaccine (#1) 2025 Insurance [facility] Medicaid [facility] Medicaid Care Teams Sanitarian Inspector Relationship Specialty Start Date End Date Geraldo Rajan MD [address] [place] [address] PCP - General Internal Medicine 10/30/22
--- OUTSIDE RECORDS SUMMARY | 2025-03-29 15:27 | XMS_ITS | Clinical Summary ---
Author Organization [facility] Address [address] [place] [address] Phone Care Team Providers Care Die Stamper Name Role Phone Geraldo Rajan MD Primary Care Provider [phone] Medical History Medical History Date Comments Hyperlipidemia [...] BMP Blood Test 04/19/2024 Depression Screening 05/18/2024 COVID-19 Vaccine ( season) 2025 02/02/2024, 02/24/2023, 01/27/2022, Additional history exists Influenza Vaccine (#1) 2025 4, 02/27/2023, 02/18/2022, Additional history exists Breast Cancer Screening 05/13/2026 05/13/20 24, 10/14/2022, 05/31/2021, Additional history exists Osteoporosis Screening (Bone Density Screening) 04/19/2034 04/19/2024, 05/31/2021, 05/03/2019 RSV Immunization Adult Patients (1 - 1-dose 75+ series) 2040 Zoster Vaccines Completed 12/18/2021, 05/29/2021 HIB Vaccines Aged Out No longer eligi [...] for biopsy. PQRI CPT II 3341F Code 76286, 30172 PQRI 225 CPT II 7025F TISSUE DENSITY: There are scattered areas of fibroglandular density. (BI-RADS category B) IMPRESSION: Benign. BI-RADS CATEGORY: 1 - NEGATIVE RECOMMENDATION: Screening bilateral mammogram is recommended in 1 year. Mammo Location: [facility], [address] [place] [address] -------- FINAL REPORT -------- Dictated By: Tonio Cole Dictated Date: 05/16/2024 08:09 ET Assigned Physician: Tonio Cole Reviewed and Electronically Signed By: Tonio Cole Signed Date: 05/16/2024 08:12 ET Workstation ID: [id number] Transcribed By: Self Edit Transcribed Date: 05/16/2024 08:09 ET Narrative 05/16/2024 8:12 AM EST CLINICAL: The patient is a 58 years Female presenting for routine screening mammography. COMPARISON: Most recently 10/14/2022 and most remotely 04/30/2017. TECHNIQUE: Full-field digital mammography of the breasts bilaterally consisting of tomosynthesis in MLO and CC projection is performed in the [employer] 2000-D unit. Computer aided detection utilizing the [...] MLO and CC projection is performed in theHotreaderographe 2000-D unit. Computer aided detection utilizing the [employer] was utilized. FINDINGS: The breasts are again [...] for biopsy. PQRI CPT II 3341F Code 96885, 68161 PQRI 225 CPT II 7025F TISSUE DENSITY: There are scattered areas of fibroglandular density.(BI-RADS category B) IMPRESSION: Benign. BI-RADS CATEGORY: 1 - NEGATIVE RECOMMENDATION: Screening bilateral mammogram is recommended in 1 year. Mammo Location: [facility], [address] [place] [id number] -------- FINAL REPORT -------- Dictated By: Tonio Cole Dictated Date: 05/16/2024 08:09 ET Assigned Physician: Tonio Cole Reviewed and Electronically Signed By: Tonoi Cole Signed Date: 05/16/2024 08:12 ET Workstation ID: [id number] Transcribed By: Self Edit Transcribed Date: 05/16/2024 08:09 ET us Geraldo Rajan MD IMG BI PROCEDURES Final Result * BD Bone Density DXA Axial Skeleton (04/19/2024 2:13 PM EST) Anatomical Region Laterality Modality Wrist, Hip, L-spine Bone Densito metry 04/19/2024 4:10 PM EST Impressions 04/19/2024 4:11 PM EST Osteopenia. [id number] -------- FINAL REPORT -------- Dictated By: Bisi Wilson Dictated Date: 04/19/2024 16:10 ET Assigned Physician: Bisi Wilson Reviewed and Electronically Signed By: Bisi Wilson Signed Date: 04/19/2024 16:11 ET Workstation ID: [id number] Transcribed By: Self Edit Transcribed Date: 04/19/2024 16:10 ET Narrative 04/19/2024 4:11 PM EST History: Low estrogen state due to menopause. Current smoker. Comparison: 05/31/21 Findings: Bone densitometry is performed utilizing dual energy x-ray absorptiometry (DXA) in the [employer] unit. The lumbar spine and proximal femora [...] utilizing dual energy x-ray absorptiometry(DXA) in the [employer] unit. The lumbar spine and proximal [...] Osteoporotic 9.5percent Hip 2.3 percent. IMPRESSION: Osteopenia. [id number] -------- FINAL REPORT -------- Dictated By: Bisi Wilson Dictated Date: 04/19/2024 16:10 ET Assigned Physician: Bisi Wilson Reviewed and Electronically Signed By: Bisi Wilson Signed Date: 04/19/2024 16:11 ET Workstation ID: [id number] Transcribed By: Self Edit Transcribed Date: 04/19/2024 16:10 ET Geraldo Rajan MD IMG DXA PROCEDURES Final Result from Last 3 Months or Most Recently Relevant to Health Maintenance Insurance [facility] u[employer]entioned [employer]AN Care Teams Die Stamper Relationship Specialty Start Date End Date Geraldo Rajan MD [address] [place] [id number] PCP - General Internal Medicine 04/19/24
== END 2025-03-29 13:16 | disposition home or self-care (01) ==
LOC: HO.HMCC 12:50
PROVIDERS: PCP Internal Medicine; Visit Provider Internal Medicine
DX: J44.9 Chronic obstructive pulmonary disease, unspecified (principal); R63.4 Abnormal weight loss; R63.0 Anorexia; F51.3 Sleepwalking [somnambulism]; I65.23 Occlusion and stenosis of bilateral carotid arteries; E03.8 Other specified hypothyroidism; I48.0 Paroxysmal atrial fibrillation; E78.9 Disorder of lipoprotein metabolism, unspecified; G47.9 Sleep disorder, unspecified; K21.9 Gastro-esophageal reflux disease without esophagitis; Z92.29 Personal history of other drug therapy; F10.20 Alcohol dependence, uncomplicated; I25.118 Atherosclerotic heart disease of native coronary artery with other forms of angina pectoris; Z71.41 Alcohol abuse counseling and surveillance of alcoholic

== ENCOUNTER → 2025-03-29 12:49 | Outpatient (BNVA) | payer OTHER, SELFPAY | PROVIDERS: PCP Internal Medicine; Visit Provider Internal Medicine | DX: I10 Essential (primary) hypertension (principal); R53.1 Weakness; J44.9 Chronic obstructive pulmonary disease, unspecified; F32.9 Major depressive disorder, single episode, unspecified; E78.5 Hyperlipidemia, unspecified; R63.0 Anorexia; F51.3 Sleepwalking [somnambulism]; I65.23 Occlusion and stenosis of bilateral carotid arteries; E03.8 Other specified hypothyroidism; I48.0 Paroxysmal atrial fibrillation; K21.9 Gastro-esophageal reflux disease without esophagitis; I25.118 Atherosclerotic heart disease of native coronary artery with other forms of angina pectoris; F10.20 Alcohol dependence, uncomplicated; Z71.41 Alcohol abuse counseling and surveillance of alcoholic; Z68.1 Body mass index [BMI] 19.9 or less, adult; Z92.29 Personal history of other drug therapy | CPT/HCPCS: 99212 ==